=== PATIENT | female | born 1950 | race Asian ===

== ENCOUNTER 2018-12-17 23:01 | Inpatient (IN) | payer OTHER ==
[2018-12-17] MEDS ORDERED: oxyCODONE HCL 5 MG TABLET PO ONE (23:42)
[2018-12-17] MEDS ORDERED: oxyCODONE HCL 5 MG TABLET ONE (23:42)
--- NOTE | 2018-12-17 23:57 | PDOC ---
Documentation entered by Jorje Quinones SCRIBE, acting as scribe for Yen Hernandez DO. Yen Hernandez DO: This documentation has been prepared by the Joni phillips Daniel, SCRIBE, under my direction and personally reviewed by me in its entirety. I confirm that the documentation accurately reflects all work, treatment, procedures, and medical decision making performed by me. Attending Attestation - Resident Resident Name: [email or web address] - ED Attending Attestation I have performed the following: I have examined & evaluated the patient, The case was reviewed & discussed with the resident, I agree w/resident's findings & plan, Exceptions are as noted - HPI HPI: 12/17/18 23:47 The patient is a 68 year old female with a past medical history of herniated disk and hepatic hemangioma here today for evaluation of right sided hip and back pain. The patient reports that she was standing on a pair of chairs when she hit her back on a shelf stepping down and fell landing on her back. She denies any head strike or loss of consciousness. She states that she wasnt able to stand due to the pain in her right hip and right lower back. She also notes some tingling in her legs after the fall. Patient denies headache, lightheadedness. Denies fever, chills. Allergies: NKA - Physicial Exam PE: 12/17/18 23:47 Constitutional: Awake, alert, oriented. No acute distress. Head: Normocephalic. Atraumatic Eyes: PERRL. EOMI. Conjunctivae are not pale. ENT: Mucous membranes are moist and intact. Posterior pharynx without exudates or erythema. Uvula midline. Neck: Supple. Full ROM. No lymphadenopathy. Cardiovascular: Regular rate. Regular rhythm. S1, S2 regular. Distal pulses are 2+ and symmetric. Pulmonary/Chest: No evidence of respiratory distress. Clear to auscultation bilaterally No wheezing, rales or rhonchi. Abdominal: Soft and non-distended. There is no tenderness. No rebound, guarding or rigidity. No organomegaly. No palpable masses. Good bowel sounds. Back: +right buttock, paraspinal L spine, and SI joint tenderness. No midline tenderness. No CVA tenderness. Musculoskeletal: No edema. No cyanosis. No clubbing. Full range of motion in all extremities. Nocalf tenderness. Radial/pedal pulses are intact and 2+ bilaterally Skin: Skin is warm and dry. No petechiae. No purpura. Neurological: Alert and oriented to person, place, and time. Cranial nerves II -XII are grossly intact. Normal speech. Strength is grossly symmetric. No sensory deficits. No signs of cauda equina. No parasthesia to the genital region. Psychiatric: Good eye contact. Normal interaction, affect and behavior. - Medical Decision Making 12/17/18 23:54 I, Dr. Yen Hernandez, DO, attest that this document has been prepared under my direction and personally reviewed by me in its entirety. I further attest, that it accurately reflects all work, treatment, procedures and medical decision -making performed by me. a/p: 68yo female with hx of chronic back pain with a mechanical fall off 2 chairs hitting her back against the counter and landed on her back -pt unable to walk after the event -pt with acute back pain and R hip pain -pt with limited ROM of RLE secondary to fall -pt without signs/symptoms of caude equina -muscle strength 5/5 LE and sensation intact -no saddle paresthesias -no head injury or loc -will send labs, xrays, pain control -ua -oxycodone ordered for pain 12/18/18 00:59 labs reviewed 12/18/18 01:00 no blood in the urine 12/18/18 01:36 no acute fx seen on xray 12/18/18 02:10 pt unable to ambulate will order ct imaging of lumbar spine and pelvis 12/18/18 02:19 if no fx and unable to ambulate will need pt eval in am and poss placment, pain control Heart Score/ECG Review - ECG Intrepretation Comment:: 12/17/18 23:57 sinus at 76, nl axis, nl interval, no acute st/t wave findings
--- NOTE | 2018-12-18 00:01 | PDOC ---
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 Battery [employer] Cell ID: [id number] This is a 68 year old female with PMH significant for depression. She presented to the ER with complaints of severe lower back/hip pain that began a few hours after she suffered from a fall. She was in her kitchen, standing on a chair to reach an item on a shelf. She fell down and landed on the right side of her hip. She did not hit her head, and did not suffer from LOC. She was unable to get up, and called her friend for help, who arrived in 5 minutes. She then called an ambulance. She denies fever, visual changes, SOB, chest pain,nausea, or vomiting. Past History - Past Medical History Allergies/Adverse Reactions: Allergies Allergy/AdvReac Type Severity Reaction Status Date / Time No Known Allergies Allergy Verified 12/17/18 23:36 Home Medications: Ambulatory Orders NK [No Known Home Medication] 12/17/18 COPD: No Other medical history: Disk in back - Immunization History Immunization Up to Date: Yes - Psycho Social/Smoking Cessation Hx Smoking History: Never smoked Have you smoked in the past 12 months: No Information on smoking cessation initiated: No Hx Alcohol Use: No Drug/Substance Use Hx: No Review of Systems - Review of Systems Constitutional: No: Symptoms Reported, See HPI, Chills, Diaphoresis, Fever, Loss of Appetite, Malaise, Night Sweats, Weakness, Weight Stable, Unintentional Wgt. Loss, Unexplained wgt Loss, Other HEENTM: No: Symptoms Reported, See HPI, Eye Pain, Blurred Vision, Tearing, Recent change in vision, Double Vision, Cataracts, Ear Pain, Ocular Prothesis, Ear Discharge, Nose Pain, Nose Congestion, Tinnitus, Nose Bleeding, Hearing Loss , Throat Pain, Throat Swelling, Mouth Pain, Dental Problems, Difficulty Swallowing, Mouth Swelling, Other Cardiac (ROS): No: Symptoms Reported, See HPI, Chest Pain, Edema, Irregular Heart Rate, Lightheadedness, Palpitations, Syncope, Chest Tightness, Other ABD/GI: No: Symptoms Reported, See HPI, Abdominal Distended, Abd. Pain w/ defecation, Blood Streaked Bowels, Constipated, Diarrhea, Difficulty Swallowing , Nausea, Poor Appetite, Poor Fluid Intake, Rectal Bleeding, Vomiting, Indigestion, Abdominal cramping, Tarry Stools, Other Neurological: No: Symptoms reported, See HPI, Headache, Numbness, Paresthesia, Pre-Existing Deficit, Seizure, Tingling, Tremors, Weakness, Unsteady Gait, Ataxia, Dizziness, Other Psychiatric: No: Anxiety, Depression, Frequent Crying, Stressors, Sleep Pattern Change, Emotional Problems, Mood Swings, Change in Appetite, Other *Physical Exam - Vital Signs Last Vital Signs Temp Pulse Resp BP Pulse Ox 98.3 F 71 21 H 184/92 H 100 12/17/18 23:01 12/17/18 23:01 12/17/18 23:01 12/17/18 23:01 12/17/18 23:01 - Physical Exam Comments: 12/18/18 00:04 TRAVEL AGENT: Limited ROM of RLE, muscle strength 5/5 LE, sensations intact General Appearance: Yes: Appropriately Dressed, Apparent Distress HEENT: positive: TMs Normal, Pharynx Normal Neck: positive: Trachea midline Respiratory/Chest: positive: Lungs Clear, Normal Breath Sounds Cardiovascular: positive: Regular Rhythm, Regular Rate Gastrointestinal/Abdominal: positive: Normal Bowel Sounds, Soft Heart Score/ECG Review - Age Age: >/= 65 - ECG Intrepretation Rhythm: Regular Rhythm ED Treatment Course - LABORATORY CBC & Chemistry Diagram: 12/17/18 23:50 12/17/18 23:50 - Medications Given in the ED: ED Medications Discontinued Medications Generic Name Dose Route Start Last Admin Trade Name Rip PRN Reason Stop Dose Admin Oxycodone HCl 5 mg 12/17/18 23:42 12/17/18 23:45 Roxicodone - PO 12/17/18 23:43 5 mg ONCE ONE Administration Medical Decision Making - Medical Decision Making 12/18/18 00:06 - CBC/CMP - Xrays hip, lumbar spine - UA - Oxycodone 5mg 12/18/18 01:03 - Imaging reviewed, no abnormalities - CT Pelvis, Lumbar spine ordered 12/18/18 03:43 - CT Lumbar spine shows fracture of L1 and L2 transverse process - Reassessed for pain and neuro deficits, complains of continued pain but no numbness/tingling - Morphine 2mg ordered - Will consult Ortho 12/18/18 05:04 - Signed out to admitting team Discharge - Discharge Information Problems reviewed: Yes Clinical Impression/Diagnosis: Lumbar vertebral fracture Condition: Guarded - Admission Yes - Follow up/Referral - Patient Discharge Instructions - Post Discharge Activity
[2018-12-18 00:30] LABS: BASO % 0.4 % (0-2.0); EOS % 0.4 % (0-4.5); HEMATOCRIT 38.9 % (32.4-45.2); LYMPH % 11.7 % (8-40); MCH 29.4 pg (25.7-33.7); MCHC 33.4 g/dl (32.0-36.0); MEAN CELL VOLUME 88.1 fl (80-96); MEAN PLT VOLUME 8.8 fl (7.5-11.1); MONO % 4.8 % (3.8-10.2); NEUT % 82.7 % (42.8-82.8); PLATELET COUNT 240 K/MM3 (134-434); RBC 4.42 M/mm3 (3.60-5.2); RDW 13.1 % (11.6-15.6); WHITE BLOOD COUNT 10.3 K/mm3 (4.0-10.0)
[2018-12-18 00:43] LABS: INR 0.92 (0.83-1.09); PROTHROMBIN TIME (PATIENT) 10.9 SEC (9.7-13.0)
[2018-12-18 00:55] LABS: EPI CELLS 1.4 /HPF (0-5/HPF); HYALINE CASTS 0 /lpf (0-8); PH,URINE >= 9.0 (5.0-8.0); URINE APPEARANCE CLEAR; URINE BACTERIA 18.6 /hpf (NEGATIVE); URINE BILIRUBIN NEGATIVE (NEGATIVE); URINE COLOR YELLOW; URINE GLUCOSE (UA) NEGATIVE (NEGATIVE); URINE KETONE NEGATIVE (NEGATIVE); URINE LEUK ESTERASE 1+ (NEGATIVE); URINE NITRITE NEGATIVE (NEGATIVE); URINE PROTEIN NEGATIVE (NEGATIVE); URINE RBC 1 /hpf (0-4); URINE UROBILINOGEN 0.2 mg/dL (0.2-1.0); URINE WBC 3 /hpf (0-5)
[2018-12-18 00:57] LABS: BILIRUBIN,TOTAL 0.5 mg/dL (0.2-1); BLOOD UREA NITROGEN 15.7 mg/dL (7-18); CALCIUM 9.2 mg/dL (8.5-10.1); CREATININE 0.8 mg/dL (0.55-1.3); POTASSIUM 3.7 mmol/L (3.5-5.1); TOT PROT 7.4 g/dl (6.4-8.2)
[2018-12-18] MEDS ORDERED: morphine CARPU-JECT 4 MG/1 ML DISP.SYRIN IVPUSH ONE (03:42)
[2018-12-18] MEDS ORDERED: MORPHINE SULFATE 2 MG/ML VIAL ONE (03:45)
[2018-12-18] MEDS ORDERED: ACETAMINOPHEN 1000 MG/100 ML VIAL (NON FORMULARY) IVPB PRN (05:25)
[2018-12-18] MEDS: SODIUM CHLORIDE 1,000 ML IV SCH ×2 (05:30→09:27)
--- NOTE | 2018-12-18 05:35 | PN ---
Teaching Attending Note Name of Resident: Luis Duarte ATTENDING PHYSICIAN STATEMENT I saw and evaluated the patient. I reviewed the resident's note and discussed the case with the resident. I agree with the resident's findings and plan as documented. SUBJECTIVE: 68 year old [place] woman s/p fall last night off 2 chairs, landed on back, imaging of lumbar spine showed that she sustained fractures to transverse processes of L1-L2. There was no LOC. Denied any loss of sensation. OBJECTIVE: Last Vital Signs Temp Pulse Resp BP Pulse Ox 98.3 F 83 16 145/68 95 12/18/18 06:37 12/18/18 06:37 12/18/18 06:37 12/18/18 06:37 12/18/18 06:37 gen -appears uncomfortable heent -atraumatic, no tenderness, perrla neck supple, no posterior cervical tenderness ext -no shoulder or hip tenderness, no loss of sensation to lower extremities, motor exam limited to pain Abnormal Lab Results 12/17/18 12/17/18 12/17/18 23:50 23:50 23:50 WBC 10.3 H Absolute Neuts (auto) 8.5 H PTT (Actin FS) 23.5 L Anion Gap 7 L Random Glucose 126 H Calcium Urine pH Ur Specific [place] Ur Leukocyte Esterase 12/18/18 12/18/18 00:32 05:40 WBC Absolute Neuts (auto) PTT (Actin FS) Anion Gap 7 L Random Glucose 124 H Calcium 8.4 L Urine pH >= 9.0 H Ur Specific [place] 1.007 L Ur Leukocyte Esterase 1+ H imaging reviewed ASSESSMENT AND PLAN: Right L1-L2 transverse process fracture. No neuro deficits appreciated. Leukocytosis reactive secondary to trauma. -med/surg -npo -pt, ptt, t/s -ortho consult -pain control -bed rest -dvt ppx
[2018-12-18 05:46] LABS: HEMATOCRIT 37.4 % (32.4-45.2); HEMOGLOBIN 12.8 GM/dL (10.7-15.3); MCHC 34.3 g/dl (32.0-36.0); MEAN CELL VOLUME 87.5 fl (80-96); MEAN PLT VOLUME 8.2 fl (7.5-11.1); PLATELET COUNT 229 K/MM3 (134-434); RBC 4.28 M/mm3 (3.60-5.2); RDW 12.9 % (11.6-15.6); WHITE BLOOD COUNT 7.6 K/mm3 (4.0-10.0)
[2018-12-18 05:59] LABS: PROTHROMBIN TIME (PATIENT) 11.8 SEC (9.7-13.0)
[2018-12-18 06:02] LABS: ACTIVATED PTT 35.2 SECONDS (25.2-36.5)
[2018-12-18 06:11] LABS: ALBUMIN 3.6 g/dl (3.4-5.0); BILIRUBIN,TOTAL 0.5 mg/dL (0.2-1); BLOOD UREA NITROGEN 12.4 mg/dL (7-18); CALCIUM 8.4 mg/dL (8.5-10.1); CREATININE 0.7 mg/dL (0.55-1.3); POTASSIUM 3.9 mmol/L (3.5-5.1); TOT PROT 6.7 g/dl (6.4-8.2)
--- NOTE | 2018-12-18 06:38 | CONSULT ---
Consultation: REQUESTING PROVIDER: CONSULT REQUEST: We have been asked to medically evaluate this patient for ( specify). HISTORY OF PRESENT ILLNESS: REVIEW OF SYSTEMS: CONSTITUTIONAL: Absent: fever, chills, diaphoresis, generalized weakness, malaise, loss of appetite, weight change HEENT: Absent: rhinorrhea, nasal congestion, throat pain, throat swelling, difficulty swallowing, mouth swelling, ear pain, eye pain, visual changes CARDIOVASCULAR: Absent: chest pain, syncope, palpitations, irregular heart rate, lightheadedness , peripheral edema RESPIRATORY: Absent: cough, shortness of breath, dyspnea with exertion, orthopnea, wheezing, stridor, hemoptysis GASTROINTESTINAL: Absent: abdominal pain, abdominal distension, nausea, vomiting, diarrhea, constipation, melena, hematochezia GENITOURINARY: Absent: dysuria, frequency, urgency, hesitancy, hematuria, flank pain, genital pain MUSCULOSKELETAL: Absent: myalgia, arthralgia, joint swelling, back pain, neck pain SKIN: Absent: rash, itching, pallor HEMATOLOGIC/IMMUNOLOGIC: Absent: easy bleeding, easy bruising, lymphadenopathy, frequent infections ENDOCRINE: Absent: unexplained weight gain, unexplained weight loss, heat intolerance, cold intolerance NEUROLOGIC: Absent: headache, focal weakness or paresthesias, dizziness, unsteady gait, seizure, mental status changes, bladder or bowel incontinence PSYCHIATRIC: Absent: anxiety, depression, suicidal or homicidal ideation, hallucinations. PHYSICAL EXAMINATION Vital Signs - 24 hr 12/17/18 12/18/18 12/18/18 23:01 01:35 04:49 Temperature 98.3 F Pulse Rate 71 Pulse Rate [ 75 Apical] Respiratory 21 H 19 Rate Blood Pressure 184/92 H Blood Pressure 154/94 [Right Arm] O2 Sat by Pulse 100 100 99 Oximetry (%) 12/18/18 05:58 Temperature 98.5 F Pulse Rate Pulse Rate [ 78 Apical] Respiratory 18 Rate Blood Pressure Blood Pressure 148/82 [Right Arm] O2 Sat by Pulse 96 Oximetry (%) GENERAL: Awake, alert, and fully oriented, in no acute distress. HEAD: Normal with no signs of trauma. EYES: Pupils equal, round and reactive to light, extraocular movements intact, sclera anicteric, conjunctiva clear. No lid lag. EARS, NOSE, THROAT: Ears normal, nares patent, oropharynx clear without exudates. Moist mucous membranes. NECK: Normal range of motion, supple without lymphadenopathy, JVD, or masses. LUNGS: Breath sounds equal, clear to auscultation bilaterally. No wheezes, and no crackles. No accessory muscle use. HEART: Regular rate and rhythm, normal S1 and S2 without murmur, rub or gallop. ABDOMEN: Soft, nontender, not distended, normoactive bowel sounds, no guarding, no rebound, no masses. No hepatomegaly or splenomegaly. MUSCULOSKELETAL: Normal range of motion at all joints. No bony deformities or tenderness. No CVA tenderness. UPPER EXTREMITIES: 2+ pulses, warm, well-perfused. No cyanosis. No clubbing. Cap refill <2 seconds. No peripheral edema. LOWER EXTREMITIES: 2+ pulses, warm, well-perfused. No calf tenderness. No peripheral edema. NEUROLOGICAL: Cranial nerves II-XII intact. Normal speech. Normal gait. PSYCHIATRIC: Cooperative. Good eye contact. Appropriate mood and affect. SKIN: Warm, dry, normal turgor, no rashes or lesions noted. Laboratory Results - last 24 hr 12/17/18 12/17/18 12/17/18 23:50 23:50 23:50 WBC 10.3 H RBC 4.42 Hgb 13.0 Hct 38.9 MCV 88.1 MCH 29.4 MCHC 33.4 RDW 13.1 Plt Count 240 MPV 8.8 Absolute Neuts (auto) 8.5 H Neutrophils % 82.7 Lymphocytes % 11.7 Monocytes % 4.8 Eosinophils % 0.4 Basophils % 0.4 Nucleated RBC % 0 PT with INR INR PTT (Actin FS) 23.5 L Sodium 141 Potassium 3.7 Chloride 106 Carbon Dioxide 28 Anion Gap 7 L BUN 15.7 Creatinine 0.8 Est GFR (CKD-EPI)AfAm 87.80 Est GFR (CKD-EPI)NonAf 75.75 Random Glucose 126 H Calcium 9.2 Magnesium 2.0 Total Bilirubin 0.5 AST 21 ALT 30 Alkaline Phosphatase 78 Total Protein 7.4 Albumin 4.0 Urine Color Urine Appearance Urine pH Ur Specific [place] Urine Protein Urine Glucose (UA) Urine Ketones Urine Blood Urine Nitrite Urine Bilirubin Urine Urobilinogen Ur Leukocyte Esterase Urine WBC (Auto) Urine RBC (Auto) Urine Casts (Auto) U Epithel Cells (Auto) Urine Bacteria (Auto) Blood Type Antibody Screen 12/17/18 12/17/18 12/17/18 23:50 23:50 23:50 WBC RBC Hgb Hct MCV MCH MCHC RDW Plt Count MPV Absolute Neuts (auto) Neutrophils % Lymphocytes % Monocytes % Eosinophils % Basophils % Nucleated RBC % PT with INR 10.90 INR 0.92 PTT (Actin FS) Sodium Potassium Chloride Carbon Dioxide Anion Gap BUN Creatinine Est GFR (CKD-EPI)AfAm Est GFR (CKD-EPI)NonAf Random Glucose Calcium Magnesium Cancelled Total Bilirubin AST ALT Alkaline Phosphatase Total Protein Albumin Urine Color Urine Appearance Urine pH Ur Specific [place] Urine Protein Urine Glucose (UA) Urine Ketones Urine Blood Urine Nitrite Urine Bilirubin Urine Urobilinogen Ur Leukocyte Esterase Urine WBC (Auto) Urine RBC (Auto) Urine Casts (Auto) U Epithel Cells (Auto) Urine Bacteria (Auto) Blood Type A POSITIVE Antibody Screen Negative 12/18/18 12/18/18 12/18/18 00:32 05:40 05:40 WBC 7.6 RBC 4.28 Hgb 12.8 Hct 37.4 MCV 87.5 MCH 30.0 MCHC 34.3 RDW 12.9 Plt Count 229 MPV 8.2 Absolute Neuts (auto) Neutrophils % Lymphocytes % Monocytes % Eosinophils % Basophils % Nucleated RBC % PT with INR 11.80 INR 1.00 PTT (Actin FS) 35.2 Sodium Potassium Chloride Carbon Dioxide Anion Gap BUN Creatinine Est GFR (CKD-EPI)AfAm Est GFR (CKD-EPI)NonAf Random Glucose Calcium Magnesium Total Bilirubin AST ALT Alkaline Phosphatase Total Protein Albumin Urine Color Yellow Urine Appearance Clear Urine pH >= 9.0 H Ur Specific [place] 1.007 L Urine Protein Negative Urine Glucose (UA) Negative Urine Ketones Negative Urine Blood Negative Urine Nitrite Negative Urine Bilirubin Negative Urine Urobilinogen 0.2 Ur Leukocyte Esterase 1+ H Urine WBC (Auto) 3 Urine RBC (Auto) 1 Urine Casts (Auto) 0 U Epithel Cells (Auto) 1.4 Urine Bacteria (Auto) 18.6 Blood Type Antibody Screen 12/18/18 05:40 WBC RBC Hgb Hct MCV MCH MCHC RDW Plt Count MPV Absolute Neuts (auto) Neutrophils % Lymphocytes % Monocytes % Eosinophils % Basophils % Nucleated RBC % PT with INR INR PTT (Actin FS) Sodium 140 Potassium 3.9 Chloride 107 Carbon Dioxide 26 Anion Gap 7 L BUN 12.4 Creatinine 0.7 Est GFR (CKD-EPI)AfAm 103.18 Est GFR (CKD-EPI)NonAf 89.03 Random Glucose 124 H Calcium 8.4 L Magnesium Total Bilirubin 0.5 AST 19 ALT 26 Alkaline Phosphatase 72 Total Protein 6.7 Albumin 3.6 Urine Color Urine Appearance Urine pH Ur Specific [place] Urine Protein Urine Glucose (UA) Urine Ketones Urine Blood Urine Nitrite Urine Bilirubin Urine Urobilinogen Ur Leukocyte Esterase Urine WBC (Auto) Urine RBC (Auto) Urine Casts (Auto) U Epithel Cells (Auto) Urine Bacteria (Auto) Blood Type Antibody Screen Active Medications Generic Name Dose Route Start Last Admin Trade Name Freq PRN Reason Stop Dose Admin Acetaminophen 1,000 mg 12/18/18 05:25 12/18/18 05:30 Ofirmev Injection - IVPB 1,000 mg Q6H PRN Administration PAIN LEVEL 1-5 Sodium Chloride 1,000 mls @ 75 mls/hr 12/18/18 05:30 12/18/18 05:30 Normal Saline - IV 75 mls/hr ASDIR SAMI Administration ASSESSMENT/PLAN: Dispo: We will continue to follow the patient. Thank you for this consultative opportunity. Visit type - Emergency Visit Emergency Visit: Yes ED Registration Date: 12/18/18 Care time: The patient presented to the Emergency Department on the above date and was hospitalized for further evaluation of their emergent condition. - New Patient This patient is new to me today: Yes Date on this admission: 12/18/18 - Critical Care Critical Care patient: No ATTENDING PHYSICIAN STATEMENT I saw and evaluated the patient. I reviewed the resident's note and discussed the case with the resident. I agree with the resident's findings and plan as documented. SUBJECTIVE: OBJECTIVE: ASSESSMENT AND PLAN:
[2018-12-18] MEDS ORDERED: MORPHINE SULFATE 2 MG/ML VIAL IVPUSH PRN (06:47)
--- NOTE | 2018-12-18 06:47 | HP ---
CHIEF COMPLAINT: PCP: none HISTORY OF PRESENT ILLNESS: 68 y/o tamazight speaking female here for right sided lower back pain after fall that occurred last night. Patient states she was cleaning her shelves standing on a chair when she slipped and fell down. As she was falling she hit her back on a nearby table and then hit the floor. She fell on her back and did not hit her head. She denies LOC. She was not able to get up and crawled to a nearby phone which she used to call a friend who came to help her and called EMS. She is not able to quantify her pain but states it is very severe. Patient states she has not been able to walk since she fell down. She denies any dizziness, SOB , chest pain, incontinence, loss of sensation, or other symptoms. Patient lives at home by herself, has a son and daughter who are busy with their business so they are unable to check up on her often. ER course was notable for: (1) CT lumbar spine showing fracture of the right transverse process of L1 and L2 (2) unable to ambulate after pain medication Recent Travel: none PAST MEDICAL HISTORY: questionable medical history: herniated disc, hepatic hemangioma, depression PAST SURGICAL HISTORY: cervical surgery? Social History: Smoking: denies Alcohol: denies Drugs: denies Allergies No Known Allergies Allergy (Verified 12/17/18 23:36) HOME MEDICATIONS: Home Medications Medication Instructions Recorded NK [No Known Home Medication] 12/17/18 REVIEW OF SYSTEMS Constitutional: weakness, severe pain. denies loss of appetite, fever HEENT: denies sore throat, vision changes, congestion Cardio: denies chest pain, lightheadedness, palpitations Resp: denies SOB, wheezing GI: denies abd pain, N/V/D, constipation MSK: lower back pain, denies joint pain, neck pain SKIN: no ecchymosis or lacerations Neuro: denies incontinence, loss of consciousness, numbness, tingling, headache Psych: denies anxiety PHYSICAL EXAMINATION Vital Signs - 24 hr 12/17/18 12/18/18 12/18/18 23:01 01:35 04:49 Temperature 98.3 F Pulse Rate 71 Pulse Rate [ 75 Apical] Respiratory 21 H 19 Rate Blood Pressure 184/92 H Blood Pressure 154/94 [Right Arm] O2 Sat by Pulse 100 100 99 Oximetry (%) 12/18/18 12/18/18 05:58 06:37 Temperature 98.5 F 98.3 F Pulse Rate Pulse Rate [ 78 83 Apical] Respiratory 18 16 Rate Blood Pressure Blood Pressure 148/82 145/68 [Right Arm] O2 Sat by Pulse 96 95 Oximetry (%) GENERAL: severe distress secondary to pain. Awake, alert, and fully oriented HEAD: NC/AT EYES: PERRL, EOMI EARS, NOSE, THROAT: Ears normal, nares patent. Moist mucous membranes. NECK: supple. normal ROM, no cervical spine tenderness to palpation. LUNGS: Breath sounds equal, clear to auscultation bilaterally. No wheezes, and no crackles. No accessory muscle use. HEART: Regular rate and rhythm, normal S1 and S2 without murmur, rub or gallop. ABDOMEN: Soft, nontender, not distended, normoactive bowel sounds MUSCULOSKELETAL: tenderness to palpation over right lumbar region. No step offs palpated on cervical/thoracic/lumbar spine. no bony tenderness to palpation over right hip. unable to assess ROM of hip or back secondary to pain. UPPER EXTREMITIES: 2+ pulses, warm, well-perfused. No cyanosis. No clubbing. No peripheral edema. LOWER EXTREMITIES: 2+ pulses, warm, well-perfused. No calf tenderness. No peripheral edema. NEUROLOGICAL: Grossly normal sensation. normal babinski sign. 5/5 strength upper and lower extremity. CN 2-12 normal. PSYCHIATRIC: Cooperative. Good eye contact. Appropriate mood and affect. SKIN: no ecchymosis noted. Warm, dry, normal turgor, no rashes or lesions noted , normal capillary refill. Laboratory Results - last 24 hr 12/17/18 12/17/18 12/17/18 23:50 23:50 23:50 WBC 10.3 H RBC 4.42 Hgb 13.0 Hct 38.9 MCV 88.1 MCH 29.4 MCHC 33.4 RDW 13.1 Plt Count 240 MPV 8.8 Absolute Neuts (auto) 8.5 H Neutrophils % 82.7 Lymphocytes % 11.7 Monocytes % 4.8 Eosinophils % 0.4 Basophils % 0.4 Nucleated RBC % 0 PT with INR INR PTT (Actin FS) 23.5 L Sodium 141 Potassium 3.7 Chloride 106 Carbon Dioxide 28 Anion Gap 7 L BUN 15.7 Creatinine 0.8 Est GFR (CKD-EPI)AfAm 87.80 Est GFR (CKD-EPI)NonAf 75.75 Random Glucose 126 H Calcium 9.2 Magnesium 2.0 Total Bilirubin 0.5 AST 21 ALT 30 Alkaline Phosphatase 78 Total Protein 7.4 Albumin 4.0 Urine Color Urine Appearance Urine pH Ur Specific [place] Urine Protein Urine Glucose (UA) Urine Ketones Urine Blood Urine Nitrite Urine Bilirubin Urine Urobilinogen Ur Leukocyte Esterase Urine WBC (Auto) Urine RBC (Auto) Urine Casts (Auto) U Epithel Cells (Auto) Urine Bacteria (Auto) Blood Type Antibody Screen 12/17/18 12/17/18 12/17/18 23:50 23:50 23:50 WBC RBC Hgb Hct MCV MCH MCHC RDW Plt Count MPV Absolute Neuts (auto) Neutrophils % Lymphocytes % Monocytes % Eosinophils % Basophils % Nucleated RBC % PT with INR 10.90 INR 0.92 PTT (Actin FS) Sodium Potassium Chloride Carbon Dioxide Anion Gap BUN Creatinine Est GFR (CKD-EPI)AfAm Est GFR (CKD-EPI)NonAf Random Glucose Calcium Magnesium Cancelled Total Bilirubin AST ALT Alkaline Phosphatase Total Protein Albumin Urine Color Urine Appearance Urine pH Ur Specific [place] Urine Protein Urine Glucose (UA) Urine Ketones Urine Blood Urine Nitrite Urine Bilirubin Urine Urobilinogen Ur Leukocyte Esterase Urine WBC (Auto) Urine RBC (Auto) Urine Casts (Auto) U Epithel Cells (Auto) Urine Bacteria (Auto) Blood Type A POSITIVE Antibody Screen Negative 12/18/18 12/18/18 12/18/18 00:32 05:40 05:40 WBC 7.6 RBC 4.28 Hgb 12.8 Hct 37.4 MCV 87.5 MCH 30.0 MCHC 34.3 RDW 12.9 Plt Count 229 MPV 8.2 Absolute Neuts (auto) Neutrophils % Lymphocytes % Monocytes % Eosinophils % Basophils % Nucleated RBC % PT with INR 11.80 INR 1.00 PTT (Actin FS) 35.2 Sodium Potassium Chloride Carbon Dioxide Anion Gap BUN Creatinine Est GFR (CKD-EPI)AfAm Est GFR (CKD-EPI)NonAf Random Glucose Calcium Magnesium Total Bilirubin AST ALT Alkaline Phosphatase Total Protein Albumin Urine Color Yellow Urine Appearance Clear Urine pH >= 9.0 H Ur Specific [place] 1.007 L Urine Protein Negative Urine Glucose (UA) Negative Urine Ketones Negative Urine Blood Negative Urine Nitrite Negative Urine Bilirubin Negative Urine Urobilinogen 0.2 Ur Leukocyte Esterase 1+ H Urine WBC (Auto) 3 Urine RBC (Auto) 1 Urine Casts (Auto) 0 U Epithel Cells (Auto) 1.4 Urine Bacteria (Auto) 18.6 Blood Type Antibody Screen 12/18/18 05:40 WBC RBC Hgb Hct MCV MCH MCHC RDW Plt Count MPV Absolute Neuts (auto) Neutrophils % Lymphocytes % Monocytes % Eosinophils % Basophils % Nucleated RBC % PT with INR INR PTT (Actin FS) Sodium 140 Potassium 3.9 Chloride 107 Carbon Dioxide 26 Anion Gap 7 L BUN 12.4 Creatinine 0.7 Est GFR (CKD-EPI)AfAm 103.18 Est GFR (CKD-EPI)NonAf 89.03 Random Glucose 124 H Calcium 8.4 L Magnesium Total Bilirubin 0.5 AST 19 ALT 26 Alkaline Phosphatase 72 Total Protein 6.7 Albumin 3.6 Urine Color Urine Appearance Urine pH Ur Specific [place] Urine Protein Urine Glucose (UA) Urine Ketones Urine Blood Urine Nitrite Urine Bilirubin Urine Urobilinogen Ur Leukocyte Esterase Urine WBC (Auto) Urine RBC (Auto) Urine Casts (Auto) U Epithel Cells (Auto) Urine Bacteria (Auto) Blood Type Antibody Screen ASSESSMENT/PLAN: 68 y/o tamazight speaking female here for right sided lower back pain after fall that occurred last night. 1)Right lower back pain - CT shows right L1, L2 transverse process fracture -Ortho consulted, Dr. Mata -Pre-op labs ordered in case surgical intervention is required -Ofirmev and Morphine for pain control 2)HTN - questionable PMHx. HTN may be secondary to pain -monitor 3)Prophylaxis -SCDs -Holding anticoags in case orthopedics recommend surgical intervention 4)FEN -NS @ 75mls/hr 5)Disposition -admitted to med/surg Visit type - Emergency Visit Emergency Visit: Yes ED Registration Date: 12/18/18 Care time: The patient presented to the Emergency Department on the above date and was hospitalized for further evaluation of their emergent condition. - New Patient This patient is new to me today: Yes Date on this admission: 12/18/18 - Critical Care Critical Care patient: No ATTENDING PHYSICIAN STATEMENT I saw and evaluated the patient. I reviewed the resident's note and discussed the case with the resident. I agree with the resident's findings and plan as documented. SUBJECTIVE: OBJECTIVE: ASSESSMENT AND PLAN:
[2018-12-18] MEDS: DULoxetine HCL 30 MG CAPSULE.DR PO SCH ×2 (09:29→15:16)
[2018-12-18] MEDS ORDERED: oxyCODONE HCL 5 MG TABLET PO PRN (09:41)
--- NOTE | 2018-12-18 12:08 | PN ---
Teaching Attending Note Name of Resident: Acosta Fitch ATTENDING PHYSICIAN STATEMENT I saw and evaluated the patient. I reviewed the resident's note and discussed the case with the resident. I agree with the resident's findings and plan as documented. SUBJECTIVE: c.o.d. clerk phone [phone] used No fever or chills. No BARROW, no weakness. has lower back pain in R side. no incontinence to urine tr stool. NO urinary retention . reports epigastric pain intermittently for past few months. no radiation , no relation to exertion . not clear if food affects it. Very poor historian . No cp or epigastric pain now. No SOB. OBJECTIVE: NAD . looks in pain with any minimal movement MMM, no facial droop. CV: RRR, nO MRG Lungs: clear anteriorly , was not able to turn. Abd: soft, NT, ND , NL BS NEuro of LE: Strength 5/5 in hip flexion, knee extension, and ankle dorsiflexion and plantar flexion b/l. limited knee flexion due to pain. Nl sensation to light touch on both sides. Knee jerk and ankle jerk 2+ b/l ASSESSMENT AND PLAN: 68 y/o lady with h/o depression who came in with back pain after a mechanical fall. She was found to have Right L1, L2 transverse process Fx 1- Right L1, L2 transverse process Fx: no neuro deficits but lots of pain. - cont morphine and add oxycodone - add standing Tylenol - order TLSO brace - ortho consult pending - PT eval - Dc IVF 2- Depression: cont Cymbalta DVT PX
--- NOTE | 2018-12-18 12:13 | EKG ---
Test Reason : Blood Pressure : / mmHG Vent. Rate : 076 BPM Atrial Rate : 076 BPM P-R Int : 192 ms QRS Dur : 068 ms QT Int : 416 ms P-R-T Axes : 036 008 047 degrees QTc Int : 468 ms NORMAL SINUS RHYTHM POSSIBLE INFERIOR INFARCT , AGE UNDETERMINED ABNORMAL ECG NO PREVIOUS ECGS AVAILABLE Confirmed by PATRICIO LOMAX MD ([id number]) on 12/18/2018 12:13:11 PM Referred By: Confirmed By:PATRICIO LOMAX MD
[2018-12-18] MEDS: ACETAMINOPHEN 325 MG TABLET (FP) PO SCH ×2 (13:15→18:15)
[2018-12-18] MEDS: oxyCODONE HCL 5 MG TABLET PO PRN ×2 (13:17→21:29)
[2018-12-18] MEDS: HEPARIN NA (PORCINE) 5,000 UNITS/ML 1ML VIAL SQ SCH ×2 (13:18→21:29)
--- NOTE | 2018-12-18 14:29 | PN ---
Physical Exam: SUBJECTIVE: Patient seen and examined. Pt. states that she has lower right back pain that is worsened with movement. Pt. describes the pain as a throbbing. Pt. denies any numbness and tingling in her extremities or groin. Pt. denies any urinary or bowel habit changes. OBJECTIVE: Vital Signs Period Temp Pulse Resp BP Sys/Ram Pulse Ox Last 24 Hr 98.3 F-98.9 F 65-83 16-21 145-184/68-94 95-100 GENERAL: The patient is awake, alert, and fully oriented, in no acute distress. HEAD: Normal with no signs of trauma. EYES: Sclera anicteric, conjunctiva clear. ENT: Ears normal, nares patent, oropharynx clear without exudates, moist mucous membranes. LUNGS: Breath sounds equal, clear to auscultation bilaterally, no wheezes, no crackles, no accessory muscle use. HEART: Regular rate and rhythm, S1, S2 without murmur ABDOMEN: Soft, nontender, nondistended, normoactive bowel sounds, no guarding, no rebound EXTREMITIES: 2+ dorsal pedal pulses, warm, well-perfused, no edema. Straight- leg test negative, Pt. ROM limited by pain, no point tenderness along lumbar spine, Pt. endorses exquisite tenderness along right posterior hip and lumbar back without increase warmth or swelling. NEUROLOGICAL: Cranial nerves II through XII grossly intact. Normal speech, gait not observed. PSYCH: Normal mood, normal affect. SKIN: Warm, dry, normal turgor Laboratory Results - last 24 hr 12/17/18 12/17/18 12/17/18 23:50 23:50 23:50 WBC 10.3 H RBC 4.42 Hgb 13.0 Hct 38.9 MCV 88.1 MCH 29.4 MCHC 33.4 RDW 13.1 Plt Count 240 MPV 8.8 Absolute Neuts (auto) 8.5 H Neutrophils % 82.7 Lymphocytes % 11.7 Monocytes % 4.8 Eosinophils % 0.4 Basophils % 0.4 Nucleated RBC % 0 PT with INR INR PTT (Actin FS) 23.5 L Sodium 141 Potassium 3.7 Chloride 106 Carbon Dioxide 28 Anion Gap 7 L BUN 15.7 Creatinine 0.8 Est GFR (CKD-EPI)AfAm 87.80 Est GFR (CKD-EPI)NonAf 75.75 Random Glucose 126 H Calcium 9.2 Magnesium 2.0 Total Bilirubin 0.5 AST 21 ALT 30 Alkaline Phosphatase 78 Total Protein 7.4 Albumin 4.0 Urine Color Urine Appearance Urine pH Ur Specific [place] Urine Protein Urine Glucose (UA) Urine Ketones Urine Blood Urine Nitrite Urine Bilirubin Urine Urobilinogen Ur Leukocyte Esterase Urine WBC (Auto) Urine RBC (Auto) Urine Casts (Auto) U Epithel Cells (Auto) Urine Bacteria (Auto) Blood Type Antibody Screen 12/17/18 12/17/18 12/17/18 23:50 23:50 23:50 WBC RBC Hgb Hct MCV MCH MCHC RDW Plt Count MPV Absolute Neuts (auto) Neutrophils % Lymphocytes % Monocytes % Eosinophils % Basophils % Nucleated RBC % PT with INR 10.90 INR 0.92 PTT (Actin FS) Sodium Potassium Chloride Carbon Dioxide Anion Gap BUN Creatinine Est GFR (CKD-EPI)AfAm Est GFR (CKD-EPI)NonAf Random Glucose Calcium Magnesium Cancelled Total Bilirubin AST ALT Alkaline Phosphatase Total Protein Albumin Urine Color Urine Appearance Urine pH Ur Specific [place] Urine Protein Urine Glucose (UA) Urine Ketones Urine Blood Urine Nitrite Urine Bilirubin Urine Urobilinogen Ur Leukocyte Esterase Urine WBC (Auto) Urine RBC (Auto) Urine Casts (Auto) U Epithel Cells (Auto) Urine Bacteria (Auto) Blood Type A POSITIVE Antibody Screen Negative 12/18/18 12/18/18 12/18/18 00:32 05:40 05:40 WBC 7.6 RBC 4.28 Hgb 12.8 Hct 37.4 MCV 87.5 MCH 30.0 MCHC 34.3 RDW 12.9 Plt Count 229 MPV 8.2 Absolute Neuts (auto) Neutrophils % Lymphocytes % Monocytes % Eosinophils % Basophils % Nucleated RBC % PT with INR 11.80 INR 1.00 PTT (Actin FS) 35.2 Sodium Potassium Chloride Carbon Dioxide Anion Gap BUN Creatinine Est GFR (CKD-EPI)AfAm Est GFR (CKD-EPI)NonAf Random Glucose Calcium Magnesium Total Bilirubin AST ALT Alkaline Phosphatase Total Protein Albumin Urine Color Yellow Urine Appearance Clear Urine pH >= 9.0 H Ur Specific [place] 1.007 L Urine Protein Negative Urine Glucose (UA) Negative Urine Ketones Negative Urine Blood Negative Urine Nitrite Negative Urine Bilirubin Negative Urine Urobilinogen 0.2 Ur Leukocyte Esterase 1+ H Urine WBC (Auto) 3 Urine RBC (Auto) 1 Urine Casts (Auto) 0 U Epithel Cells (Auto) 1.4 Urine Bacteria (Auto) 18.6 Blood Type Antibody Screen 12/18/18 12/18/18 05:40 09:40 WBC RBC Hgb Hct MCV MCH MCHC RDW Plt Count MPV Absolute Neuts (auto) Neutrophils % Lymphocytes % Monocytes % Eosinophils % Basophils % Nucleated RBC % PT with INR INR PTT (Actin FS) Sodium 140 Potassium 3.9 Chloride 107 Carbon Dioxide 26 Anion Gap 7 L BUN 12.4 Creatinine 0.7 Est GFR (CKD-EPI)AfAm 103.18 Est GFR (CKD-EPI)NonAf 89.03 Random Glucose 124 H Calcium 8.4 L Magnesium Total Bilirubin 0.5 AST 19 ALT 26 Alkaline Phosphatase 72 Total Protein 6.7 Albumin 3.6 Urine Color Urine Appearance Urine pH Ur Specific [place] Urine Protein Urine Glucose (UA) Urine Ketones Urine Blood Urine Nitrite Urine Bilirubin Urine Urobilinogen Ur Leukocyte Esterase Urine WBC (Auto) Urine RBC (Auto) Urine Casts (Auto) U Epithel Cells (Auto) Urine Bacteria (Auto) Blood Type A POSITIVE Antibody Screen Active Medications Current Medications Acetaminophen (Tylenol -) 650 mg PO Q6H [facility] Last Admin: 12/18/18 13:15 Dose: 650 mg Duloxetine HCl (Cymbalta -) 30 mg PO DAILY [facility] Heparin Sodium (Porcine) (Heparin -) 5,000 unit SQ TID [facility] Last Admin: 12/18/18 13:18 Dose: 5,000 unit Morphine Sulfate (Morphine Sulfate) 1 mg IVPUSH Q4H PRN PRN Reason: PAIN LEVEL 4 - 6 Last Admin: 12/18/18 09:27 Dose: 1 mg Oxycodone HCl (Roxicodone -) 5 mg PO Q4H PRN PRN Reason: PAIN LEVEL 4 - 6 Oxycodone HCl (Roxicodone -) 10 mg PO Q4H PRN PRN Reason: PAIN LEVEL 7 - 10 Last Admin: 12/18/18 13:17 Dose: 10 mg ASSESSMENT/PLAN: Pt. is a 68 y.o. Luxem[place]ish-speaking F presenting for right sided lower back pain after mechanical fall. #Right lower back pain 2/[address] shows right L1, L2 transverse process fracture and chronic degenerative changes and associated disc bulges with spinal canal stenosis Xrays Negative Pelvic CT Negative c/w Physical Therapy- will likely need outpatient rehab. f/u Ortho consult (Dr. Maat) Given TLSO Brace c/w Tylenol and Oxycodone for pain control #Depression c/w Duloxetine 30mg #HTN possibly 2/2 pain, continue to monitor -monitor #DVT Ppx. -SCDs -Hep SQ #FEN -NS @ 75mls/hr Visit type - Emergency Visit Emergency Visit: Yes ED Registration Date: 12/18/18 Care time: The patient presented to the Emergency Department on the above date and was hospitalized for further evaluation of their emergent condition. - New Patient This patient is new to me today: No - Critical Care Critical Care patient: No - Discharge Referral Referred to [facility] Med [facility] No ATTENDING PHYSICIAN STATEMENT I saw and evaluated the patient. I reviewed the resident's note and discussed the case with the resident. I agree with the resident's findings and plan as documented. SUBJECTIVE: OBJECTIVE: ASSESSMENT AND PLAN:
--- NOTE | 2018-12-18 19:41 | CONS ---
DATE OF CONSULTATION: 12/18/2018 CHIEF COMPLAINT: Lower back pain. HISTORY OF PRESENT ILLNESS: This is a 68-year-old female who was brought into the ER by EMS after she fell off a chair while cleaning some shelves. She fell directly onto the back. She notes pain in the lower back. She notes a little bit of tingling in both feet, but no other areas of numbness. She has no saddle anesthesia. She has no incontinence or other change in bowel habits at this time. Patient does note a history of herniated disk about 25 years ago. PAST MEDICAL HISTORY: Significant for hepatic hemangioma, depression. PAST SURGICAL HISTORY: Noncontributory. SOCIAL HISTORY: Denies alcohol, tobacco, or drugs. ALLERGIES: Denies. MEDICATIONS: Denies. REVIEW OF SYMPTOMS: Negative for any fever, chills, nausea, vomiting, or night sweats. PHYSICAL EXAMINATION: General: This is an elderly female in no acute distress. She is seen lying in hospital bed. Back: Examination demonstrates tenderness in the lumbar paraspinal regions on both sides. She has no pain with log roll of either hip. Distally, sensation is intact to light touch. DP pulses 2+. EHL, FHL, TA, G, S 5/5. CT and x-ray images are reviewed. There are minimally displaced fractures of the lumbar first and second transverse processes on the right. She does have diffuse degenerative change as well. ASSESSMENT: Transverse process fractures. PLAN: I discussed today's findings with the patient. We utilized the [employer] phone for the entirety of her history and patient encounter. The patient has minimally displaced transverse process fractures. These should heal well with conservative care. At this point, she can resume a regular diet. She may weight bear as tolerated. I recommend starting physical therapy to mobilize her. These typically take several months to heal. For pain relief, she can use a combination between Tylenol, anti-inflammatories, and narcotics as needed. She may require the use of a walker for mobilization. We will plan to have followup x-ray in about 2 weeks. CARLIE MONTANA M.D. MANDA/[id number]
[2018-12-18] MEDS: CALCIUM 500MG/VIT-D 200 UNITS COMBO TABLET (FP) PO SCH (23:00)
[2018-12-19] MEDS: ACETAMINOPHEN 325 MG TABLET (FP) PO SCH ×4 (01:10→18:52)
[2018-12-19] MEDS: HEPARIN NA (PORCINE) 5,000 UNITS/ML 1ML VIAL SQ SCH ×3 (05:29→21:11)
[2018-12-19] MEDS: oxyCODONE HCL 5 MG TABLET PO PRN (05:33)
--- NOTE | 2018-12-19 09:05 | PN ---
Physical Exam: SUBJECTIVE: Patient seen and examined at bedside. Significant pain reported in the lower back, improved from yesterday. Has not yet walked by herself or with physical therapy. Reports that she has not yet urinated. Denies numbness/tingling/ weakness. No chest pain/SOB OBJECTIVE: Vital Signs Period Temp Pulse Resp BP Sys/Ram Pulse Ox Last 24 Hr 97.7 F-98.9 F 58-79 18-20 130-162/61-93 92-95 GENERAL: A&Ox3, mild distress during movement EYES: PERRLA, EOMI ENT: Moist mucus membranes LUNGS: CTA, no wheezes HEART: RRR, no murmurs ABDOMEN: Soft, nontender, BS present, bladder palpated and appears to be distended MUSCULOSKELETAL: No CVA Tenderness EXTREMITIES: 2+ pulses, no edema. NEUROLOGICAL: No motor or sensory deficits. Normal rectal tone. Laboratory Results - last 24 hr 12/18/18 09:40 Blood Type A POSITIVE Active Medications Generic Name Dose Route Start Last Admin Trade Name Freq PRN Reason Stop Dose Admin Acetaminophen 650 mg 12/18/18 13:00 12/19/18 07:11 Tylenol - PO 650 mg Q6H [facility]I Administration Calcium Carbonate/Cholecalciferol 1 tab 12/18/18 22:00 12/18/18 23:00 Os-Guillermo 500+D - PO 1 tab BID SAMI Administration Celecoxib 200 mg 12/19/18 10:00 Celebrex - PO DAILY [facility]I Duloxetine HCl 30 mg 12/18/18 10:00 12/18/18 15:16 Cymbalta - PO 30 mg DAILY [facility] Administration Heparin Sodium (Porcine) 5,000 unit 12/18/18 14:00 12/19/18 05:29 Heparin - SQ 5,000 unit TID [facility]I Administration Morphine Sulfate 1 mg 12/18/18 06:47 12/18/18 09:27 Morphine Sulfate IVPUSH 1 mg Q4H PRN Administration PAIN LEVEL 4 - 6 Oxycodone HCl 5 mg 12/18/18 09:41 Roxicodone - PO Q4H PRN PAIN LEVEL 4 - 6 Oxycodone HCl 10 mg 12/18/18 09:41 12/19/18 05:33 Roxicodone - PO 10 mg Q4H PRN Administration PAIN LEVEL 7 - 10 ASSESSMENT/PLAN: 68 year old female with a hx of depression admitted s/p fall and found to have R sided L1/2 transverse process fractures #L1/L2 Transverse Process Fractures: pain appears to be improving with pain medication. Patient has not yet been ambulatory and has not yet urinated -per ortho, conservative management and can dose with tylenol/NSAID/narcotics as necessary to control pain, no weight bearing restrictions -will need to walk with physical therapy as patient has not yet been able to ambulate; she cannot sit up at the side of the bed without significant pain -continue oxycodone 10mg Q4 PRN; last dose this morning 5:33am, may be able to DC morphine as last dose was yesterday morning -will need f/u Xray in 2 weeks -disposition will depend on ability to ambulate with physical therapy -continue Ca/Vitamin D -restart diet as there is no surgical intervention -workup for urinary retention as below #Urinary retention: post-void residual 400cc, concern for spinal process -bladder scan showed 400cc residual -thompson inserted -MRI thoracic/lumbar spine without contrast ordered #Depression: chronic -continue cymbalta #FEN -no standing fluids -replete lytes as necessary -regular diet restarted #Prophylaxis -heparin 5000 TID #Disposition: -med/surg, dispo will depend on ability to walk with PT and results of MRI, anticipate 1-2 days until DC Visit type - Emergency Visit Emergency Visit: No - New Patient This patient is new to me today: Yes Date on this admission: 12/19/18 - Critical Care Critical Care patient: No ATTENDING PHYSICIAN STATEMENT I saw and evaluated the patient. I reviewed the resident's note and discussed the case with the resident. I agree with the resident's findings and plan as documented. SUBJECTIVE: OBJECTIVE: ASSESSMENT AND PLAN:
[2018-12-19] MEDS: DULoxetine HCL 30 MG CAPSULE.DR PO SCH (09:21)
[2018-12-19] MEDS: CALCIUM 500MG/VIT-D 200 UNITS COMBO TABLET (FP) PO SCH ×2 (09:22→21:11)
[2018-12-19] MEDS: CELECOXIB 200 MG CAPSULE PO SCH (09:22)
--- NOTE | 2018-12-19 09:52 | PN ---
Teaching Attending Note Name of Resident: George Madrid ATTENDING PHYSICIAN STATEMENT I saw and evaluated the patient. I reviewed the resident's note and discussed the case with the resident. I agree with the resident's findings and plan as documented. 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 No N/V, no weakness in legs or feet, but has cramps in feet ( old before the fall). back pain is localized in backa nd does not radiate to LE . no SOB or CP . complains of no urinary incontinence but has difficulty with voiding OBJECTIVE: NAD . MMM, CV: RRR, no MRG Lungs: CTAB Abd: soft, NT, ND , NL BS . bladder is palpated and percussed just below the umbilicus NEuro of LE: Strength 5/5 in hip flexion, knee extension, and ankle dorsiflexion and plantar flexion b/l. 5/5 in knee flexion and extension b/l Nl sensation to light touch on both sides. Knee jerk jerk 2+ b/l , ankle jerk 1 + b/l rectal tone present ASSESSMENT AND PLAN: 68 y/o lady with h/o depression who came in with back pain after a mechanical fall. She was found to have Right L1, L2 transverse process Fx 1- Right L1, L2 transverse process Fx: - Dc morphine, cont oxy , and tylenol. - cont celebrex - TLSO brace ordered - ortho f/u as out pt . repeat xray in 2 weeks - PT eval - will check post void bladder scan 2- Depression: cont Cymbalta DVT PX
--- NOTE | 2018-12-19 12:18 | PN ---
Progress Note (short form) - Note Progress Note: Exam carried out w cyracom phone Pt notes increased pain after she tried to sit up in bed Notes a little tingling in her hands and feet No carolyn numbness No saddle anesthesia PE afvss lying in bed in apparent discomfort tender about lumbar region no pain with hip log roll ehl fhl ta g s 5/5 sensation intact to light touch 2+ dp pulses A/p: transverse process fractures while pt is in significant pain and has some urinary retention, she does not have sensory loss or motor loss in the lower extremities or saddle anesthesia making this less likely to be cauda equina anticipate significant stenosis on MRI based on her CT findings will add muscle relaxer to help her comfort can use brace as tolerated
[2018-12-19] MEDS ORDERED: CYCLOBENZAPRINE HCL 10 MG TABLET (FP) PO ONE (12:20)
[2018-12-20] MEDS: ACETAMINOPHEN 325 MG TABLET (FP) PO SCH ×4 (02:07→18:32)
[2018-12-20] MEDS: HEPARIN NA (PORCINE) 5,000 UNITS/ML 1ML VIAL SQ SCH (06:41)
[2018-12-20] MEDS: CELECOXIB 200 MG CAPSULE PO SCH (09:27)
[2018-12-20] MEDS: DULoxetine HCL 30 MG CAPSULE.DR PO SCH (09:27)
[2018-12-20] MEDS: CALCIUM 500MG/VIT-D 200 UNITS COMBO TABLET (FP) PO SCH ×2 (09:27→21:49)
[2018-12-20] MEDS: CYCLOBENZAPRINE HCL 10 MG TABLET (FP) PO PRN ×2 (09:33→21:49)
--- NOTE | 2018-12-20 11:33 | PN ---
Progress Note (short form) - Note Progress Note: MRI images reviewed. TP fractures appear old. Large disc herniation present. Neurosurgical consult is now in progress, will determine if surgery is necessary.
--- NOTE | 2018-12-20 11:34 | PN ---
Progress Note (short form) - Note Progress Note: Subjective: no fever or chills. No BARROW. has tingling in b/l LE. no weakness. no numbness. cont to have back pain, but better than yesterday Objective: Vital Signs: Last Vital Signs Temp Pulse Resp BP Pulse Ox 97.8 F 70 20 131/82 95 12/20/18 09:21 12/20/18 09:21 12/20/18 09:21 12/20/18 09:21 12/19/18 21:00 Physical Exam: NAD. MMM CV: RRR, no MRG. Lungs: CTAB Abd: soft, NT, ND, NL BS Neuro of LE: Strength 5/5 in hip flexion, knee extension and flexion, and ankle dorsiflexion and plantar flexion b/l. Nl sensation to light touch on both sides. Knee jerk 1+ b/l ASSESSMENT AND PLAN: 68 y/o lady with h/o depression who came in with back pain after a mechanical fall. She was found to have Right L1, L2 transverse process Fx 1- Possible Cuda equina syndrome. - MRI reviewed. large L4-5 disk herniation with compression of the sac. - will start Decadron - Spoke to Dr. Russell, who will review the images and let me know about the plan - cont thompson. - bed rest for now - dc SQ heparin 2- Back pain. - cont morphine, oxy, and tylenol. 2- Depression: cont Cymbalta. DVT PX: hold DVT px for any surgical intervention. Visit type - Emergency Visit Emergency Visit: Yes ED Registration Date: 12/18/18 Care time: The patient presented to the Emergency Department on the above date and was hospitalized for further evaluation of their emergent condition. - New Patient This patient is new to me today: No - Critical Care Critical Care patient: No
[2018-12-20] MEDS ORDERED: DEXAMETHASONE SOD PHOSPHATE 4 MG/1 ML VIAL ONE (11:40)
[2018-12-20] MEDS: oxyCODONE HCL 5 MG TABLET PO PRN ×2 (14:00→21:50)
[2018-12-20] MEDS: DEXAMETHASONE SOD PHOSPHATE 4 MG/1 ML VIAL IVPUSH SCH ×2 (14:02→21:51)
--- NOTE | 2018-12-20 20:30 | CONSULT ---
Consult - text type - Consultation Consultation Note: NEUROSURGERY CONSULTATION Lia Mai is a 68 year old Italian female who has a 25 year history of back pain from "discs" for which she has undergone various treatments. She was in her relative state of good health when she fell from a chair she was standing on while cleaning her house. She did not strike her head and denies losing consciousness. She had immediate increase in her back pain and was unable to arise and ambulate. She crawled to a phone and called a friend to assist her. The patient was brought to the [facility] ER by EMS. The patient describes her pain as severe and when examined, was found to have normal strength, sensation and rectal tone. The patient has not been able to get up or ambulate due to pain. She was found to have 400cc of urine in her bladder on ultrasound and due to potential Urinary retention, MRI Lumbar was ordered. This reveals L1 and L2 transverse process fractures as well a moderate L34 HNP and a large L45 HNP which effaces the lateral recess, however, does not fill the spinal canal. Thoracic MRI was also obtained and was generally unremarkable, however, on the registered radiologic technologist image, there is spondylosis at C56 and C67. Information for this note is from the chart and discussion with patient using the [employer] service. Patient concurs with the information regarding her long history of back pain and recent injury with exacerbation. She has not had any bowel or bladder incontinence and now has a [place] catheter in place. The patient has no numbness in her sacral dermatomes and normal motor and sensory function in her lower extremities. She does complain of paresthesias in her Right arm and leg which is new since her fall. Since the Lumbar discs are large, yet not compellingly clear sources of potential urinary retention and the patient has Right arm and leg symptoms with suggestion of Cervical spondylosis on Thoracic registered radiologic technologist image, I feel that STAT Cervical MRI would be appropriate. If no clear pathology explaining her symptoms is identified, will consider intervention for the Lumbar discs after discussion with patient and family in morning. - GI/DVT prophylaxis - Preop evauation - Cervical MRI without contrast (ordered) - NPO p MN for potential intervention in AM
[2018-12-21] MEDS: ACETAMINOPHEN 325 MG TABLET (FP) PO SCH ×4 (00:47→18:56)
[2018-12-21] MEDS: DEXAMETHASONE SOD PHOSPHATE 4 MG/1 ML VIAL IVPUSH SCH ×4 (02:02→21:53)
[2018-12-21] MEDS: oxyCODONE HCL 5 MG TABLET PO PRN ×2 (05:22→11:10)
[2018-12-21] MEDS: CYCLOBENZAPRINE HCL 10 MG TABLET (FP) PO PRN ×2 (05:22→14:37)
[2018-12-21] MEDS: DULoxetine HCL 30 MG CAPSULE.DR PO SCH (09:18)
[2018-12-21] MEDS: CALCIUM 500MG/VIT-D 200 UNITS COMBO TABLET (FP) PO SCH ×2 (09:18→21:53)
[2018-12-21] MEDS: SODIUM CHLORIDE 1,000 ML IV SCH (11:01)
[2018-12-21] MEDS: LIDOCAINE 5% TOPICAL PATCH TP SCH (11:08)
--- NOTE | 2018-12-21 12:52 | PN ---
Teaching Attending Note Name of Resident: Kanika Crespo ATTENDING PHYSICIAN STATEMENT I saw and evaluated the patient. I reviewed the resident's note and discussed the case with the resident. I agree with the resident's findings and plan as documented. SUBJECTIVE: No fever or chills. has lumbar pain. no radiation to LE . She has tingling in R upper extremity since yesterday. no tingling in LE. No fecal incontinence. OBJECTIVE: NAD. very dry MM CV: RRR, no MRG. Lungs: CTAB Abd: soft, NT, ND, NL BS. bladder is not palpated or percussed . thompson in with dark yellow urine Neuro o Strength 5/5 in hip flexion, knee extension and flexion, and ankle dorsiflexion and plantar flexion b/l. strength 5/5 in shoulder shrug, biceps, triceps, and hand senior operations analyst. Nl sensation to light touch on both sides. Knee jerk 2+ , biceps 2+ , ankle jerk 1+ , BR 1+ b/l ASSESSMENT AND PLAN: 68 y/o lady with h/o depression who came in with back pain after a mechanical fall. She was found to have Right L1, L2 transverse process Fx 1- Acute cervical disk herniation with cord compression: MRI of cervical spine images were reviewed with Dr. Russell. - Plan for discectomy tomorrow am - Cont steroids - Order a hard cervical collar 2- L4-5 Lumbar disc herniation: likley acute o n chronic , with compression on the sac. - cont pain meds - steroids - discectomy of L4-5 is to happen later after cervical discectomy 3- Urianry retention : Likely due to cord compression, could be due to narcotics and immobilization - cont thompson for now 4- Depression: cont Cymbalta. DVT PX: hold chemical DVT px for surgical intervention in am Scds
--- NOTE | 2018-12-21 13:05 | SPA.PREOP ---
- PRE-OP NOTE Dx: cervical spondylosis Planned Procedure: C6 anterior corpectomy and fusion Surgeon: Misael Patrick MD Last Vital Signs Temp Pulse Resp BP Pulse Ox 97.7 F 74 18 129/76 95 12/21/18 10:00 12/21/18 10:00 12/21/18 10:00 12/21/18 10:00 12/20/18 21:00 Lab Results WBC 7.6 K/mm3 (4.0-10.0) 12/18/18 05:40 RBC 4.28 M/mm3 (3.60-5.2) 12/18/18 05:40 Hgb 12.8 GM/dL (10.7-15.3) 12/18/18 05:40 Hct 37.4 % (32.4-45.2) 12/18/18 05:40 MCV 87.5 fl (80-96) 12/18/18 05:40 MCHC 34.3 g/dl (32.0-36.0) 12/18/18 05:40 RDW 12.9 % (11.6-15.6) 12/18/18 05:40 Plt Count 229 K/MM3 (134-434) 12/18/18 05:40 Sodium 140 mmol/L (136-145) 12/18/18 05:40 Potassium 3.9 mmol/L (3.5-5.1) 12/18/18 05:40 Chloride 107 mmol/L (98-107) 12/18/18 05:40 Carbon Dioxide 26 mmol/L (21-32) 12/18/18 05:40 Anion Gap 7 MMOL/L (8-16) L 12/18/18 05:40 BUN 12.4 mg/dL (7-18) 12/18/18 05:40 Creatinine 0.7 mg/dL (0.55-1.3) 12/18/18 05:40 Random Glucose 124 mg/dL (74-106) H 12/18/18 05:40 Calcium 8.4 mg/dL (8.5-10.1) L 12/18/18 05:40 Blood Type A POSITIVE 12/18/18 09:40 Antibody Screen Negative 12/17/18 23:50 INR 1.00 (0.83-1.09) 12/18/18 05:40 - ASSESSMENT/PLAN 1. Make NPO after midnight except po meds 2. GI/DVT PPX 3. Medical optimization / clearance 4. Consent to be obtained by surgeon after risks, benefits and alternatives discussed with patient and or Health Care Proxy.
--- NOTE | 2018-12-21 13:37 | PN ---
Physical Exam: SUBJECTIVE: Patient seen and examined. mod pain in her R lower back. OBJECTIVE: Vital Signs Period Temp Pulse Resp BP Sys/Ram Pulse Ox Last 24 Hr 97.7 F-98.4 F 66-74 18-18 117-129/69-77 95-95 GENERAL: The patient is awake, alert, and fully oriented, in mod distress. HEAD: Normal with no signs of trauma. EYES: PERRL, extraocular movements intact, sclera anicteric, conjunctiva clear. No ptosis. ENT: oropharynx clear without exudates, dry mucous membranes. LUNGS: Breath sounds equal, clear to auscultation bilaterally, no wheezes, no crackles, no accessory muscle use. HEART: Regular rate and rhythm, S1, S2 without murmur, rub or gallop. ABDOMEN: Soft, nontender, nondistended, normoactive bowel sounds, no guarding, no rebound, no hepatosplenomegaly, no masses. EXTREMITIES: 2+ pulses, warm, well-perfused, no edema. NEUROLOGICAL: Cranial nerves II through XII grossly intact. Normal speech, gait not observed. strength 5/5 in all extremities. Sensation intact Active Medications Generic Name Dose Route Start Last Admin Trade Name Freq PRN Reason Stop Dose Admin Acetaminophen 650 mg 12/18/18 13:00 12/21/18 06:02 Tylenol - PO 650 mg Q6H SAMI Administration Calcium Carbonate/Cholecalciferol 1 tab 12/18/18 22:00 12/21/18 09:18 Os-Guillermo 500+D - PO Not Given BID SAMI Cyclobenzaprine HCl 10 mg 12/19/18 12:21 12/21/18 05:22 Flexeril - PO 10 mg Q8H PRN Administration MUSCLE SPASMS Dexamethasone Sodium Phosphate 4 mg 12/20/18 15:00 12/21/18 11:08 Decadron Injection - IVPUSH 4 mg Q6H-IV SAMI Administration Duloxetine HCl 30 mg 12/18/18 10:00 12/21/18 09:18 Cymbalta - PO Not Given DAILY SAMI Sodium Chloride 1,000 mls @ 75 mls/hr 12/21/18 09:45 12/21/18 11:01 Normal Saline - IV 75 mls/hr ASDIR SAMI Administration Lidocaine 1 patch 12/21/18 10:00 12/21/18 11:08 Lidoderm Patch - TP 1 patch DAILY SAMI Administration Miscellaneous 1 each 12/21/18 22:00 Lidoderm Patch Removal MC DAILY@2200 SAMI Oxycodone HCl 5 mg 12/18/18 09:41 12/20/18 06:42 Roxicodone - PO 5 mg Q4H PRN Administration PAIN LEVEL 4 - 6 Oxycodone HCl 10 mg 12/18/18 09:41 12/21/18 11:10 Roxicodone - PO 10 mg Q4H PRN Administration PAIN LEVEL 7 - 10 ASSESSMENT/PLAN: 68 y/o lady with h/o depression who came in with back pain after a mechanical fall. She was found to have Right L1, L2 transverse process Fx Acute cervical disk herniation with cord compression MRI of cervical spine done Per Dr Patrick Plan for C6 anterior corpectomy and fusion tomorrow AM Cont decadron hard cervical collar preop lab GI/DVT PPX L4-5 Lumbar disc herniation MRI large disc herniation with compression on the sac. acute on chronic cont pain meds steroids discectomy of L4-5 is to happen later after cervical discectomy Urinary retention Likely due to cord compression? narcotics and immobilization ? cont thompson for now bladder scan revealed FEN NS @75 Depression cont Cymbalta. DVT PPX hold chemical DVT px for surgical intervention in am Scds Visit type - Emergency Visit Emergency Visit: Yes ED Registration Date: 12/18/18 Care time: The patient presented to the Emergency Department on the above date and was hospitalized for further evaluation of their emergent condition. - New Patient This patient is new to me today: Yes Date on this admission: 12/21/18 - Critical Care Critical Care patient: No - Discharge Referral Referred to [facility] Med P.C.: No ATTENDING PHYSICIAN STATEMENT I saw and evaluated the patient. I reviewed the resident's note and discussed the case with the resident. I agree with the resident's findings and plan as documented. SUBJECTIVE: OBJECTIVE: ASSESSMENT AND PLAN:
--- NOTE | 2018-12-21 14:17 | PN ---
Progress Note (short form) - Note Progress Note: Cervical MRI reveals spondylosis at C56 and C67 with acute disc protrusions in addition to hypertrophic posterior longitudinal ligaments and ligamentum flavum which, when combined with the congenitally narrow spinal canal, results in dorsal and ventral impingement of the CSF spaces and deformation of the Cervical spinal cord. The signal change within the cord suggests bruising which is consistent with the described trauma. Although her Lumbar spine pathology may certainly be painful and would likely benefit from treatment, her Cervical condition appears more concerning. I plan to offer the patient Cervical 6 corpectomy with reconstruction using a PEEK cage and anterior plating on Friday. I plan to discuss this in great detail with the patient and family with an diesel power mechanic.
[2018-12-21] MEDS ORDERED: LIDOCAINE PATCH REMOVAL MC SCH (22:00)
[2018-12-22] MEDS: ACETAMINOPHEN 325 MG TABLET (FP) PO SCH ×3 (01:50→14:14)
[2018-12-22] MEDS: DEXAMETHASONE SOD PHOSPHATE 4 MG/1 ML VIAL IVPUSH SCH ×4 (03:51→21:36)
[2018-12-22] MEDS: SODIUM CHLORIDE 1,000 ML IV SCH ×2 (03:55→10:52)
[2018-12-22 07:46] LABS: INR 0.91 (0.83-1.09); PROTHROMBIN TIME (PATIENT) 10.7 SEC (9.7-13.0)
[2018-12-22 07:49] LABS: ACTIVATED PTT 34.5 SECONDS (25.2-36.5)
[2018-12-22 08:01] LABS: BLOOD UREA NITROGEN 19.9 mg/dL (7-18); CREATININE 0.7 mg/dL (0.55-1.3); HEMATOCRIT 38.8 % (32.4-45.2); HEMOGLOBIN 13.2 GM/dL (10.7-15.3); LYMPH % 9.8 % (8-40); MAGNESIUM 2.3 mg/dL (1.8-2.4); MEAN CELL VOLUME 88.4 fl (80-96); MEAN PLT VOLUME 9.6 fl (7.5-11.1); MONO % 1.9 % (3.8-10.2); NEUT % 88.3 % (42.8-82.8); PHOSPHOROUS 3.4 mg/dL (2.5-4.9); PLATELET COUNT 240 K/MM3 (134-434); POTASSIUM 4.2 mmol/L (3.5-5.1); RBC 4.39 M/mm3 (3.60-5.2); RDW 13.2 % (11.6-15.6); WHITE BLOOD COUNT 6.4 K/mm3 (4.0-10.0)
[2018-12-22] MEDS: CALCIUM 500MG/VIT-D 200 UNITS COMBO TABLET (FP) PO SCH ×2 (09:58→21:30)
[2018-12-22] MEDS: DULoxetine HCL 30 MG CAPSULE.DR PO SCH (09:58)
[2018-12-22] MEDS ORDERED: PANTOPRAZOLE SODIUM 40 MG VIAL IVPUSH SCH (10:00)
[2018-12-22] MEDS: LIDOCAINE 5% TOPICAL PATCH TP SCH (10:58)
[2018-12-22] MEDS ORDERED: GENTAMICIN SO4 80 MG/2 ML VIAL ONE (13:18)
[2018-12-22] MEDS ORDERED: LIDOCAINE 1%-EPI 1:100,000 30 ML MDV IJ ONE (13:18)
[2018-12-22] MEDS ORDERED: THROMBIN (BOVINE) 5,000 UNIT VIAL TP ONE ×2 (13:19→15:02)
[2018-12-22] MEDS ORDERED: MIDAZOLAM HCL 2 MG/2 ML SINGLE DOSE VIAL ONE (14:24)
[2018-12-22] MEDS ORDERED: PROPOFOL 20 ML ONE (14:24)
[2018-12-22] MEDS ORDERED: VANCOMYCIN 1,000 MG VIAL (RESTRICTED TO ID ONLY) IVPB ONE ×2 (14:35→15:02)
[2018-12-22] MEDS ORDERED: ceFAZolin SODIUM 1 GM VIAL IVPB ONE ×2 (14:40→15:02)
[2018-12-22] MEDS ORDERED: GELATIN, ABSORBABLE 100 EACH SPONGE TP ONE ×2 (15:03→15:09)
[2018-12-22] MEDS ORDERED: GENTAMICIN SO4 80 MG/2 ML VIAL IVPB ONE (15:10)
[2018-12-22] MEDS ORDERED: BACITRACIN 50,000 UNITS VIAL TP ONE (15:10)
[2018-12-22] MEDS ORDERED: NEOSTIGMINE METHYLSULFATE 0.5 MG/1 ML - 10 ML MDV ONE (16:00)
[2018-12-22] MEDS ORDERED: ONDANSETRON 4 MG/2 ML VIAL ONE (16:01)
[2018-12-22] MEDS ORDERED: GLYCOPYRROLATE 0.2 MG/1 ML VIAL ONE (16:01)
[2018-12-22] MEDS ORDERED: DEXAMETHASONE SOD PHOSPHATE 4 MG/1 ML VIAL ONE (16:01)
--- NOTE | 2018-12-22 16:25 | PN ---
Physical Exam: SUBJECTIVE: Patient seen and examined. preop for today. continue to endorse pain in back and some numbness in upper R extremity OBJECTIVE: Vital Signs Period Temp Pulse Resp BP Sys/Ram Pulse Ox Last 24 Hr 98.2 F-99 F 59-72 18-18 110-138/63-81 97 GENERAL: The patient is awake, alert, and fully oriented, in mod distress. HEAD: Normal with no signs of trauma. EYES: PERRL, extraocular movements intact, sclera anicteric, conjunctiva clear. No ptosis. ENT: oropharynx clear without exudates, dry mucous membranes. LUNGS: Breath sounds equal, clear to auscultation bilaterally, no wheezes, no crackles, no accessory muscle use. HEART: Regular rate and rhythm, S1, S2 without murmur, rub or gallop. ABDOMEN: Soft, nontender, nondistended, normoactive bowel sounds, no guarding, no rebound, no hepatosplenomegaly, no masses. EXTREMITIES: 2+ pulses, warm, well-perfused, no edema. NEUROLOGICAL: Cranial nerves II through XII grossly intact. Normal speech, gait not observed. strength 5/5 in all extremities. Sensation intact except for upper extremity R numbness Laboratory Results - last 24 hr 12/22/18 12/22/18 12/22/18 06:50 06:50 06:50 WBC 6.4 RBC 4.39 Hgb 13.2 Hct 38.8 MCV 88.4 MCH 30.0 MCHC 34.0 RDW 13.2 Plt Count 240 MPV 9.6 D Absolute Neuts (auto) 5.6 Neutrophils % 88.3 H Lymphocytes % 9.8 Monocytes % 1.9 L Eosinophils % 0.0 D Basophils % 0.0 Nucleated RBC % 0 PT with INR 10.70 INR 0.91 PTT (Actin FS) 34.5 Sodium 141 Potassium 4.2 Chloride 108 H Carbon Dioxide 27 Anion Gap 6 L BUN 19.9 H Creatinine 0.7 Est GFR (CKD-EPI)AfAm 103.18 Est GFR (CKD-EPI)NonAf 89.03 Random Glucose 139 H Calcium 9.0 Phosphorus 3.4 Magnesium 2.3 Blood Type Antibody Screen 12/22/18 06:50 WBC RBC Hgb Hct MCV MCH MCHC RDW Plt Count MPV Absolute Neuts (auto) Neutrophils % Lymphocytes % Monocytes % Eosinophils % Basophils % Nucleated RBC % PT with INR INR PTT (Actin FS) Sodium Potassium Chloride Carbon Dioxide Anion Gap BUN Creatinine Est GFR (CKD-EPI)AfAm Est GFR (CKD-EPI)NonAf Random Glucose Calcium Phosphorus Magnesium Blood Type A POSITIVE Antibody Screen Negative Active Medications Generic Name Dose Route Start Last Admin Trade Name Freq PRN Reason Stop Dose Admin Acetaminophen 650 mg 12/18/18 13:00 12/22/18 14:14 Tylenol - PO Not Given Q6H SAMI Calcium Carbonate/Cholecalciferol 1 tab 12/18/18 22:00 12/22/18 09:58 Os-Guillermo 500+D - PO Not Given BID SAMI Cyclobenzaprine HCl 10 mg 12/19/18 12:21 12/21/18 14:37 Flexeril - PO 10 mg Q8H PRN Administration MUSCLE SPASMS Dexamethasone Sodium Phosphate 4 mg 12/20/18 15:00 12/22/18 09:41 Decadron Injection - IVPUSH 4 mg Q6H-IV SAMI Administration Duloxetine HCl 30 mg 12/18/18 10:00 12/22/18 09:58 Cymbalta - PO Not Given DAILY SAMI Sodium Chloride 1,000 mls @ 75 mls/hr 12/21/18 09:45 12/22/18 10:52 Normal Saline - IV Not Given ASDIR SAMI Lidocaine 1 patch 12/21/18 10:00 12/22/18 10:58 Lidoderm Patch - TP 1 patch DAILY SAMI Administration Miscellaneous 1 each 12/21/18 22:00 12/21/18 21:53 Lidoderm Patch Removal MC 1 each DAILY@2200 SAMI Administration Oxycodone HCl 5 mg 12/18/18 09:41 12/20/18 06:42 Roxicodone - PO 5 mg Q4H PRN Administration PAIN LEVEL 4 - 6 Oxycodone HCl 10 mg 12/18/18 09:41 12/21/18 11:10 Roxicodone - PO 10 mg Q4H PRN Administration PAIN LEVEL 7 - 10 Pantoprazole Sodium 40 mg 12/22/18 10:00 12/22/18 10:52 Protonix Iv IVPUSH 40 mg DAILY SMAI Administration ASSESSMENT/PLAN: 68 y/o lady with h/o depression who came in with back pain after a mechanical fall. She was found to have Right L1, L2 transverse process Fx Acute cervical disk herniation with cord compression MRI of cervical spine done Pt went for C6 anterior corpectomy and fusion today Cont decadron hard cervical collar preop lab done on GI/DVT PPX L4-5 Lumbar disc herniation MRI large disc herniation with compression on the sac. acute on chronic cont pain meds steroids discectomy of L4-5 is to happen later after cervical discectomy Urinary retention Likely due to cord compression? narcotics and immobilization ? cont thompson for now output monitor will follow after cervical decompression Depression cont Cymbalta. DVT PPX hold chemical DVT px for surgical intervention in am Scds Visit type - Emergency Visit Emergency Visit: Yes ED Registration Date: 12/18/18 Care time: The patient presented to the Emergency Department on the above date and was hospitalized for further evaluation of their emergent condition. - New Patient This patient is new to me today: No - Critical Care Critical Care patient: No - Discharge Referral Referred to [facility] Med P.C.: No ATTENDING PHYSICIAN STATEMENT I saw and evaluated the patient. I reviewed the resident's note and discussed the case with the resident. I agree with the resident's findings and plan as documented. SUBJECTIVE: OBJECTIVE: ASSESSMENT AND PLAN:
--- NOTE | 2018-12-22 16:31 | OP ---
Operative Note - Note: Operative Date: 12/22/18 Pre-Operative Diagnosis: Spondylosis at C56 and C67 with acute disc protrusions Operation: C6 corpectomy, PEEK cage and anterior plating Post-Operative Diagnosis: Same as Pre-op Surgeon: Misael Patrick Information Technology Account Manager: Josh Gregg Anesthesiologist/SOCIAL ORGANIZATION PROFESSOR: Yahaira Barakat Anesthesia: General Estimated Blood Loss (mls): 50 Drains & Tubes with Location: NAVYA Drains, Volume Out (mls): 100 (Cloudy w/ sediment) Fluid Volume Replaced (mls): 1,300
[2018-12-22] MEDS ORDERED: ACETAMINOPHEN INJECTION 100 ML IVPB ONE (16:39)
[2018-12-22] MEDS ORDERED: CYCLOBENZAPRINE HCL 10 MG TABLET (FP) PO PRN (16:56)
[2018-12-22] MEDS: ACETAMINOPHEN 1000 MG/100 ML VIAL (NON FORMULARY) IVPB SCH ×2 (17:00→23:29)
[2018-12-22] MEDS ORDERED: HYDROmorphone HCl 2 MG/ML VIAL ONE (17:07)
[2018-12-22] MEDS ORDERED: PROMETHAZINE HCL 25 MG/1 ML VIAL IVPUSH PRN (17:08)
[2018-12-22] MEDS ORDERED: ONDANSETRON 4 MG/2 ML VIAL IVPUSH PRN (17:08)
[2018-12-22] MEDS ORDERED: HYDROmorphone HCL CARPU-JECT 2 MG/1 ML DISP.SYRIN IVPUSH PRN (17:13)
[2018-12-22] MEDS ORDERED: CEFAZOLIN 1 GM in DEXTROSE 5%-WATER - 50 ML IVPB SCH (18:00)
[2018-12-22] MEDS ORDERED: ACETAMINOPHEN 325 MG TABLET (FP) PO SCH (19:00)
[2018-12-22] MEDS ORDERED: HYDROmorphone HCl 2 MG/ML VIAL IVPUSH PRN (19:28)
[2018-12-22] MEDS: LACTATED RINGERS SOLUTION 1,000 ML/1,000 ML INFUS.BAG IV SCH (19:38)
--- NOTE | 2018-12-22 20:50 | PN ---
Teaching Attending Note Name of Resident: Kanika Crespo ATTENDING PHYSICIAN STATEMENT I saw and evaluated the patient. I reviewed the resident's note and discussed the case with the resident. I agree with the resident's findings and plan as documented. SUBJECTIVE: Patient is comfortable with NAD. Patient is feeling better. OBJECTIVE: Vital Signs Temperature 98 F 12/22/18 19:00 Pulse Rate 76 12/22/18 19:00 Respiratory Rate 18 12/22/18 19:00 Blood Pressure 135/78 12/22/18 19:00 O2 Sat by Pulse Oximetry (%) 98 12/22/18 19:00 GENERAL: The patient is awake, alert, and fully oriented, in no acute distress. HEAD: Normal with no signs of trauma. EYES: PERRL, extraocular movements intact, sclera anicteric, conjunctiva clear. ENT: Ears normal, oropharynx clear without exudates, moist mucous membranes. NECK: Trachea midline, full range of motion, supple. LUNGS: Breath sounds equal, clear to auscultation bilaterally, no wheezes, no crackles, no accessory muscle use. HEART: Regular rate and rhythm, S1, S2 without murmur, rub or gallop. ABDOMEN: Soft, nontender, nondistended, normoactive bowel sounds, no guarding, no rebound, no hepatosplenomegaly, no masses. EXTREMITIES: 2+ pulses, warm, well-perfused, no edema. NEUROLOGICAL: Cranial nerves II through XII grossly intact. Normal speech, gait not observed. PSYCH: Normal mood, normal affect. SKIN: Warm, dry, normal turgor, no rashes or lesions noted CBCD WBC 6.4 K/mm3 (4.0-10.0) 12/22/18 06:50 RBC 4.39 M/mm3 (3.60-5.2) 12/22/18 06:50 Hgb 13.2 GM/dL (10.7-15.3) 12/22/18 06:50 Hct 38.8 % (32.4-45.2) 12/22/18 06:50 MCV 88.4 fl (80-96) 12/22/18 06:50 MCHC 34.0 g/dl (32.0-36.0) 12/22/18 06:50 RDW 13.2 % (11.6-15.6) 12/22/18 06:50 Plt Count 240 K/MM3 (134-434) 12/22/18 06:50 MPV 9.6 fl (7.5-11.1) D 12/22/18 06:50 CMP Sodium 141 mmol/L (136-145) 12/22/18 06:50 Potassium 4.2 mmol/L (3.5-5.1) 12/22/18 06:50 Chloride 108 mmol/L (98-107) H 12/22/18 06:50 Carbon Dioxide 27 mmol/L (21-32) 12/22/18 06:50 Anion Gap 6 MMOL/L (8-16) L 12/22/18 06:50 BUN 19.9 mg/dL (7-18) H 12/22/18 06:50 Creatinine 0.7 mg/dL (0.55-1.3) 12/22/18 06:50 Random Glucose 139 mg/dL (74-106) H 12/22/18 06:50 Calcium 9.0 mg/dL (8.5-10.1) 12/22/18 06:50 Total Bilirubin 0.5 mg/dL (0.2-1) 12/18/18 05:40 AST 19 U/L (15-37) 12/18/18 05:40 ALT 26 U/L (13-61) 12/18/18 05:40 Alkaline Phosphatase 72 U/L (45-117) 12/18/18 05:40 Total Protein 6.7 g/dl (6.4-8.2) 12/18/18 05:40 Albumin 3.6 g/dl (3.4-5.0) 12/18/18 05:40 Current Medications Generic Name Dose Route Start Last Admin Trade Name Freq PRN Reason Stop Dose Admin Acetaminophen 1,000 mg 12/22/18 23:00 Ofirmev Injection - IVPB 12/23/18 17:01 Q6H SAMI Calcium Carbonate/Cholecalciferol 1 tab 12/22/18 22:00 Os-Guillermo 500+D - PO BID SAMI Cyclobenzaprine HCl 10 mg 12/22/18 16:56 Flexeril - PO Q8H PRN MUSCLE SPASMS Dexamethasone Sodium Phosphate 4 mg 12/22/18 21:00 Decadron Injection - IVPUSH Q6H-IV SAMI Docusate Sodium 100 mg 12/22/18 22:00 Colace - PO TID [facility] Duloxetine HCl 30 mg 12/23/18 10:00 Cymbalta - PO DAILY [facility] Folic Acid 1 mg 12/23/18 10:00 Folic Acid - PO DAILY [facility] Hydromorphone HCl 0.5 mg 12/22/18 19:28 Dilaudid Vial - IVPUSH Q4H PRN PAIN LEVEL 6-10 Lactated Ringer's 1,000 ml in 1,000 mls @ 125 mls/hr 12/22/18 16:45 12/22/18 19:38 Lactated Ringers Solution IV Not Given ASDIR [facility] Cefazolin Sodium 1 gm/ 50 mls @ 100 mls/hr 12/22/18 23:00 Dextrose IVPB Q8H [facility] Lidocaine 1 patch 12/23/18 10:00 Lidoderm Patch - TP DAILY [facility] Miscellaneous 1 each 12/22/18 22:00 Lidoderm Patch Removal MC DAILY@2200 [facility] Ondansetron HCl 4 mg 12/22/18 17:08 Zofran Injection IVPUSH Q6H PRN NAUSEA AND/OR VOMITING Oxycodone HCl 5 mg 12/22/18 16:56 Roxicodone - PO Q4H PRN PAIN LEVEL 4 - 6 Oxycodone HCl 10 mg 12/22/18 16:56 Roxicodone - PO Q4H PRN PAIN LEVEL 7 - 10 Pantoprazole Sodium 40 mg 12/23/18 10:00 Protonix Iv IVPUSH DAILY [facility] Promethazine HCl 12.5 mg 12/22/18 17:08 Phenergan Injection - IVPUSH Q6H PRN NAUSEA-FOR RESCUE AFTER 15 MIN Home Medications Medication Instructions Recorded Ascorbate Calcium [Vitamin C] 500 mg PO DAILY 12/18/18 Duloxetine HCl [Cymbalta -] 30 mg PO DAILY 12/18/18 Ergocalciferol (Vitamin D2) 50,000 unit PO WEEKLY 12/18/18 [Vitamin D2] Vitamin B Complex [B Complex] 1 tablet PO DAILY 12/18/18 ASSESSMENT AND PLAN: 68 y/o lady with h/o depression who came in with back pain after a mechanical fall. She was found to have Right L1, L2 transverse process Fx # POD 0 s/p C6 corpectomy due to Spondylosis at C56 and C67 with acute disc protrusions # L4-5 Lumbar disc herniation: likely acute on chronic , with compression on the sac, on decadron continue # Urinary retention : could be due to narcotics and immobilization # Depression: cont Cymbalta. DVT PX: Scds ; hold chemical DVT px until ok with Neurosx
[2018-12-22] MEDS: DOCUSATE SODIUM 100 MG CAPSULE (FP) PO SCH (21:29)
[2018-12-22] MEDS: LIDOCAINE PATCH REMOVAL MC SCH (21:40)
[2018-12-22] MEDS ORDERED: ceFAZolin SODIUM 1 GM VIAL ONE (21:58)
[2018-12-22] MEDS ORDERED: DEXTROSE 5%-WATER - 50 ML IVPB ONE (21:58)
[2018-12-22] MEDS ORDERED: LIDOCAINE PATCH REMOVAL MC SCH (22:00)
[2018-12-22] MEDS: CEFAZOLIN 1 GM in DEXTROSE 5%-WATER - 50 ML IVPB SCH (22:26)
[2018-12-23] MEDS: LACTATED RINGERS SOLUTION 1,000 ML/1,000 ML INFUS.BAG IV SCH ×4 (00:26→18:24)
[2018-12-23] MEDS: DEXAMETHASONE SOD PHOSPHATE 4 MG/1 ML VIAL IVPUSH SCH ×4 (03:08→22:17)
[2018-12-23] MEDS: ACETAMINOPHEN 1000 MG/100 ML VIAL (NON FORMULARY) IVPB SCH ×3 (04:43→17:21)
[2018-12-23] MEDS: DOCUSATE SODIUM 100 MG CAPSULE (FP) PO SCH ×4 (06:37→22:16)
[2018-12-23] MEDS ORDERED: ceFAZolin SODIUM 1 GM VIAL ONE ×3 (07:33→22:20)
[2018-12-23] MEDS ORDERED: DEXTROSE 5%-WATER - 50 ML IVPB ONE ×3 (07:33→22:21)
[2018-12-23] MEDS: CEFAZOLIN 1 GM in DEXTROSE 5%-WATER - 50 ML IVPB SCH ×3 (07:35→22:22)
[2018-12-23 08:15] LABS: BASO % 0.2 % (0-2.0); HEMOGLOBIN 11.8 GM/dL (10.7-15.3); MCH 29.9 pg (25.7-33.7); MCHC 33.6 g/dl (32.0-36.0); MEAN CELL VOLUME 88.9 fl (80-96); MEAN PLT VOLUME 9.7 fl (7.5-11.1); MONO % 2.6 % (3.8-10.2); NEUT % 92.2 % (42.8-82.8); PLATELET COUNT 197 K/MM3 (134-434); RBC 3.94 M/mm3 (3.60-5.2); RDW 13.5 % (11.6-15.6); WHITE BLOOD COUNT 9.2 K/mm3 (4.0-10.0)
--- NOTE | 2018-12-23 08:26 | PN ---
Progress Note (short form) - Note Progress Note: POD #1 ACDF patient seen and examined at bedside c/o Left index and long finger pain. The patient states she did not have this pain prior to the surgery. The pain is non-radicular and focal over the left index and long fingers, sharp in nature and worse with any pressure or touching of the fingers. She is moving her fingers okay.She denies any CP, SOB, N/V/ fever or chills. Vital Signs Temp 98 F 12/23/18 06:00 Pulse 59 L 12/23/18 06:00 Resp 20 12/23/18 06:00 BP 121/72 12/23/18 06:00 Pulse Ox 98 12/22/18 21:00 Intake & Output 12/22/18 12/22/18 12/23/18 11:59 23:59 11:59 Intake Total 600 1800 1350 Output Total 350 580 580 Balance 250 1220 770 Weight 136 lb 12.8 oz Intake: IV 600 1800 1100 LACTATED RINGERS SOLUTION 1100 1,000 ml In 1,000 ml @ 125 mls/hr IV ASDIR SAMI Rx#:[id number] saline lock 600 IVPB 250 Output: Drainage 30 30 Neck 30 30 Urine 350 500 550 [place] 350 150 550 Estimated Blood Loss 50 Other: Voiding Method Indwelling Catheter Indwelling Catheter Bowel Movement No Weight Measurement Method Standing Scale CBC, BMP 12/23/18 06:50 12/23/18 06:50 PE: A&Ox3, NAD Unlabored resp on RA anterior neck, incision c/d/i with drain in good position and draining SS fluid. drain removed with tip fully intact. Surrounding tissue is intact with no tracking erythema or edema, trachea midline. 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 Hand and fingers well perfused. Pain with light touch to all surfaces of left index and long fingers. Full ROM of left index and long fingers although some limited flexion 2/2 pain blocking. No pain with movement of left arm at shoulder, elbow or wrist. B/L LE compartments soft, supple and non-tender with +2DP pulses. Problem List - Problems (1) S/P cervical spinal fusion Assessment/Plan: Patient POD #1 ACDF with likely nerve apraxia at left index and long fingers. I explained to the patient that this was likely from nerve irritation and should improve over time. -Lyrica added for neuropathic pain -Continue DVT prophylaxis with sq heparin, teds and scds -OOB as tolerated and up to chair for meals -PT/OT -C-collar 23 hrs/day -d/c planning Evaluation and plan discussed with Dr Patrick Code(s): Z98.1 - ARTHRODESIS STATUS
[2018-12-23 08:29] LABS: BLOOD UREA NITROGEN 16.6 mg/dL (7-18); CALCIUM 8.4 mg/dL (8.5-10.1); CREATININE 0.6 mg/dL (0.55-1.3); POTASSIUM 4.1 mmol/L (3.5-5.1)
[2018-12-23] MEDS ORDERED: PT OWN MED DRAWER 7, Y5N ONE (09:24)
[2018-12-23] MEDS: DULoxetine HCL 30 MG CAPSULE.DR PO SCH (09:27)
[2018-12-23] MEDS: FOLIC ACID 1 MG TABLET (FP) PO SCH (09:28)
[2018-12-23] MEDS: CALCIUM 500MG/VIT-D 200 UNITS COMBO TABLET (FP) PO SCH ×2 (09:28→22:14)
[2018-12-23] MEDS: PANTOPRAZOLE SODIUM 40 MG VIAL IVPUSH SCH (09:29)
[2018-12-23] MEDS: LIDOCAINE 5% TOPICAL PATCH TP SCH (09:31)
[2018-12-23] MEDS ORDERED: HYDROmorphone HCl 2 MG/ML VIAL IVPB ONE (09:54)
--- NOTE | 2018-12-23 09:54 | PN ---
Progress Note, Physician Chief Complaint: s/p cervical corpectomy post op day one History of Present Illness: under general anesthesia - Current Medication List Current Medications: Active Medications Acetaminophen (Ofirmev Injection -) 1,000 mg IVPB Q6H [facility] Stop: 12/23/18 17:01 Last Admin: 12/23/18 04:43 Dose: 1,000 mg Calcium Carbonate/Cholecalciferol (Os-Guillermo 500+D -) 1 tab PO BID [facility] Last Admin: 12/23/18 09:28 Dose: 1 tab Cyclobenzaprine HCl (Flexeril -) 10 mg PO Q8H PRN PRN Reason: MUSCLE SPASMS Dexamethasone Sodium Phosphate (Decadron Injection -) 4 mg IVPUSH Q6H-IV [facility] Last Admin: 12/23/18 09:29 Dose: 4 mg Docusate Sodium (Colace -) 100 mg PO TID [facility] Last Admin: 12/23/18 06:37 Dose: Not Given Duloxetine HCl (Cymbalta -) 30 mg PO DAILY [facility] Last Admin: 12/23/18 09:27 Dose: 30 mg Folic Acid (Folic Acid -) 1 mg PO DAILY [facility] Last Admin: 12/23/18 09:28 Dose: 1 mg Hydromorphone HCl (Dilaudid Vial -) 0.5 mg IVPUSH Q4H PRN PRN Reason: PAIN LEVEL 6-10 Last Admin: 12/23/18 09:08 Dose: 0.5 mg Lactated Ringer's (Lactated Ringers Solution) 1,000 ml in 1,000 mls @ 125 mls/ hr IV ASDIR [facility] Last Admin: 12/23/18 09:32 Dose: 125 mls/hr Cefazolin Sodium 1 gm/ (Dextrose) 50 mls @ 100 mls/hr IVPB Q8H [facility] Last Admin: 12/23/18 07:35 Dose: 100 mls/hr Lidocaine (Lidoderm Patch -) 1 patch TP DAILY [facility] Last Admin: 12/23/18 09:31 Dose: 1 patch Miscellaneous (Lidoderm Patch Removal) 1 each MC DAILY@2200 [facility] Last Admin: 12/22/18 21:40 Dose: 1 each Ondansetron HCl (Zofran Injection) 4 mg IVPUSH Q6H PRN PRN Reason: NAUSEA AND/OR VOMITING Oxycodone HCl (Roxicodone -) 5 mg PO Q4H PRN PRN Reason: PAIN LEVEL 4 - 6 Oxycodone HCl (Roxicodone -) 10 mg PO Q4H PRN PRN Reason: PAIN LEVEL 7 - 10 Pantoprazole Sodium (Protonix Iv) 40 mg IVPUSH DAILY SAMI Last Admin: 12/23/18 09:29 Dose: 40 mg Promethazine HCl (Phenergan Injection -) 12.5 mg IVPUSH Q6H PRN PRN Reason: NAUSEA-FOR RESCUE AFTER 15 MIN - Objective Vital Signs: Vital Signs Temperature 98 F 12/23/18 06:00 Pulse Rate 59 L 12/23/18 06:00 Respiratory Rate 20 12/23/18 06:00 Blood Pressure 121/72 12/23/18 06:00 O2 Sat by Pulse Oximetry (%) 98 12/22/18 21:00 Constitutional: Yes: Well Nourished, Mild Distress Cardiovascular: Yes: WNL Respiratory: Yes: WNL Gastrointestinal: Yes: WNL Labs: CBC, BMP 12/23/18 06:50 12/23/18 06:50 INR, PTT INR 0.91 (0.83-1.09) 12/22/18 06:50 Assessment/Plan Complaining of pain in neck, back and left hand. Not able to swallow pills, will order IV dilaudid x one dose. No other complications of anesthetic. dept of anesthesia will signoff care at this time
[2018-12-23 12:34] LABS: ANISOCYTOSIS 0; MACROCYTOSIS 0; PLATELET ESTIMATE NORMAL
[2018-12-23] MEDS ORDERED: BENZOCAINE/MENTH/CETYLPYRD CL 1 EACH LOZENGE MM PRN (13:42)
--- NOTE | 2018-12-23 15:45 | PN ---
Physical Exam: SUBJECTIVE: Patient seen and examined. Pt complains of tingling of R arm, heighten pain sensation in 2&3rd fingers b/l 12/24 OBJECTIVE: Vital Signs Period Temp Pulse Resp BP Sys/Ram Pulse Ox Last 24 Hr 98 F-99.3 F 59-80 14-20 121-161/72-89 94-100 GENERAL: The patient is awake, alert, and fully oriented, in mod distress. HEAD: Normal with no signs of trauma. EYES: PERRL, extraocular movements intact, sclera anicteric, conjunctiva clear. No ptosis. ENT: oropharynx clear without exudates, dry mucous membranes. LUNGS: Breath sounds equal, clear to auscultation bilaterally, no wheezes, no crackles, no accessory muscle use. HEART: Regular rate and rhythm, S1, S2 without murmur, rub or gallop. ABDOMEN: Soft, nontender, nondistended, normoactive bowel sounds, no guarding, no rebound, no hepatosplenomegaly, no masses. EXTREMITIES: 2+ pulses, warm, well-perfused, no edema. NEUROLOGICAL: Cranial nerves II through XII grossly intact. Normal speech, gait not observed. strength 5/5 in all extremities. Sensation intact except for upper extremities R numbness and heighten pain sensation in 2&3rd fingers b/l 12/24 Laboratory Results - last 24 hr 12/23/18 12/23/18 06:50 06:50 WBC 9.2 RBC 3.94 Hgb 11.8 Hct 35.0 MCV 88.9 MCH 29.9 MCHC 33.6 RDW 13.5 Plt Count 197 MPV 9.7 Absolute Neuts (auto) 8.5 H Neutrophils % 92.2 H Neutrophils % (Manual) 93.1 H Band Neutrophils % 1.0 Lymphocytes % 5.0 L D Lymphocytes % (Manual) 3.9 L Monocytes % 2.6 L Monocytes % (Manual) 2 L Eosinophils % 0.0 Eosinophils % (Manual) 0.0 Basophils % 0.2 D Basophils % (Manual) 0.0 Myelocytes % (Man) 0 Promyelocytes % (Man) 0 Blast Cells % (Manual) 0 Nucleated RBC % 0 Metamyelocytes 0 Hypochromia 0 Platelet Estimate Normal Polychromasia 0 Poikilocytosis 0 Anisocytosis 0 Microcytosis 0 Macrocytosis 0 Sodium 143 Potassium 4.1 Chloride 109 H Carbon Dioxide 29 Anion Gap 6 L BUN 16.6 Creatinine 0.6 Est GFR (CKD-EPI)AfAm 108.55 Est GFR (CKD-EPI)NonAf 93.66 Random Glucose 131 H Calcium 8.4 L Active Medications Generic Name Dose Route Start Last Admin Trade Name Freq PRN Reason Stop Dose Admin Acetaminophen 1,000 mg 12/22/18 23:00 12/23/18 11:28 Ofirmev Injection - IVPB 12/23/18 17:01 1,000 mg Q6H SAMI Administration Benzocaine/Menthol 1 each 12/23/18 13:42 Cepacol Lozenge - MM PRN PRN SORE THROAT Calcium Carbonate/Cholecalciferol 1 tab 12/22/18 22:00 12/23/18 09:28 Os-Guillermo 500+D - PO 1 tab BID SAMI Administration Cyclobenzaprine HCl 10 mg 12/22/18 16:56 Flexeril - PO Q8H PRN MUSCLE SPASMS Dexamethasone Sodium Phosphate 4 mg 12/22/18 21:00 12/23/18 14:34 Decadron Injection - IVPUSH 4 mg Q6H-IV SAMI Administration Docusate Sodium 100 mg 12/22/18 22:00 12/23/18 14:32 Colace - PO 100 mg TID SAMI Administration Docusate Sodium 300 mg 12/23/18 22:00 Colace - PO HS SAMI Duloxetine HCl 30 mg 12/23/18 10:00 12/23/18 09:27 Cymbalta - PO 30 mg DAILY SAMI Administration Folic Acid 1 mg 12/23/18 10:00 12/23/18 09:28 Folic Acid - PO 1 mg DAILY SAMI Administration Lactated Ringer's 1,000 ml in 1,000 mls @ 125 mls/hr 12/22/18 16:45 12/23/18 09:32 Lactated Ringers Solution IV 125 mls/hr ASDIR SAMI Administration Cefazolin Sodium 1 gm/ 50 mls @ 100 mls/hr 12/22/18 23:00 12/23/18 14:33 Dextrose IVPB 100 mls/hr Q8H SAMI Administration Lidocaine 1 patch 12/23/18 10:00 12/23/18 09:31 Lidoderm Patch - TP 1 patch DAILY SAMI Administration Miscellaneous 1 each 12/22/18 22:00 12/22/18 21:40 Lidoderm Patch Removal MC 1 each DAILY@2200 SAMI Administration Ondansetron HCl 4 mg 12/22/18 17:08 Zofran Injection IVPUSH Q6H PRN NAUSEA AND/OR VOMITING Oxycodone HCl 5 mg 12/22/18 16:56 Roxicodone - PO Q4H PRN PAIN LEVEL 4 - 6 Oxycodone HCl 10 mg 12/22/18 16:56 Roxicodone - PO Q4H PRN PAIN LEVEL 7 - 10 Pantoprazole Sodium 40 mg 12/23/18 10:00 12/23/18 09:29 Protonix Iv IVPUSH 40 mg DAILY SAMI Administration Pregabalin 100 mg 12/23/18 22:00 Lyrica - PO BID SAMI Promethazine HCl 12.5 mg 12/22/18 17:08 Phenergan Injection - IVPUSH Q6H PRN NAUSEA-FOR RESCUE AFTER 15 MIN ASSESSMENT/PLAN: 68 y/o lady with h/o depression who came in with back pain after a mechanical fall. She was found to have Right L1, L2 transverse process Fx Acute cervical disk herniation with cord compression POD #1 per Neurosurg,heighten pain sensation in 2&3rd fingers b/l likely from nerve irritation and should improve over time. Continue DVT prophylaxis currently on SCD OOB as tolerated and up to chair for meals PT/OT C-collar 23 hrs/day Cont decadron pain regimen on lido patch, oxy, one dose of IV dilaudid by anesthesia, benzocaine for sore throat post op L4-5 Lumbar disc herniation MRI large disc herniation with compression on the sac. acute on chronic cont pain meds steroids discectomy of L4-5 is to happen later after cervical discectomy Urinary retention resolved since surgery Likely due to cord compression cont thompson for now output monitor Depression cont Cymbalta. DVT PPX Scds Visit type - Emergency Visit Emergency Visit: Yes ED Registration Date: 12/18/18 Care time: The patient presented to the Emergency Department on the above date and was hospitalized for further evaluation of their emergent condition. - New Patient This patient is new to me today: No - Critical Care Critical Care patient: No - Discharge Referral Referred to [facility] Med P.C.: No ATTENDING PHYSICIAN STATEMENT I saw and evaluated the patient. I reviewed the resident's note and discussed the case with the resident. I agree with the resident's findings and plan as documented. SUBJECTIVE: OBJECTIVE: ASSESSMENT AND PLAN:
--- NOTE | 2018-12-23 18:39 | PN ---
Teaching Attending Note Name of Resident: Kanika Crespo ATTENDING PHYSICIAN STATEMENT I saw and evaluated the patient. I reviewed the resident's note and discussed the case with the resident. I agree with the resident's findings and plan as documented. SUBJECTIVE: Patient is comfortable with no acute distress. feeling better . OBJECTIVE: Vital Signs Temperature 97.5 F L 12/23/18 16:30 Pulse Rate 61 12/23/18 16:30 Respiratory Rate 20 12/23/18 16:30 Blood Pressure 131/95 12/23/18 16:30 O2 Sat by Pulse Oximetry (%) 98 12/22/18 21:00 GENERAL: The patient is awake, alert, and fully oriented, in no acute distress. HEAD: Normal with no signs of trauma. EYES: PERRL, extraocular movements intact, sclera anicteric, conjunctiva clear. ENT: Ears normal, oropharynx clear without exudates, moist mucous membranes. NECK: Trachea midline, full range of motion, supple. LUNGS: Breath sounds equal, clear to auscultation bilaterally, no wheezes, no crackles, no accessory muscle use. HEART: Regular rate and rhythm, S1, S2 without murmur, rub or gallop. ABDOMEN: Soft, nontender, nondistended, normoactive bowel sounds, no guarding, no rebound, no hepatosplenomegaly, no masses. EXTREMITIES: 2+ pulses, warm, well-perfused, Pt speaking in full sentences. L 4/5 wardrobe coordinator strength, 5/5 wardrobe coordinator on right. Hand and fingers well perfused. L index finger edematous . ROM intact in L index finger, limited flexion and pain. NEUROLOGICAL: Cranial nerves II through XII grossly intact. Normal speech, gait not observed.Anterior neck dressing PSYCH: Normal mood, normal affect. SKIN: Warm, dry, normal turgor, no rashes or lesions noted CBCD WBC 9.2 K/mm3 (4.0-10.0) 12/23/18 06:50 RBC 3.94 M/mm3 (3.60-5.2) 12/23/18 06:50 Hgb 11.8 GM/dL (10.7-15.3) 12/23/18 06:50 Hct 35.0 % (32.4-45.2) 12/23/18 06:50 MCV 88.9 fl (80-96) 12/23/18 06:50 MCHC 33.6 g/dl (32.0-36.0) 12/23/18 06:50 RDW 13.5 % (11.6-15.6) 12/23/18 06:50 Plt Count 197 K/MM3 (134-434) 12/23/18 06:50 MPV 9.7 fl (7.5-11.1) 12/23/18 06:50 CMP Sodium 143 mmol/L (136-145) 12/23/18 06:50 Potassium 4.1 mmol/L (3.5-5.1) 12/23/18 06:50 Chloride 109 mmol/L (98-107) H 12/23/18 06:50 Carbon Dioxide 29 mmol/L (21-32) 12/23/18 06:50 Anion Gap 6 MMOL/L (8-16) L 12/23/18 06:50 BUN 16.6 mg/dL (7-18) 12/23/18 06:50 Creatinine 0.6 mg/dL (0.55-1.3) 12/23/18 06:50 Random Glucose 131 mg/dL (74-106) H 12/23/18 06:50 Calcium 8.4 mg/dL (8.5-10.1) L 12/23/18 06:50 Total Bilirubin 0.5 mg/dL (0.2-1) 12/18/18 05:40 AST 19 U/L (15-37) 12/18/18 05:40 ALT 26 U/L (13-61) 12/18/18 05:40 Alkaline Phosphatase 72 U/L (45-117) 12/18/18 05:40 Total Protein 6.7 g/dl (6.4-8.2) 12/18/18 05:40 Albumin 3.6 g/dl (3.4-5.0) 12/18/18 05:40 Current Medications Generic Name Dose Route Start Last Admin Trade Name Freq PRN Reason Stop Dose Admin Benzocaine/Menthol 1 each 12/23/18 13:42 Cepacol Lozenge - MM PRN PRN SORE THROAT Calcium Carbonate/Cholecalciferol 1 tab 12/22/18 22:00 12/23/18 09:28 Os-Guillermo 500+D - PO 1 tab BID SAMI Administration Cyclobenzaprine HCl 10 mg 12/22/18 16:56 Flexeril - PO Q8H PRN MUSCLE SPASMS Dexamethasone Sodium Phosphate 4 mg 12/22/18 21:00 12/23/18 14:34 Decadron Injection - IVPUSH 4 mg Q6H-IV SAMI Administration Docusate Sodium 100 mg 12/22/18 22:00 12/23/18 14:32 Colace - PO 100 mg TID SAMI Administration Docusate Sodium 300 mg 12/23/18 22:00 Colace - PO HS SAMI Duloxetine HCl 30 mg 12/23/18 10:00 12/23/18 09:27 Cymbalta - PO 30 mg DAILY SAMI Administration Folic Acid 1 mg 12/23/18 10:00 12/23/18 09:28 Folic Acid - PO 1 mg DAILY SAMI Administration Lactated Ringer's 1,000 ml in 1,000 mls @ 125 mls/hr 12/22/18 16:45 12/23/18 18:24 Lactated Ringers Solution IV Not Given ASDIR SAMI Cefazolin Sodium 1 gm/ 50 mls @ 100 mls/hr 12/22/18 23:00 12/23/18 14:33 Dextrose IVPB 100 mls/hr Q8H SAMI Administration Lidocaine 1 patch 12/23/18 10:00 12/23/18 09:31 Lidoderm Patch - TP 1 patch DAILY SAMI Administration Miscellaneous 1 each 12/22/18 22:00 12/22/18 21:40 Lidoderm Patch Removal MC 1 each DAILY@2200 SAMI Administration Ondansetron HCl 4 mg 12/22/18 17:08 Zofran Injection IVPUSH Q6H PRN NAUSEA AND/OR VOMITING Oxycodone HCl 5 mg 12/22/18 16:56 Roxicodone - PO Q4H PRN PAIN LEVEL 4 - 6 Oxycodone HCl 10 mg 12/22/18 16:56 Roxicodone - PO Q4H PRN PAIN LEVEL 7 - 10 Pantoprazole Sodium 40 mg 12/23/18 10:00 12/23/18 09:29 Protonix Iv IVPUSH 40 mg DAILY SAMI Administration Pregabalin 100 mg 12/23/18 22:00 Lyrica - PO BID SAMI Promethazine HCl 12.5 mg 12/22/18 17:08 Phenergan Injection - IVPUSH Q6H PRN NAUSEA-FOR RESCUE AFTER 15 MIN Home Medications Medication Instructions Recorded Ascorbate Calcium [Vitamin C] 500 mg PO DAILY 12/18/18 Duloxetine HCl [Cymbalta -] 30 mg PO DAILY 12/18/18 Ergocalciferol (Vitamin D2) 50,000 unit PO WEEKLY 12/18/18 [Vitamin D2] Vitamin B Complex [B Complex] 1 tablet PO DAILY 12/18/18 Urine Test Results Urine Color Yellow 12/18/18 00:32 Urine Appearance Clear 12/18/18 00:32 Urine pH >= 9.0 (5.0-8.0) H 12/18/18 00:32 Ur Specific [place] 1.007 (1.010-1.035) L 12/18/18 00:32 Urine Protein Negative (NEGATIVE) 12/18/18 00:32 Urine Glucose (UA) Negative (NEGATIVE) 12/18/18 00:32 Urine Ketones Negative (NEGATIVE) 12/18/18 00:32 Urine Blood Negative (NEGATIVE) 12/18/18 00:32 Urine Nitrite Negative (NEGATIVE) 12/18/18 00:32 Urine Bilirubin Negative (NEGATIVE) 12/18/18 00:32 Ur Leukocyte Esterase 1+ (NEGATIVE) H 12/18/18 00:32 ASSESSMENT AND PLAN: 68 y/o lady with h/o depression who came in with back pain after a mechanical fall. 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 # L4-5 Lumbar disc herniation: likely acute on chronic ,with compression on the sac, on decadron, flexeril, oxycodone, lyrica continue # Urinary retention : could be due to narcotics and immobilization # Depression: cont Cymbalta. DVT PX: Scds; lovenox if ok with the neurosurgery.
[2018-12-23] MEDS: PREGABALIN 100 MG CAPSULE PO SCH (22:14)
[2018-12-23] MEDS: LIDOCAINE PATCH REMOVAL MC SCH (22:15)
[2018-12-23] MEDS: oxyCODONE HCL 5 MG TABLET PO PRN (22:17)
[2018-12-24] MEDS: DEXAMETHASONE SOD PHOSPHATE 4 MG/1 ML VIAL IVPUSH SCH ×4 (02:35→22:19)
[2018-12-24] MEDS ORDERED: ceFAZolin SODIUM 1 GM VIAL ONE ×3 (05:45→21:59)
[2018-12-24] MEDS: DOCUSATE SODIUM 100 MG CAPSULE (FP) PO SCH ×4 (06:10→22:20)
[2018-12-24] MEDS: CEFAZOLIN 1 GM in DEXTROSE 5%-WATER - 50 ML IVPB SCH ×3 (06:11→22:20)
[2018-12-24 08:03] LABS: BASO % 0.1 % (0-2.0); HEMATOCRIT 34.6 % (32.4-45.2); HEMOGLOBIN 11.7 GM/dL (10.7-15.3); LYMPH % 6.5 % (8-40); MCH 30.2 pg (25.7-33.7); MCHC 33.8 g/dl (32.0-36.0); MEAN CELL VOLUME 89.3 fl (80-96); MEAN PLT VOLUME 9.5 fl (7.5-11.1); MONO % 3.8 % (3.8-10.2); NEUT % 89.6 % (42.8-82.8); PLATELET COUNT 182 K/MM3 (134-434); RBC 3.87 M/mm3 (3.60-5.2); RDW 13.4 % (11.6-15.6); WHITE BLOOD COUNT 7.7 K/mm3 (4.0-10.0)
[2018-12-24 08:07] LABS: BLOOD UREA NITROGEN 12.3 mg/dL (7-18); CALCIUM 8.3 mg/dL (8.5-10.1); CREATININE 0.6 mg/dL (0.55-1.3); POTASSIUM 3.8 mmol/L (3.5-5.1)
[2018-12-24] MEDS: PANTOPRAZOLE SODIUM 40 MG VIAL IVPUSH SCH (11:01)
[2018-12-24] MEDS: LIDOCAINE 5% TOPICAL PATCH TP SCH (11:01)
[2018-12-24] MEDS: PREGABALIN 100 MG CAPSULE PO SCH ×2 (11:02→22:19)
[2018-12-24] MEDS: CALCIUM 500MG/VIT-D 200 UNITS COMBO TABLET (FP) PO SCH ×2 (11:02→22:19)
[2018-12-24] MEDS: FOLIC ACID 1 MG TABLET (FP) PO SCH (11:02)
[2018-12-24] MEDS: DULoxetine HCL 30 MG CAPSULE.DR PO SCH (11:02)
--- NOTE | 2018-12-24 11:14 | PN ---
Progress Note (short form) - Note Progress Note: POD #1, s/p C6 corpectomy, PEEK cage and anterior plating Patient seen and examined. Endorses neck pain somewhat relieved with pain regimen. Has been oob to the restroom, voiding without issue. Continues to have left index finger pain/swelling. Reports motor/sensation are intact. Having some difficulty swallowing, reports slight improvement. Denies any CP, SOB, N/V / fever or chills. Vital Signs Temp 98.2 F 12/24/18 10:00 Pulse 69 12/24/18 10:00 Resp 18 12/24/18 10:00 BP 132/76 12/24/18 10:00 Pulse Ox 98 12/23/18 20:45 Intake & Output 12/23/18 12/23/18 12/24/18 11:59 23:59 11:59 Intake Total 1350 1664 Output Total 580 930 Balance 770 734 Intake: IV 1100 1264 LACTATED RINGERS SOLUTION 1100 1264 1,000 ml In 1,000 ml @ 125 mls/hr IV ASDIR SAMI Rx#:[id number] IVPB 250 400 Oral 0 Output: Drainage 30 30 Neck 30 30 Urine 550 900 Thompson 550 900 Other: Voiding Method Indwelling Catheter Indwelling Catheter # Unmeasured Voids Void 2 Bowel Movement No Weight Measurement Method Standing Scale CBC, BMP 12/24/18 06:35 12/24/18 06:35 PE: A&Ox3, NAD Unlabored resp on RA Anterior neck dressing c/d/i. No erythema/ecchymosis or edema noted. Pt speaking in full sentences. L 4/5 attending physician strength, 5/5 attending physician on right. Hand and fingers well perfused. L index finger edematous and ttp. ROM intact in L index finger, limited flexion 2/2 pain. A/P: 68 y/o maltese speaking F admitted on 12/17 after presenting s/p fall at home , pt found to have spondylosis at C56 and C67 with acute disc protrusions, now POD #1, s/p C6 corpectomy, PEEK cage and anterior plating. afebrile, vss L index finger nerve apraxia vs delayed response from initial fall? -Pain regimen as ordered -Cold packs to left hand/finger -Continue DVT prophylaxis with sq heparin, teds and scds -OOB as tolerated and up to chair for meals -PT/OT -C-collar 23 hrs/day -Send urine culture (thompson with cloudy ouput in OR, endorses pain/dysuria with urination -Dispo planning d/w attending Dr Diamond
[2018-12-24] MEDS: oxyCODONE HCL 5 MG TABLET PO PRN ×2 (11:15→22:18)
[2018-12-24] MEDS ORDERED: ACETAMINOPHEN 325 MG TABLET (FP) PO PRN (11:36)
[2018-12-24] MEDS ORDERED: DEXTROSE 5%-WATER - 50 ML IVPB ONE ×2 (14:03→22:00)
[2018-12-24] MEDS ORDERED: BISACODYL 10 MG SUPP.RECT PR PRN (14:04)
[2018-12-24] MEDS: ACETAMINOPHEN 1000 MG/100 ML VIAL (NON FORMULARY) IVPB SCH (17:10)
--- NOTE | 2018-12-24 17:43 | PN ---
Physical Exam: SUBJECTIVE: Patient seen and examined. pt was tearful and anxious because she wanted more solid food and due to neck pain. explained to patient that she jus had surgery and will have discomfort for a while until PT/OP regularly OBJECTIVE: Vital Signs Period Temp Pulse Resp BP Sys/Ram Pulse Ox Last 24 Hr 97.6 F-98.5 F 55-92 18-20 124-135/71-76 98 GENERAL: The patient is awake, alert, and fully oriented, in mod distress. HEAD: Normal with no signs of trauma. EYES: PERRL, extraocular movements intact, sclera anicteric, conjunctiva clear. No ptosis. ENT: oropharynx clear without exudates, slightly dry mucous membranes. NECK: Trachea midline, with surgical dressing and hard collar LUNGS: Breath sounds equal, clear to auscultation bilaterally, no wheezes, no crackles, no accessory muscle use. HEART: Regular rate and rhythm, S1, S2 without murmur, rub or gallop. ABDOMEN: Soft, nontender, nondistended, normoactive bowel sounds, no guarding, no rebound, no hepatosplenomegaly, no masses. EXTREMITIES: 2+ pulses, warm, well-perfused, no edema. NEUROLOGICAL: Cranial nerves II through XII grossly intact. Normal speech, gait not observed. L 4/5 furnace repair mechanic strength, 5/5 furnace repair mechanic on right. Hand and fingers well perfused. L index finger edematous and ttp. ROM intact in L index finger, limited flexion 2/2 pain. Laboratory Results - last 24 hr 12/24/18 12/24/18 06:35 06:35 WBC 7.7 RBC 3.87 Hgb 11.7 Hct 34.6 MCV 89.3 MCH 30.2 MCHC 33.8 RDW 13.4 Plt Count 182 MPV 9.5 Absolute Neuts (auto) 6.9 Neutrophils % 89.6 H Lymphocytes % 6.5 L D Monocytes % 3.8 Eosinophils % 0.0 Basophils % 0.1 Nucleated RBC % 0 Sodium 142 Potassium 3.8 Chloride 105 Carbon Dioxide 30 Anion Gap 6 L BUN 12.3 Creatinine 0.6 Est GFR (CKD-EPI)AfAm 108.55 Est GFR (CKD-EPI)NonAf 93.66 Random Glucose 151 H Calcium 8.3 L Active Medications Generic Name Dose Route Start Last Admin Trade Name Freq PRN Reason Stop Dose Admin Acetaminophen 650 mg 12/24/18 11:36 Tylenol - PO Q4H PRN PAIN OR FEVER Benzocaine/Menthol 1 each 12/23/18 13:42 Cepacol Lozenge - MM PRN PRN SORE THROAT Bisacodyl 10 mg 12/24/18 14:04 12/24/18 14:20 Dulcolax Suppository - [place] 10 mg DAILY PRN Administration CONSTIPATION Calcium Carbonate/Cholecalciferol 1 tab 12/22/18 22:00 12/24/18 11:02 Os-Guillermo 500+D - PO 1 tab BID SAMI Administration Cyclobenzaprine HCl 10 mg 12/22/18 16:56 Flexeril - PO Q8H PRN MUSCLE SPASMS Dexamethasone Sodium Phosphate 4 mg 12/22/18 21:00 12/24/18 14:20 Decadron Injection - IVPUSH 4 mg Q6H-IV SAMI Administration Docusate Sodium 100 mg 12/22/18 22:00 12/24/18 13:57 Colace - PO 100 mg TID SAMI Administration Docusate Sodium 300 mg 12/23/18 22:00 12/23/18 22:16 Colace - PO Not Given HS SAMI Duloxetine HCl 30 mg 12/23/18 10:00 12/24/18 11:02 Cymbalta - PO 30 mg DAILY SAMI Administration Folic Acid 1 mg 12/23/18 10:00 12/24/18 11:02 Folic Acid - PO 1 mg DAILY SAMI Administration Lactated Ringer's 1,000 ml in 1,000 mls @ 125 mls/hr 12/22/18 16:45 12/23/18 18:24 Lactated Ringers Solution IV Not Given ASDIR SAMI Cefazolin Sodium 1 gm/ 50 mls @ 100 mls/hr 12/22/18 23:00 12/24/18 14:20 Dextrose IVPB 100 mls/hr Q8H SAMI Administration Lidocaine 1 patch 12/23/18 10:00 12/24/18 11:01 Lidoderm Patch - TP 1 patch DAILY SAMI Administration Miscellaneous 1 each 12/22/18 22:00 12/23/18 22:15 Lidoderm Patch Removal MC 1 each DAILY@2200 SAMI Administration Ondansetron HCl 4 mg 12/22/18 17:08 Zofran Injection IVPUSH Q6H PRN NAUSEA AND/OR VOMITING Oxycodone HCl 5 mg 12/22/18 16:56 12/24/18 11:15 Roxicodone - PO 5 mg Q4H PRN Administration PAIN LEVEL 4 - 6 Oxycodone HCl 10 mg 12/22/18 16:56 12/23/18 22:17 Roxicodone - PO 10 mg Q4H PRN Administration PAIN LEVEL 7 - 10 Pantoprazole Sodium 40 mg 12/23/18 10:00 12/24/18 11:01 Protonix Iv IVPUSH 40 mg DAILY SAMI Administration Pregabalin 100 mg 12/23/18 22:00 12/24/18 11:02 Lyrica - PO 100 mg BID SAMI Administration Promethazine HCl 12.5 mg 12/22/18 17:08 Phenergan Injection - IVPUSH Q6H PRN NAUSEA-FOR RESCUE AFTER 15 MIN ASSESSMENT/PLAN: 68 y/o lady with h/o depression who came in with back pain after a mechanical fall. She was found to have Right L1, L2 transverse process Fx Acute cervical disk herniation with cord compression POD #2 per Neurosurg,heighten pain sensation in 2&3rd fingers b/l likely from nerve irritation and should improve over time.Cold packs to left hand/finger Continue DVT prophylaxis currently on SCD OOB as tolerated and up to chair for meals PT/OT C-collar 23 hrs/day Cont decadron pain regimen on lido patch, oxy, and tylenol L4-5 Lumbar disc herniation MRI large disc herniation with compression on the sac. acute on chronic cont pain meds steroids discectomy of L4-5 is to happen later after cervical discectomy Constipation still no BM colace 100 TID colace 300 HS Urinary retention resolved since surgery Likely due to cord compression pt using bathroom with faiza urine culture (thompson with cloudy ouput in OR, endorses pain/dysuria with urination) Depression cont Cymbalta. DVT PPX Scds Visit type - Emergency Visit Emergency Visit: Yes ED Registration Date: 12/18/18 Care time: The patient presented to the Emergency Department on the above date and was hospitalized for further evaluation of their emergent condition. - New Patient This patient is new to me today: No - Critical Care Critical Care patient: No - Discharge Referral Referred to [facility] No ATTENDING PHYSICIAN STATEMENT I saw and evaluated the patient. I reviewed the resident's note and discussed the case with the resident. I agree with the resident's findings and plan as documented. SUBJECTIVE: OBJECTIVE: ASSESSMENT AND PLAN:
--- NOTE | 2018-12-24 18:06 | PN ---
Teaching Attending Note Name of Resident: Kanika Crespo ATTENDING PHYSICIAN STATEMENT I saw and evaluated the patient. I reviewed the resident's note and discussed the case with the resident. I agree with the resident's findings and plan as documented. SUBJECTIVE: Patient feels better with no acute distress. OBJECTIVE: Vital Signs Temperature 98.2 F 12/24/18 16:25 Pulse Rate 69 12/24/18 16:25 Respiratory Rate 20 12/24/18 16:25 Blood Pressure 127/72 12/24/18 16:25 O2 Sat by Pulse Oximetry (%) 98 12/23/18 20:45 GENERAL: The patient is awake, alert, and fully oriented, in no acute distress. HEAD: Normal with no signs of trauma. EYES: PERRL, extraocular movements intact, sclera anicteric, conjunctiva clear. ENT: Ears normal, oropharynx clear without exudates, moist mucous membranes. NECK: Trachea midline, full range of motion, supple. LUNGS: Breath sounds equal, clear to auscultation bilaterally, no wheezes, no crackles, no accessory muscle use. HEART: Regular rate and rhythm, S1, S2 without murmur, rub or gallop. ABDOMEN: Soft, nontender, nondistended, normoactive bowel sounds, no guarding, no rebound, no hepatosplenomegaly, no masses. EXTREMITIES: 2+ pulses, warm, well-perfused, Pt speaking in full sentences. L 4/5 subsurface augmentee elint operator strength, 5/5 subsurface augmentee elint operator on right. Hand and fingers well perfused. L index finger edematous . ROM intact in L index finger, limited flexion and pain. NEUROLOGICAL: Cranial nerves II through XII grossly intact. Normal speech, gait not observed.Anterior neck dressing PSYCH: Normal mood, normal affect. SKIN: Warm, dry, normal turgor, no rashes or lesions noted CBCD WBC 7.7 K/mm3 (4.0-10.0) 12/24/18 06:35 RBC 3.87 M/mm3 (3.60-5.2) 12/24/18 06:35 Hgb 11.7 GM/dL (10.7-15.3) 12/24/18 06:35 Hct 34.6 % (32.4-45.2) 12/24/18 06:35 MCV 89.3 fl (80-96) 12/24/18 06:35 MCHC 33.8 g/dl (32.0-36.0) 12/24/18 06:35 RDW 13.4 % (11.6-15.6) 12/24/18 06:35 Plt Count 182 K/MM3 (134-434) 12/24/18 06:35 MPV 9.5 fl (7.5-11.1) 12/24/18 06:35 CMP Sodium 142 mmol/L (136-145) 12/24/18 06:35 Potassium 3.8 mmol/L (3.5-5.1) 12/24/18 06:35 Chloride 105 mmol/L (98-107) 12/24/18 06:35 Carbon Dioxide 30 mmol/L (21-32) 12/24/18 06:35 Anion Gap 6 MMOL/L (8-16) L 12/24/18 06:35 BUN 12.3 mg/dL (7-18) 12/24/18 06:35 Creatinine 0.6 mg/dL (0.55-1.3) 12/24/18 06:35 Random Glucose 151 mg/dL (74-106) H 12/24/18 06:35 Calcium 8.3 mg/dL (8.5-10.1) L 12/24/18 06:35 Total Bilirubin 0.5 mg/dL (0.2-1) 12/18/18 05:40 AST 19 U/L (15-37) 12/18/18 05:40 ALT 26 U/L (13-61) 12/18/18 05:40 Alkaline Phosphatase 72 U/L (45-117) 12/18/18 05:40 Total Protein 6.7 g/dl (6.4-8.2) 12/18/18 05:40 Albumin 3.6 g/dl (3.4-5.0) 12/18/18 05:40 Current Medications Generic Name Dose Route Start Last Admin Trade Name Freq PRN Reason Stop Dose Admin Acetaminophen 650 mg 12/24/18 11:36 Tylenol - PO Q4H PRN PAIN OR FEVER Benzocaine/Menthol 1 each 12/23/18 13:42 Cepacol Lozenge - MM PRN PRN SORE THROAT Bisacodyl 10 mg 12/24/18 14:04 12/24/18 14:20 Dulcolax Suppository - [place] 10 mg DAILY PRN Administration CONSTIPATION Calcium Carbonate/Cholecalciferol 1 tab 12/22/18 22:00 12/24/18 11:02 Os-Guillermo 500+D - PO 1 tab BID SAMI Administration Cyclobenzaprine HCl 10 mg 12/22/18 16:56 Flexeril - PO Q8H PRN MUSCLE SPASMS Dexamethasone Sodium Phosphate 4 mg 12/22/18 21:00 12/24/18 14:20 Decadron Injection - IVPUSH 4 mg Q6H-IV SAMI Administration Docusate Sodium 100 mg 12/22/18 22:00 12/24/18 13:57 Colace - PO 100 mg TID SAMI Administration Docusate Sodium 300 mg 12/23/18 22:00 12/23/18 22:16 Colace - PO Not Given HS SAMI Duloxetine HCl 30 mg 12/23/18 10:00 12/24/18 11:02 Cymbalta - PO 30 mg DAILY SAMI Administration Folic Acid 1 mg 12/23/18 10:00 12/24/18 11:02 Folic Acid - PO 1 mg DAILY SAMI Administration Lactated Ringer's 1,000 ml in 1,000 mls @ 125 mls/hr 12/22/18 16:45 12/23/18 18:24 Lactated Ringers Solution IV Not Given ASDIR SAMI Cefazolin Sodium 1 gm/ 50 mls @ 100 mls/hr 12/22/18 23:00 12/24/18 14:20 Dextrose IVPB 100 mls/hr Q8H SAMI Administration Lidocaine 1 patch 12/23/18 10:00 12/24/18 11:01 Lidoderm Patch - TP 1 patch DAILY SAMI Administration Miscellaneous 1 each 12/22/18 22:00 12/23/18 22:15 Lidoderm Patch Removal MC 1 each DAILY@2200 SAMI Administration Ondansetron HCl 4 mg 12/22/18 17:08 Zofran Injection IVPUSH Q6H PRN NAUSEA AND/OR VOMITING Oxycodone HCl 5 mg 12/22/18 16:56 12/24/18 11:15 Roxicodone - PO 5 mg Q4H PRN Administration PAIN LEVEL 4 - 6 Oxycodone HCl 10 mg 12/22/18 16:56 12/23/18 22:17 Roxicodone - PO 10 mg Q4H PRN Administration PAIN LEVEL 7 - 10 Pantoprazole Sodium 40 mg 12/23/18 10:00 12/24/18 11:01 Protonix Iv IVPUSH 40 mg DAILY SAMI Administration Pregabalin 100 mg 12/23/18 22:00 12/24/18 11:02 Lyrica - PO 100 mg BID SAMI Administration Promethazine HCl 12.5 mg 12/22/18 17:08 Phenergan Injection - IVPUSH Q6H PRN NAUSEA-FOR RESCUE AFTER 15 MIN Home Medications Medication Instructions Recorded Ascorbate Calcium [Vitamin C] 500 mg PO DAILY 12/18/18 Duloxetine HCl [Cymbalta -] 30 mg PO DAILY 12/18/18 Ergocalciferol (Vitamin D2) 50,000 unit PO WEEKLY 12/18/18 [Vitamin D2] Vitamin B Complex [B Complex] 1 tablet PO DAILY 12/18/18 ASSESSMENT AND PLAN: 68 y/o lady with h/o depression who came in with back pain after a mechanical fall. 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 # L4-5 Lumbar disc herniation: likely acute on chronic ,with compression on the sac, on decadron, flexeril, oxycodone, lyrica continue # Urinary retention : could be due to narcotics and immobilization # Depression: cont Cymbalta. DVT PX: Scds; lovenox if ok with the neurosurgery. waiting for rehab
[2018-12-24] MEDS: LIDOCAINE PATCH REMOVAL MC SCH (22:20)
[2018-12-24] MEDS: LACTATED RINGERS SOLUTION 1,000 ML/1,000 ML INFUS.BAG IV SCH (22:22)
[2018-12-25] MEDS: DEXAMETHASONE SOD PHOSPHATE 4 MG/1 ML VIAL IVPUSH SCH ×2 (03:05→08:57)
[2018-12-25] MEDS: DOCUSATE SODIUM 100 MG CAPSULE (FP) PO SCH ×4 (06:09→23:36)
[2018-12-25] MEDS: CEFAZOLIN 1 GM in DEXTROSE 5%-WATER - 50 ML IVPB SCH ×3 (06:09→23:35)
[2018-12-25 08:14] LABS: BASO % 0.1 % (0-2.0); HEMATOCRIT 35.3 % (32.4-45.2); HEMOGLOBIN 11.9 GM/dL (10.7-15.3); LYMPH % 7.4 % (8-40); MCH 29.8 pg (25.7-33.7); MCHC 33.6 g/dl (32.0-36.0); MEAN CELL VOLUME 88.7 fl (80-96); MEAN PLT VOLUME 9.7 fl (7.5-11.1); MONO % 5.5 % (3.8-10.2); PLATELET COUNT 177 K/MM3 (134-434); RBC 3.98 M/mm3 (3.60-5.2); RDW 13.5 % (11.6-15.6); WHITE BLOOD COUNT 7.6 K/mm3 (4.0-10.0)
[2018-12-25 08:39] LABS: BLOOD UREA NITROGEN 13.5 mg/dL (7-18); CREATININE 0.6 mg/dL (0.55-1.3); POTASSIUM 3.7 mmol/L (3.5-5.1)
--- NOTE | 2018-12-25 08:46 | PN ---
Teaching Attending Note Name of Resident: Kanika Crespo ATTENDING PHYSICIAN STATEMENT I saw and evaluated the patient. I reviewed the resident's note and discussed the case with the resident. I agree with the resident's findings and plan as documented. SUBJECTIVE: Patient is feeling better . fingers are better except mild swelling of left trigger finger, improving OBJECTIVE: Vital Signs Temperature 98 F 12/25/18 04:00 Pulse Rate 61 12/25/18 04:00 Respiratory Rate 20 12/25/18 04:00 Blood Pressure 149/88 12/25/18 04:00 O2 Sat by Pulse Oximetry (%) 95 12/24/18 21:00 GENERAL: The patient is awake, alert, and fully oriented, in no acute distress. HEAD: Normal with no signs of trauma. EYES: PERRL, extraocular movements intact, sclera anicteric, conjunctiva clear. ENT: Ears normal, oropharynx clear without exudates, moist mucous membranes. NECK: Trachea midline, full range of motion, supple. LUNGS: Breath sounds equal, clear to auscultation bilaterally, no wheezes, no crackles, no accessory muscle use. HEART: Regular rate and rhythm, S1, S2 without murmur, rub or gallop. ABDOMEN: Soft, nontender, nondistended, normoactive bowel sounds, no guarding, no rebound, no hepatosplenomegaly, no masses. EXTREMITIES: 2+ pulses, warm, well-perfused, Pt speaking in full sentences. L 4/5 clinical engineering director strength, 5/5 clinical engineering director on right. Hand and fingers well perfused. L index finger edematous . ROM intact in L index finger, limited flexion and pain. NEUROLOGICAL: Cranial nerves II through XII grossly intact. Normal speech, gait not observed, Anterior neck dressing PSYCH: Normal mood, normal affect. SKIN: Warm, dry, normal turgor, no rashes or lesions noted CBCD WBC 7.6 K/mm3 (4.0-10.0) 12/25/18 06:55 RBC 3.98 M/mm3 (3.60-5.2) 12/25/18 06:55 Hgb 11.9 GM/dL (10.7-15.3) 12/25/18 06:55 Hct 35.3 % (32.4-45.2) 12/25/18 06:55 MCV 88.7 fl (80-96) 12/25/18 06:55 MCHC 33.6 g/dl (32.0-36.0) 12/25/18 06:55 RDW 13.5 % (11.6-15.6) 12/25/18 06:55 Plt Count 177 K/MM3 (134-434) 12/25/18 06:55 MPV 9.7 fl (7.5-11.1) 12/25/18 06:55 CMP Sodium 138 mmol/L (136-145) 12/25/18 06:55 Potassium 3.7 mmol/L (3.5-5.1) 12/25/18 06:55 Chloride 102 mmol/L (98-107) 12/25/18 06:55 Carbon Dioxide 30 mmol/L (21-32) 12/25/18 06:55 Anion Gap 6 MMOL/L (8-16) L 12/25/18 06:55 BUN 13.5 mg/dL (7-18) 12/25/18 06:55 Creatinine 0.6 mg/dL (0.55-1.3) 12/25/18 06:55 Random Glucose 149 mg/dL (74-106) H 12/25/18 06:55 Calcium 8.0 mg/dL (8.5-10.1) L 12/25/18 06:55 Total Bilirubin 0.5 mg/dL (0.2-1) 12/18/18 05:40 AST 19 U/L (15-37) 12/18/18 05:40 ALT 26 U/L (13-61) 12/18/18 05:40 Alkaline Phosphatase 72 U/L (45-117) 12/18/18 05:40 Total Protein 6.7 g/dl (6.4-8.2) 12/18/18 05:40 Albumin 3.6 g/dl (3.4-5.0) 12/18/18 05:40 Current Medications Generic Name Dose Route Start Last Admin Trade Name Freq PRN Reason Stop Dose Admin Acetaminophen 650 mg 12/24/18 11:36 Tylenol - PO Q4H PRN PAIN OR FEVER Benzocaine/Menthol 1 each 12/23/18 13:42 Cepacol Lozenge - MM PRN PRN SORE THROAT Bisacodyl 10 mg 12/24/18 14:04 12/24/18 14:20 Dulcolax Suppository - [place] 10 mg DAILY PRN Administration CONSTIPATION Calcium Carbonate/Cholecalciferol 1 tab 12/22/18 22:00 12/24/18 22:19 Os-Guillemro 500+D - PO 1 tab BID SAMI Administration Cyclobenzaprine HCl 10 mg 12/22/18 16:56 Flexeril - PO Q8H PRN MUSCLE SPASMS Dexamethasone Sodium Phosphate 4 mg 12/22/18 21:00 12/25/18 03:05 Decadron Injection - IVPUSH 4 mg Q6H-IV SAMI Administration Docusate Sodium 100 mg 12/22/18 22:00 12/25/18 06:09 Colace - PO 100 mg TID SAMI Administration Docusate Sodium 300 mg 12/23/18 22:00 12/24/18 22:20 Colace - PO 300 mg HS SAMI Administration Duloxetine HCl 30 mg 12/23/18 10:00 12/24/18 11:02 Cymbalta - PO 30 mg DAILY SAMI Administration Folic Acid 1 mg 12/23/18 10:00 12/24/18 11:02 Folic Acid - PO 1 mg DAILY SAMI Administration Lactated Ringer's 1,000 ml in 1,000 mls @ 125 mls/hr 12/22/18 16:45 12/24/18 22:22 Lactated Ringers Solution IV Not Given ASDIR SAMI Cefazolin Sodium 1 gm/ 50 mls @ 100 mls/hr 12/22/18 23:00 12/25/18 06:09 Dextrose IVPB 100 mls/hr Q8H SAMI Administration Lidocaine 1 patch 12/23/18 10:00 12/24/18 11:01 Lidoderm Patch - TP 1 patch DAILY SAMI Administration Miscellaneous 1 each 12/22/18 22:00 12/24/18 22:20 Lidoderm Patch Removal MC Not Given DAILY@2200 SAMI Ondansetron HCl 4 mg 12/22/18 17:08 Zofran Injection IVPUSH Q6H PRN NAUSEA AND/OR VOMITING Oxycodone HCl 5 mg 12/22/18 16:56 12/24/18 11:15 Roxicodone - PO 5 mg Q4H PRN Administration PAIN LEVEL 4 - 6 Oxycodone HCl 10 mg 12/22/18 16:56 12/24/18 22:18 Roxicodone - PO 10 mg Q4H PRN Administration PAIN LEVEL 7 - 10 Pantoprazole Sodium 40 mg 12/23/18 10:00 12/24/18 11:01 Protonix Iv IVPUSH 40 mg DAILY SAMI Administration Pregabalin 100 mg 12/23/18 22:00 12/24/18 22:19 Lyrica - PO 100 mg BID SAMI Administration Promethazine HCl 12.5 mg 12/22/18 17:08 Phenergan Injection - IVPUSH Q6H PRN NAUSEA-FOR RESCUE AFTER 15 MIN Home Medications Medication Instructions Recorded Ascorbate Calcium [Vitamin C] 500 mg PO DAILY 12/18/18 Duloxetine HCl [Cymbalta -] 30 mg PO DAILY 12/18/18 Ergocalciferol (Vitamin D2) 50,000 unit PO WEEKLY 12/18/18 [Vitamin D2] Vitamin B Complex [B Complex] 1 tablet PO DAILY 12/18/18 ASSESSMENT AND PLAN: 68 y/o lady with h/o depression who came in with back pain after a mechanical fall. She was found to have Right L1, L2 transverse process Fx # POD 4 s/p C6 corpectomy due to Spondylosis at C56 and C67 with acute disc protrusions , continue wearing neck collar. # L4-5 Lumbar disc herniation: likely acute on chronic ,with compression on the sac, will start tapering the decadron 3x per day then 2x per day then one time per day , oxycodone, lyrica continue , surgery by on Friday. # Urinary retention : could be due to narcotics and immobilization # Depression: cont Cymbalta. DVT PX: Scds; heparin sq, will hold the sq heparin before surgery on Friday. rehab once stable
[2018-12-25] MEDS: LIDOCAINE 5% TOPICAL PATCH TP SCH (09:53)
[2018-12-25] MEDS: PANTOPRAZOLE SODIUM 40 MG VIAL IVPUSH SCH (09:53)
[2018-12-25] MEDS: CALCIUM 500MG/VIT-D 200 UNITS COMBO TABLET (FP) PO SCH ×2 (09:54→23:36)
[2018-12-25] MEDS: PREGABALIN 100 MG CAPSULE PO SCH ×2 (09:54→23:36)
[2018-12-25] MEDS: DULoxetine HCL 30 MG CAPSULE.DR PO SCH (09:54)
[2018-12-25] MEDS: FOLIC ACID 1 MG TABLET (FP) PO SCH (09:54)
--- NOTE | 2018-12-25 11:46 | SPA.PREOP ---
- PRE-OP NOTE Dx: Lumbar stenosis/ multiple disc herniations Planned Procedure: L3-5 Laminectomies/fusion Surgeon: Dr Misael Chopra Last Vital Signs Temp Pulse Resp BP Pulse Ox 98.2 F 85 18 146/79 95 12/25/18 09:40 12/25/18 09:40 12/25/18 09:40 12/25/18 09:40 12/24/18 21:00 Lab Results WBC 7.6 K/mm3 (4.0-10.0) 12/25/18 06:55 RBC 3.98 M/mm3 (3.60-5.2) 12/25/18 06:55 Hgb 11.9 GM/dL (10.7-15.3) 12/25/18 06:55 Hct 35.3 % (32.4-45.2) 12/25/18 06:55 MCV 88.7 fl (80-96) 12/25/18 06:55 MCHC 33.6 g/dl (32.0-36.0) 12/25/18 06:55 RDW 13.5 % (11.6-15.6) 12/25/18 06:55 Plt Count 177 K/MM3 (134-434) 12/25/18 06:55 Sodium 138 mmol/L (136-145) 12/25/18 06:55 Potassium 3.7 mmol/L (3.5-5.1) 12/25/18 06:55 Chloride 102 mmol/L (98-107) 12/25/18 06:55 Carbon Dioxide 30 mmol/L (21-32) 12/25/18 06:55 Anion Gap 6 MMOL/L (8-16) L 12/25/18 06:55 BUN 13.5 mg/dL (7-18) 12/25/18 06:55 Creatinine 0.6 mg/dL (0.55-1.3) 12/25/18 06:55 Random Glucose 149 mg/dL (74-106) H 12/25/18 06:55 Calcium 8.0 mg/dL (8.5-10.1) L 12/25/18 06:55 Blood Type A POSITIVE 12/22/18 06:50 Antibody Screen Negative 12/22/18 06:50 INR 0.91 (0.83-1.09) 12/22/18 06:50 - IMAGING Chest X-ray: Report Reviewed (No active pulmonary disease 12/18/18), Image Reviewed Cat Scan: Report Reviewed (Lumbar and Cervical ct scans from this admission (12/18 and 12/21 respectively)) MRI: Report Reviewed (Lumbar and thoracic mri this admission (12/19)) EKG: Report Reviewed (Nomal sinus rhythm, possible inferior infarct, age indeterminate (12/17/18)) - ASSESSMENT/PLAN A/P: 68 y/o portuguese speaking F w/ pmhx depression, lumbar stenosis/pain admitted 12/17 after fall off chair at home, found to have spondylosis at C56 and C67 with acute disc protrusions, now s/p C6 corpectomy, PEEK cage and anterior plating on 12/22, planned for L3-5 Laminectomies/fusion on 12/[address] Chopra. 1. Make NPO after midnight Friday, 12/27, except po meds 2. GI/DVT PPX 3. Medical optimization / clearance 4. Consent to be obtained by surgeon after risks, benefits and alternatives discussed with patient and or Health Care Proxy. 5. If any anticoagulation is initiated (pt is not aon any chemical DVT prophylaxis currently), please make sure to hold on Friday night (12/27) 6. Urine culture negative (pt had murky urine output upon placement of thompson in OR)
[2018-12-25] MEDS: oxyCODONE HCL 5 MG TABLET PO PRN (12:51)
[2018-12-25] MEDS: HEPARIN NA (PORCINE) 5,000 UNITS/ML 1ML VIAL SQ SCH ×2 (13:50→23:36)
--- NOTE | 2018-12-25 14:43 | PN ---
Progress Note (short form) - Note Progress Note: POD#1 Pt had BM yesterday. Finger less swollen. No complaints. Vital Signs Period Temp Pulse Resp BP Sys/Ram Pulse Ox Last 24 Hr 97.8 F-98.8 F 57-85 18-20 127-151/72-88 95 GEN: A&0x3, NAD NECK: Inc c/d/i with dressing. Payette J collar in place. Hand: purification operator strength equal b/l. Left 2nd finer less swollen LE: b/l no calf tenderess or swlling noted. CBC, BMP // 06:55 10// 06:55 A/P: 68 yo female s/p C6 corpectomy, POD#1 Doing well surgically, plan for laminectomy of L3-5 for Friday Continue diet as tolerated oral pain meds OOB/ambulate stool softners as needed for constipation
[2018-12-25] MEDS ORDERED: DEXAMETHASONE SOD PHOSPHATE 4 MG/1 ML VIAL IVPUSH ONE (15:00)
[2018-12-25] MEDS ORDERED: DEXTROSE 5%-WATER - 50 ML IVPB ONE ×2 (15:33→23:32)
[2018-12-25] MEDS ORDERED: ceFAZolin SODIUM 1 GM VIAL ONE ×2 (15:33→23:31)
--- NOTE | 2018-12-25 15:39 | PN ---
Physical Exam: SUBJECTIVE: Patient seen and examined. pt appeared less anxious. Pt endorsed significant improvement of her pain to 4-6/10. Pt ambulating with brace and assistance. pt had a BM OBJECTIVE: Vital Signs Period Temp Pulse Resp BP Sys/Ram Pulse Ox Last 24 Hr 97.8 F-98.8 F 57-85 18-20 127-151/72-88 95 GENERAL: The patient is awake, alert, and fully oriented, in mild distress. HEAD: Normal with no signs of trauma. EYES: PERRL, extraocular movements intact, sclera anicteric, conjunctiva clear. No ptosis. ENT: oropharynx clear without exudates, moist mucous membranes. NECK: Trachea midline, with surgical dressing and hard collar LUNGS: Breath sounds equal, clear to auscultation bilaterally, no wheezes, no crackles, no accessory muscle use. HEART: Regular rate and rhythm, S1, S2 without murmur, rub or gallop. ABDOMEN: Soft, mild tender, nondistended, normoactive bowel sounds, no guarding , no rebound, no hepatosplenomegaly, no masses. EXTREMITIES: 2+ pulses, warm, well-perfused, no edema. NEUROLOGICAL: Cranial nerves II through XII grossly intact. Normal speech, gait not observed. L 5/5 annual giving manager strength, 5/5 annual giving manager on right. Hand and fingers well perfused. L index finger less edematous. ROM intact in L index finger. Laboratory Results - last 24 hr 12/25/18 12/25/18 06:55 06:55 WBC 7.6 RBC 3.98 Hgb 11.9 Hct 35.3 MCV 88.7 MCH 29.8 MCHC 33.6 RDW 13.5 Plt Count 177 MPV 9.7 Absolute Neuts (auto) 6.6 Neutrophils % 87.0 H Lymphocytes % 7.4 L Monocytes % 5.5 Eosinophils % 0.0 Basophils % 0.1 Nucleated RBC % 0 Sodium 138 Potassium 3.7 Chloride 102 Carbon Dioxide 30 Anion Gap 6 L BUN 13.5 Creatinine 0.6 Est GFR (CKD-EPI)AfAm 108.55 Est GFR (CKD-EPI)NonAf 93.66 Random Glucose 149 H Calcium 8.0 L Active Medications Generic Name Dose Route Start Last Admin Trade Name Freq PRN Reason Stop Dose Admin Acetaminophen 650 mg 12/24/18 11:36 Tylenol - PO Q4H PRN PAIN OR FEVER Benzocaine/Menthol 1 each 12/23/18 13:42 Cepacol Lozenge - MM PRN PRN SORE THROAT Bisacodyl 10 mg 12/24/18 14:04 12/24/18 14:20 Dulcolax Suppository - [place] 10 mg DAILY PRN Administration CONSTIPATION Calcium Carbonate/Cholecalciferol 1 tab 12/22/18 22:00 12/25/18 09:54 Os-Guillermo 500+D - PO 1 tab BID SAMI Administration Chlorhexidine Gluconate 1 applic 12/27/18 22:00 Hibiclens For Decolonization - TP HS SAMI Cyclobenzaprine HCl 10 mg 12/22/18 16:56 Flexeril - PO Q8H PRN MUSCLE SPASMS Dexamethasone Sodium Phosphate 4 mg 12/26/18 02:00 Decadron Injection - IVPUSH 12/27/18 02:00 Q8H-IV SAMI Dexamethasone Sodium Phosphate 4 mg 12/27/18 13:30 Decadron Injection - IVPUSH 12/27/18 22:00 Q12H SAMI Docusate Sodium 100 mg 12/22/18 22:00 12/25/18 13:50 Colace - PO 100 mg TID SAMI Administration Docusate Sodium 300 mg 12/23/18 22:00 12/24/18 22:20 Colace - PO 300 mg HS SAMI Administration Duloxetine HCl 30 mg 12/23/18 10:00 12/25/18 09:54 Cymbalta - PO 30 mg DAILY SAMI Administration Folic Acid 1 mg 12/23/18 10:00 12/25/18 09:54 Folic Acid - PO 1 mg DAILY SAMI Administration Heparin Sodium (Porcine) 5,000 unit 12/25/18 14:00 12/25/18 13:50 Heparin - SQ 12/27/18 22:00 5,000 unit TID SAMI Administration Lactated Ringer's 1,000 ml in 1,000 mls @ 125 mls/hr 12/22/18 16:45 12/24/18 22:22 Lactated Ringers Solution IV Not Given ASDIR SAMI Cefazolin Sodium 1 gm/ 50 mls @ 100 mls/hr 12/22/18 23:00 12/25/18 15:37 Dextrose IVPB 100 mls/hr Q8H SAMI Administration Lidocaine 1 patch 12/23/18 10:00 12/25/18 09:53 Lidoderm Patch - TP 1 patch DAILY SAMI Administration Miscellaneous 1 each 12/22/18 22:00 12/24/18 22:20 Lidoderm Patch Removal MC Not Given DAILY@2200 SAMI Ondansetron HCl 4 mg 12/22/18 17:08 Zofran Injection IVPUSH Q6H PRN NAUSEA AND/OR VOMITING Oxycodone HCl 5 mg 12/22/18 16:56 12/25/18 12:51 Roxicodone - PO 5 mg Q4H PRN Administration PAIN LEVEL 4 - 6 Oxycodone HCl 10 mg 12/22/18 16:56 12/24/18 22:18 Roxicodone - PO 10 mg Q4H PRN Administration PAIN LEVEL 7 - 10 Pantoprazole Sodium 40 mg 12/23/18 10:00 12/25/18 09:53 Protonix Iv IVPUSH 40 mg DAILY SAMI Administration Pregabalin 100 mg 12/23/18 22:00 12/25/18 09:54 Lyrica - PO 100 mg BID SAMI Administration Promethazine HCl 12.5 mg 12/22/18 17:08 Phenergan Injection - IVPUSH Q6H PRN NAUSEA-FOR RESCUE AFTER 15 MIN ASSESSMENT/PLAN: 68 y/o lady with h/o depression who came in with back pain after a mechanical fall. She was found to have Right L1, L2 transverse process Fx Acute cervical disk herniation with cord compression POD #3 heighten pain sensation in 2&3rd b/l fingers improved. only present in left 2nd finger at a 4/10. cont Cold packs to left hand/finger OOB as tolerated and up to chair for meals PT/OT C-collar 23 hrs/day D/C decadron. started on taper til friday pain regimen on lido patch, oxy, and tylenol L4-5 Lumbar disc herniation Per Neurosurg, Pt plan for laminectomy tentatively on friday12/28/18 MRI large disc herniation with compression on the sac. acute on chronic cont pain meds GI PPX Constipation one BM cont bowel regimen colace 100 TID colace 300 HS Urinary retention resolved since surgery pt using bathroom with faiza urine culture (thompson with cloudy ouput in OR, endorses pain/dysuria with urination) Depression cont Cymbalta. DVT PPX Scds and Hep sub Q (scheduled to stop on friday) Visit type - Emergency Visit Emergency Visit: Yes ED Registration Date: 12/18/18 Care time: The patient presented to the Emergency Department on the above date and was hospitalized for further evaluation of their emergent condition. - New Patient This patient is new to me today: No - Critical Care Critical Care patient: No - Discharge Referral Referred to [facility] Med P.C.: No ATTENDING PHYSICIAN STATEMENT I saw and evaluated the patient. I reviewed the resident's note and discussed the case with the resident. I agree with the resident's findings and plan as documented. SUBJECTIVE: OBJECTIVE: ASSESSMENT AND PLAN:
[2018-12-25] MEDS: LACTATED RINGERS SOLUTION 1,000 ML/1,000 ML INFUS.BAG IV SCH (23:37)
[2018-12-25] MEDS: LIDOCAINE PATCH REMOVAL MC SCH (23:37)
[2018-12-26] MEDS: DEXAMETHASONE SOD PHOSPHATE 4 MG/1 ML VIAL IVPUSH SCH ×3 (01:40→17:27)
[2018-12-26] MEDS: DOCUSATE SODIUM 100 MG CAPSULE (FP) PO SCH ×4 (06:42→22:20)
[2018-12-26] MEDS: HEPARIN NA (PORCINE) 5,000 UNITS/ML 1ML VIAL SQ SCH ×3 (06:42→22:20)
[2018-12-26 07:30] VITALS: BMI 24.0
[2018-12-26] MEDS ORDERED: DEXTROSE 5%-WATER - 50 ML IVPB ONE ×3 (07:31→20:58)
[2018-12-26] MEDS ORDERED: ceFAZolin SODIUM 1 GM VIAL ONE ×3 (07:31→20:58)
[2018-12-26] MEDS: CEFAZOLIN 1 GM in DEXTROSE 5%-WATER - 50 ML IVPB SCH ×3 (07:34→22:21)
[2018-12-26] MEDS: DULoxetine HCL 30 MG CAPSULE.DR PO SCH (10:06)
[2018-12-26] MEDS: CALCIUM 500MG/VIT-D 200 UNITS COMBO TABLET (FP) PO SCH ×2 (10:06→22:21)
[2018-12-26] MEDS: FOLIC ACID 1 MG TABLET (FP) PO SCH (10:06)
[2018-12-26] MEDS: LIDOCAINE 5% TOPICAL PATCH TP SCH (10:06)
[2018-12-26] MEDS: PANTOPRAZOLE SODIUM 40 MG VIAL IVPUSH SCH (10:06)
[2018-12-26] MEDS: PREGABALIN 100 MG CAPSULE PO SCH ×2 (10:06→22:21)
--- NOTE | 2018-12-26 11:02 | PN ---
Progress Note (short form) - Note Progress Note: Sitting on the chair with no acute distress. Vital Signs Temperature 97.9 F 12/26/18 10:00 Pulse Rate 69 12/26/18 10:00 Respiratory Rate 18 12/26/18 10:00 Blood Pressure 145/85 12/26/18 10:00 O2 Sat by Pulse Oximetry (%) 93 L 12/25/18 21:00 GENERAL: The patient is awake, alert, and fully oriented, in no acute distress. HEAD: Normal with no signs of trauma. EYES: PERRL, extraocular movements intact, sclera anicteric, conjunctiva clear. ENT: Ears normal, oropharynx clear without exudates, moist mucous membranes. NECK: Trachea midline, full range of motion, supple. LUNGS: Breath sounds equal, clear to auscultation bilaterally, no wheezes, no crackles, no accessory muscle use. HEART: Regular rate and rhythm, S1, S2 without murmur, rub or gallop. ABDOMEN: Soft, nontender, nondistended, normoactive bowel sounds, no guarding, no rebound, no hepatosplenomegaly, no masses. EXTREMITIES: 2+ pulses, warm, well-perfused, Pt speaking in full sentences. L 4/5 african history professor strength, 5/5 african history professor on right. Hand and fingers well perfused. L index finger edematous . ROM intact in L index finger, limited flexion and pain. NEUROLOGICAL: Cranial nerves II through XII grossly intact. Normal speech, gait not observed, Anterior neck dressing PSYCH: Normal mood, normal affect. SKIN: Warm, dry, normal turgor, no rashes or lesions noted WBC 7.6 K/mm3 (4.0-10.0) 12/25/18 06:55 RBC 3.98 M/mm3 (3.60-5.2) 12/25/18 06:55 Hgb 11.9 GM/dL (10.7-15.3) 12/25/18 06:55 Hct 35.3 % (32.4-45.2) 12/25/18 06:55 MCV 88.7 fl (80-96) 12/25/18 06:55 MCHC 33.6 g/dl (32.0-36.0) 12/25/18 06:55 RDW 13.5 % (11.6-15.6) 12/25/18 06:55 Plt Count 177 K/MM3 (134-434) 12/25/18 06:55 MPV 9.7 fl (7.5-11.1) 12/25/18 06:55 CMP Sodium 138 mmol/L (136-145) 12/25/18 06:55 Potassium 3.7 mmol/L (3.5-5.1) 12/25/18 06:55 Chloride 102 mmol/L (98-107) 12/25/18 06:55 Carbon Dioxide 30 mmol/L (21-32) 12/25/18 06:55 Anion Gap 6 MMOL/L (8-16) L 12/25/18 06:55 BUN 13.5 mg/dL (7-18) 12/25/18 06:55 Creatinine 0.6 mg/dL (0.55-1.3) 12/25/18 06:55 Random Glucose 149 mg/dL (74-106) H 12/25/18 06:55 Calcium 8.0 mg/dL (8.5-10.1) L 12/25/18 06:55 Total Bilirubin 0.5 mg/dL (0.2-1) 12/18/18 05:40 AST 19 U/L (15-37) 12/18/18 05:40 ALT 26 U/L (13-61) 12/18/18 05:40 Alkaline Phosphatase 72 U/L (45-117) 12/18/18 05:40 Total Protein 6.7 g/dl (6.4-8.2) 12/18/18 05:40 Albumin 3.6 g/dl (3.4-5.0) 12/18/18 05:40 Current Medications Generic Name Dose Route Start Last Admin Trade Name Freq PRN Reason Stop Dose Admin Acetaminophen 650 mg 12/24/18 11:36 Tylenol - PO Q4H PRN PAIN OR FEVER Benzocaine/Menthol 1 each 12/23/18 13:42 Cepacol Lozenge - MM PRN PRN SORE THROAT Bisacodyl 10 mg 12/24/18 14:04 12/24/18 14:20 Dulcolax Suppository - [place] 10 mg DAILY PRN Administration CONSTIPATION Calcium Carbonate/Cholecalciferol 1 tab 12/22/18 22:00 12/26/18 10:06 Os-Guillermo 500+D - PO 1 tab BID SAMI Administration Chlorhexidine Gluconate 1 applic 12/27/18 22:00 Hibiclens For Decolonization - TP HS SAMI Cyclobenzaprine HCl 10 mg 12/22/18 16:56 Flexeril - PO Q8H PRN MUSCLE SPASMS Dexamethasone Sodium Phosphate 4 mg 12/26/18 02:00 12/26/18 10:06 Decadron Injection - IVPUSH 12/27/18 02:00 4 mg Q8H-IV SAMI Administration Dexamethasone Sodium Phosphate 4 mg 12/27/18 13:30 Decadron Injection - IVPUSH 12/27/18 22:00 Q12H SAMI Docusate Sodium 100 mg 12/22/18 22:00 12/26/18 06:42 Colace - PO 100 mg TID SAMI Administration Docusate Sodium 300 mg 12/23/18 22:00 12/25/18 23:36 Colace - PO 300 mg HS SAMI Administration Duloxetine HCl 30 mg 12/23/18 10:00 12/26/18 10:06 Cymbalta - PO 30 mg DAILY SAMI Administration Folic Acid 1 mg 12/23/18 10:00 12/26/18 10:06 Folic Acid - PO 1 mg DAILY SAMI Administration Heparin Sodium (Porcine) 5,000 unit 12/25/18 14:00 12/26/18 06:42 Heparin - SQ 12/27/18 22:00 5,000 unit TID SAMI Administration Lactated Ringer's 1,000 ml in 1,000 mls @ 125 mls/hr 12/22/18 16:45 12/25/18 23:37 Lactated Ringers Solution IV Not Given ASDIR SAMI Cefazolin Sodium 1 gm/ 50 mls @ 100 mls/hr 12/22/18 23:00 12/26/18 07:34 Dextrose IVPB 100 mls/hr Q8H SAMI Administration Lidocaine 1 patch 12/23/18 10:00 12/26/18 10:06 Lidoderm Patch - TP 1 patch DAILY SAMI Administration Miscellaneous 1 each 12/22/18 22:00 12/25/18 23:37 Lidoderm Patch Removal MC Not Given DAILY@2200 SAMI Ondansetron HCl 4 mg 12/22/18 17:08 Zofran Injection IVPUSH Q6H PRN NAUSEA AND/OR VOMITING Pantoprazole Sodium 40 mg 12/23/18 10:00 12/26/18 10:06 Protonix Iv IVPUSH 40 mg DAILY SAMI Administration Pregabalin 100 mg 12/23/18 22:00 12/26/18 10:06 Lyrica - PO 100 mg BID SAMI Administration Promethazine HCl 12.5 mg 12/22/18 17:08 Phenergan Injection - IVPUSH Q6H PRN NAUSEA-FOR RESCUE AFTER 15 MIN Home Medications Medication Instructions Recorded Ascorbate Calcium [Vitamin C] 500 mg PO DAILY 12/18/18 Duloxetine HCl [Cymbalta -] 30 mg PO DAILY 12/18/18 Ergocalciferol (Vitamin D2) 50,000 unit PO WEEKLY 12/18/18 [Vitamin D2] Vitamin B Complex [B Complex] 1 tablet PO DAILY 12/18/18 ASSESSMENT AND PLAN: 68 y/o lady with h/o depression who came in with back pain after a mechanical fall. 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 # L4-5 Lumbar disc herniation: likely acute on chronic ,with compression on the sac, will start tapering the decadron 3x per day then 2x per day then one time per day , oxycodone, lyrica continue , surgery by on Friday. # Urinary retention : improved # Depression: cont Cymbalta. DVT PX: Scds; heparin sq, will hold the sq heparin before surgery on Friday. rehab once stable Visit type - Emergency Visit Emergency Visit: Yes ED Registration Date: 12/18/18 Care time: The patient presented to the Emergency Department on the above date and was hospitalized for further evaluation of their emergent condition. - New Patient This patient is new to me today: No - Critical Care Critical Care patient: No - Discharge Referral Referred to [facility] Med P.C.: No
[2018-12-26] MEDS: LIDOCAINE PATCH REMOVAL MC SCH (22:21)
[2018-12-27] MEDS: DEXAMETHASONE SOD PHOSPHATE 4 MG/1 ML VIAL IVPUSH SCH (01:57)
[2018-12-27] MEDS ORDERED: DEXTROSE 5%-WATER - 50 ML IVPB ONE ×2 (05:59→14:55)
[2018-12-27] MEDS ORDERED: ceFAZolin SODIUM 1 GM VIAL ONE ×2 (05:59→14:55)
[2018-12-27] MEDS: HEPARIN NA (PORCINE) 5,000 UNITS/ML 1ML VIAL SQ SCH ×3 (06:00→21:21)
[2018-12-27] MEDS: DOCUSATE SODIUM 100 MG CAPSULE (FP) PO SCH ×3 (06:00→21:20)
[2018-12-27] MEDS: CEFAZOLIN 1 GM in DEXTROSE 5%-WATER - 50 ML IVPB SCH ×3 (06:58→23:12)
[2018-12-27 08:07] LABS: BASO % 0.1 % (0-2.0); EOS % 0.1 % (0-4.5); HEMATOCRIT 39.8 % (32.4-45.2); HEMOGLOBIN 13.3 GM/dL (10.7-15.3); LYMPH % 9.1 % (8-40); MCH 29.7 pg (25.7-33.7); MCHC 33.5 g/dl (32.0-36.0); MEAN CELL VOLUME 88.7 fl (80-96); MEAN PLT VOLUME 9.8 fl (7.5-11.1); MONO % 2.7 % (3.8-10.2); PLATELET COUNT 224 K/MM3 (134-434); RBC 4.49 M/mm3 (3.60-5.2); RDW 13.6 % (11.6-15.6); WHITE BLOOD COUNT 7.2 K/mm3 (4.0-10.0)
[2018-12-27 08:22] LABS: INR 0.92 (0.83-1.09); PROTHROMBIN TIME (PATIENT) 10.9 SEC (9.7-13.0)
[2018-12-27 08:42] LABS: BLOOD UREA NITROGEN 12.5 mg/dL (7-18); CALCIUM 8.9 mg/dL (8.5-10.1); CREATININE 0.6 mg/dL (0.55-1.3); MAGNESIUM 2.3 mg/dL (1.8-2.4); PHOSPHOROUS 3.2 mg/dL (2.5-4.9); POTASSIUM 3.8 mmol/L (3.5-5.1)
[2018-12-27] MEDS ORDERED: DEXAMETHASONE SOD PHOSPHATE 4 MG/1 ML VIAL IVPUSH SCH ×2 (10:00→13:30)
--- NOTE | 2018-12-27 10:29 | PN ---
Progress Note (short form) - Note Progress Note: patient is sitting on the chair, comfortable with no acute distress. Vital Signs Temperature 98.2 F 12/26/18 20:00 Pulse Rate 65 12/26/18 20:00 Respiratory Rate 20 12/26/18 20:00 Blood Pressure 142/79 12/26/18 20:00 O2 Sat by Pulse Oximetry (%) 95 12/26/18 09:00 GENERAL: The patient is awake, alert, and fully oriented, in no acute distress. HEAD: Normal with no signs of trauma. EYES: PERRL, extraocular movements intact, sclera anicteric, conjunctiva clear. ENT: Ears normal, oropharynx clear without exudates, moist mucous membranes. NECK: Trachea midline, full range of motion, supple. LUNGS: Breath sounds equal, clear to auscultation bilaterally, no wheezes, no crackles, no accessory muscle use. HEART: Regular rate and rhythm, S1, S2 without murmur, rub or gallop. ABDOMEN: Soft, nontender, nondistended, normoactive bowel sounds, no guarding, no rebound, no hepatosplenomegaly, no masses. EXTREMITIES: 2+ pulses, warm, well-perfused, Pt speaking in full sentences. Left 4/5 bulwark carpenter strength, 5/5 bulwark carpenter on right. Hand and fingers well perfused. ROM intact in L index finger, limited flexion and pain. NEUROLOGICAL: Cranial nerves II through XII grossly intact. Normal speech, gait not observed, Anterior neck dressing PSYCH: Normal mood, normal affect. SKIN: Warm, dry, normal turgor, no rashes or lesions noted WBC 7.2 K/mm3 (4.0-10.0) 12/27/18 07:00 RBC 4.49 M/mm3 (3.60-5.2) 12/27/18 07:00 Hgb 13.3 GM/dL (10.7-15.3) 12/27/18 07:00 Hct 39.8 % (32.4-45.2) 12/27/18 07:00 MCV 88.7 fl (80-96) 12/27/18 07:00 MCHC 33.5 g/dl (32.0-36.0) 12/27/18 07:00 RDW 13.6 % (11.6-15.6) 12/27/18 07:00 Plt Count 224 K/MM3 (134-434) D 12/27/18 07:00 MPV 9.8 fl (7.5-11.1) 12/27/18 07:00 CMP Sodium 141 mmol/L (136-145) 12/27/18 07:00 Potassium 3.8 mmol/L (3.5-5.1) 12/27/18 07:00 Chloride 104 mmol/L (98-107) 12/27/18 07:00 Carbon Dioxide 27 mmol/L (21-32) 12/27/18 07:00 Anion Gap 10 MMOL/L (8-16) 12/27/18 07:00 BUN 12.5 mg/dL (7-18) 12/27/18 07:00 Creatinine 0.6 mg/dL (0.55-1.3) 12/27/18 07:00 Random Glucose 149 mg/dL (74-106) H 12/27/18 07:00 Calcium 8.9 mg/dL (8.5-10.1) 12/27/18 07:00 Total Bilirubin 0.5 mg/dL (0.2-1) 12/18/18 05:40 AST 19 U/L (15-37) 12/18/18 05:40 ALT 26 U/L (13-61) 12/18/18 05:40 Alkaline Phosphatase 72 U/L (45-117) 12/18/18 05:40 Total Protein 6.7 g/dl (6.4-8.2) 12/18/18 05:40 Albumin 3.6 g/dl (3.4-5.0) 12/18/18 05:40 Current Medications Generic Name Dose Route Start Last Admin Trade Name Freq PRN Reason Stop Dose Admin Acetaminophen 650 mg 12/24/18 11:36 Tylenol - PO Q4H PRN PAIN OR FEVER Benzocaine/Menthol 1 each 12/23/18 13:42 Cepacol Lozenge - MM PRN PRN SORE THROAT Bisacodyl 10 mg 12/24/18 14:04 12/24/18 14:20 Dulcolax Suppository - [place] 10 mg DAILY PRN Administration CONSTIPATION Calcium Carbonate/Cholecalciferol 1 tab 12/22/18 22:00 12/26/18 22:21 Os-Guillermo 500+D - PO 1 tab BID SAMI Administration Chlorhexidine Gluconate 1 applic 12/27/18 22:00 Hibiclens For Decolonization - TP HS SAMI Cyclobenzaprine HCl 10 mg 12/22/18 16:56 Flexeril - PO Q8H PRN MUSCLE SPASMS Dexamethasone Sodium Phosphate 4 mg 12/27/18 13:30 Decadron Injection - IVPUSH 12/27/18 22:00 Q12H SAMI Docusate Sodium 100 mg 12/22/18 22:00 12/27/18 06:00 Colace - PO 100 mg TID SAMI Administration Docusate Sodium 300 mg 12/23/18 22:00 12/26/18 22:20 Colace - PO 300 mg HS SAMI Administration Duloxetine HCl 30 mg 12/23/18 10:00 12/26/18 10:06 Cymbalta - PO 30 mg DAILY SAMI Administration Folic Acid 1 mg 12/23/18 10:00 12/26/18 10:06 Folic Acid - PO 1 mg DAILY SAMI Administration Heparin Sodium (Porcine) 5,000 unit 12/25/18 14:00 12/27/18 06:00 Heparin - SQ 12/27/18 22:00 5,000 unit TID SAMI Administration Lactated Ringer's 1,000 ml in 1,000 mls @ 125 mls/hr 12/22/18 16:45 12/25/18 23:37 Lactated Ringers Solution IV Not Given ASDIR SAMI Cefazolin Sodium 1 gm/ 50 mls @ 100 mls/hr 12/22/18 23:00 12/27/18 06:58 Dextrose IVPB 100 mls/hr Q8H SAMI Administration Lidocaine 1 patch 12/23/18 10:00 12/26/18 10:06 Lidoderm Patch - TP 1 patch DAILY SAMI Administration Miscellaneous 1 each 12/22/18 22:00 12/26/18 22:21 Lidoderm Patch Removal MC Not Given DAILY@2200 [facility] Ondansetron HCl 4 mg 12/22/18 17:08 Zofran Injection IVPUSH Q6H PRN NAUSEA AND/OR VOMITING Pantoprazole Sodium 40 mg 12/23/18 10:00 12/26/18 10:06 Protonix Iv IVPUSH 40 mg DAILY SAMI Administration Pregabalin 100 mg 12/23/18 22:00 12/26/18 22:21 Lyrica - PO 100 mg BID SAMI Administration Promethazine HCl 12.5 mg 12/22/18 17:08 Phenergan Injection - IVPUSH Q6H PRN NAUSEA-FOR RESCUE AFTER 15 MIN Home Medications Medication Instructions Recorded Ascorbate Calcium [Vitamin C] 500 mg PO DAILY 12/18/18 Duloxetine HCl [Cymbalta -] 30 mg PO DAILY 12/18/18 Ergocalciferol (Vitamin D2) 50,000 unit PO WEEKLY 12/18/18 [Vitamin D2] Vitamin B Complex [B Complex] 1 tablet PO DAILY 12/18/18 ASSESSMENT AND PLAN: 68 y/o lady with h/o depression who came in with back pain after a mechanical fall. 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 # L4-5 Lumbar disc herniation: likely acute on chronic ,with compression on the sac, will start tapering the decadron 3x per day then 2x per day then one time per day , oxycodone, lyrica continue , surgery by on Friday. going for sx in am . # Urinary retention : could be due to narcotics and immobilization # Depression: cont Cymbalta. DVT PX: Scds; heparin sq, will hold the sq heparin before surgery on Friday. rehab once stable Visit type - Emergency Visit Emergency Visit: Yes ED Registration Date: 12/18/18 Care time: The patient presented to the Emergency Department on the above date and was hospitalized for further evaluation of their emergent condition. - New Patient This patient is new to me today: No - Critical Care Critical Care patient: No - Discharge Referral Referred to [facility] Med P.C.: No
[2018-12-27] MEDS ORDERED: PT OWN MED DRAWER 7, Y5N ONE (11:02)
[2018-12-27] MEDS: LIDOCAINE 5% TOPICAL PATCH TP SCH (11:08)
[2018-12-27] MEDS: CALCIUM 500MG/VIT-D 200 UNITS COMBO TABLET (FP) PO SCH ×2 (11:08→21:21)
[2018-12-27] MEDS: PREGABALIN 100 MG CAPSULE PO SCH ×2 (11:09→21:20)
[2018-12-27] MEDS: DULoxetine HCL 30 MG CAPSULE.DR PO SCH (11:09)
[2018-12-27] MEDS: FOLIC ACID 1 MG TABLET (FP) PO SCH (11:09)
[2018-12-27] MEDS: PANTOPRAZOLE SODIUM 40 MG VIAL IVPUSH SCH (11:09)
[2018-12-27] MEDS: LIDOCAINE PATCH REMOVAL MC SCH (21:21)
[2018-12-27] MEDS ORDERED: CHLORHEXIDINE GLUCONATE 4% CLEANSER FOR DECOLONIZATION TP SCH (22:00)
[2018-12-28] MEDS ORDERED: ceFAZolin SODIUM 1 GM VIAL ONE ×3 (02:00→18:30)
[2018-12-28] MEDS ORDERED: DEXTROSE 5%-WATER - 50 ML IVPB ONE ×2 (02:01→06:03)
[2018-12-28] MEDS: DOCUSATE SODIUM 100 MG CAPSULE (FP) PO SCH ×3 (06:27→21:23)
[2018-12-28] MEDS: CEFAZOLIN 1 GM in DEXTROSE 5%-WATER - 50 ML IVPB SCH ×2 (06:27→19:00)
--- NOTE | 2018-12-28 09:59 | PN ---
Teaching Attending Note Name of Resident: Kanika Crespo ATTENDING PHYSICIAN STATEMENT I saw and evaluated the patient. I reviewed the resident's note and discussed the case with the resident. I agree with the resident's findings and plan as documented. SUBJECTIVE: Patient is comfortable with no acute distress, going to OR for laminectomy today. OBJECTIVE: Vital Signs Temperature 97.6 F 12/28/18 09:14 Pulse Rate 63 12/28/18 09:14 Respiratory Rate 18 12/28/18 09:14 Blood Pressure 148/88 12/28/18 09:14 O2 Sat by Pulse Oximetry (%) 94 L 12/27/18 09:00 GENERAL: The patient is awake, alert, and fully oriented, in no acute distress. HEAD: Normal with no signs of trauma. EYES: PERRL, extraocular movements intact, sclera anicteric, conjunctiva clear. ENT: Ears normal, oropharynx clear without exudates, moist mucous membranes. NECK: Trachea midline, full range of motion, supple. LUNGS: Breath sounds equal, clear to auscultation bilaterally, no wheezes, no crackles, no accessory muscle use. HEART: Regular rate and rhythm, S1, S2 without murmur, rub or gallop. ABDOMEN: Soft, nontender, nondistended, normoactive bowel sounds, no guarding, no rebound, no hepatosplenomegaly, no masses. EXTREMITIES: 2+ pulses, warm, well-perfused, Pt speaking in full sentences. L 4/5 insulator technician strength, 5/5 insulator technician on right. Hand and fingers well perfused.ROM intact in L index finger, limited flexion and pain. NEUROLOGICAL: Cranial nerves II through XII grossly intact. Normal speech, gait not observed, Anterior neck dressing PSYCH: Normal mood, normal affect. SKIN: Warm, dry, normal turgor, no rashes or lesions noted CBCD WBC 7.2 K/mm3 (4.0-10.0) 12/27/18 07:00 RBC 4.49 M/mm3 (3.60-5.2) 12/27/18 07:00 Hgb 13.3 GM/dL (10.7-15.3) 12/27/18 07:00 Hct 39.8 % (32.4-45.2) 12/27/18 07:00 MCV 88.7 fl (80-96) 12/27/18 07:00 MCHC 33.5 g/dl (32.0-36.0) 12/27/18 07:00 RDW 13.6 % (11.6-15.6) 12/27/18 07:00 Plt Count 224 K/MM3 (134-434) D 12/27/18 07:00 MPV 9.8 fl (7.5-11.1) 12/27/18 07:00 CMP Sodium 141 mmol/L (136-145) 12/27/18 07:00 Potassium 3.8 mmol/L (3.5-5.1) 12/27/18 07:00 Chloride 104 mmol/L (98-107) 12/27/18 07:00 Carbon Dioxide 27 mmol/L (21-32) 12/27/18 07:00 Anion Gap 10 MMOL/L (8-16) 12/27/18 07:00 BUN 12.5 mg/dL (7-18) 12/27/18 07:00 Creatinine 0.6 mg/dL (0.55-1.3) 12/27/18 07:00 Random Glucose 149 mg/dL (74-106) H 12/27/18 07:00 Calcium 8.9 mg/dL (8.5-10.1) 12/27/18 07:00 Total Bilirubin 0.5 mg/dL (0.2-1) 12/18/18 05:40 AST 19 U/L (15-37) 12/18/18 05:40 ALT 26 U/L (13-61) 12/18/18 05:40 Alkaline Phosphatase 72 U/L (45-117) 12/18/18 05:40 Total Protein 6.7 g/dl (6.4-8.2) 12/18/18 05:40 Albumin 3.6 g/dl (3.4-5.0) 12/18/18 05:40 Current Medications Generic Name Dose Route Start Last Admin Trade Name Freq PRN Reason Stop Dose Admin Acetaminophen 650 mg 12/24/18 11:36 12/27/18 15:13 Tylenol - PO 650 mg Q4H PRN Administration PAIN OR FEVER Benzocaine/Menthol 1 each 12/23/18 13:42 Cepacol Lozenge - MM PRN PRN SORE THROAT Bisacodyl 10 mg 12/24/18 14:04 10/10/19 14:20 Dulcolax Suppository - [place] 10 mg DAILY PRN Administration CONSTIPATION Calcium Carbonate/Cholecalciferol 1 tab 12/22/18 22:00 12/27/18 21:21 Os-Guillermo 500+D - PO 1 tab BID SAMI Administration Chlorhexidine Gluconate 1 applic 12/27/18 22:00 Hibiclens For Decolonization - TP HS SAMI Cyclobenzaprine HCl 10 mg 12/22/18 16:56 12/27/18 15:13 Flexeril - PO 10 mg Q8H PRN Administration MUSCLE SPASMS Docusate Sodium 100 mg 12/22/18 22:00 12/28/18 06:27 Colace - PO 100 mg TID SAMI Administration Duloxetine HCl 30 mg 12/23/18 10:00 12/27/18 11:09 Cymbalta - PO 30 mg DAILY SAMI Administration Folic Acid 1 mg 12/23/18 10:00 12/27/18 11:09 Folic Acid - PO 1 mg DAILY SAMI Administration Cefazolin Sodium 1 gm/ 50 mls @ 100 mls/hr 12/22/18 23:00 12/28/18 06:27 Dextrose IVPB 100 mls/hr Q8H SAMI Administration Lidocaine 1 patch 12/23/18 10:00 12/27/18 11:08 Lidoderm Patch - TP 1 patch DAILY SAMI Administration Miscellaneous 1 each 12/22/18 22:00 12/27/18 21:21 Lidoderm Patch Removal MC 1 each DAILY@2200 SAMI Administration Pantoprazole Sodium 40 mg 12/23/18 10:00 12/27/18 11:09 Protonix Iv IVPUSH 40 mg DAILY SAMI Administration Pregabalin 100 mg 12/23/18 22:00 12/27/18 21:20 Lyrica - PO 100 mg BID SAMI Administration Home Medications Medication Instructions Recorded Ascorbate Calcium [Vitamin C] 500 mg PO DAILY 12/18/18 Duloxetine HCl [Cymbalta -] 30 mg PO DAILY 12/18/18 Ergocalciferol (Vitamin D2) 50,000 unit PO WEEKLY 12/18/18 [Vitamin D2] Vitamin B Complex [B Complex] 1 tablet PO DAILY 12/18/18 ASSESSMENT AND PLAN: 68 y/o lady with h/o depression who came in with back pain after a mechanical fall. 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 # L4-5 Lumbar disc herniation: likely acute on chronic ,with compression on the sac, will start tapering the decadron 3x per day then 2x per day then one time per day , oxycodone, lyrica continue , surgery by on Friday. # Urinary retention : could be due to narcotics and immobilization # Depression: cont Cymbalta. DVT PX: Scds; heparin sq, will hold the sq heparin before surgery on Friday. rehab once stable going to OR today.
[2018-12-28] MEDS ORDERED: GENTAMICIN SO4 80 MG/2 ML VIAL ONE (10:49)
[2018-12-28] MEDS ORDERED: LIDOCAINE HCL 1% EPINEPHRINE 1:200,000 30 ML VIAL (PF) ONE (10:49)
[2018-12-28] MEDS ORDERED: MORPHINE 5 MG/10 ML AMP - FOR COMPOUNDING USE ONLY ONE (10:55)
[2018-12-28] MEDS ORDERED: PROPOFOL 20 ML ONE ×3 (11:17→14:20)
[2018-12-28] MEDS ORDERED: ROCURONIUM BROMIDE 50 MG/5 ML SYRINGE ONE (11:17)
[2018-12-28] MEDS ORDERED: fentaNYL CITRATE 250 MCG/5 ML VIAL ONE (11:17)
[2018-12-28] MEDS ORDERED: VANCOMYCIN 1,000 MG VIAL (RESTRICTED TO ID ONLY) ONE (11:24)
[2018-12-28] MEDS ORDERED: ceFAZolin SODIUM 1 GM VIAL IVPB ONE (11:34)
[2018-12-28] MEDS ORDERED: VANCOMYCIN 1 GM in NS (PRE-DOCKED) 1,000 MG/250 ML IVPB ONE (11:35)
[2018-12-28] MEDS ORDERED: LIDOCAINE 1%/EPI 1:100000 (20 ML MULTI DOSE VIAL) IJ ONE ×2 (11:56→12:39)
[2018-12-28] MEDS ORDERED: THROMBIN (BOVINE) 5,000 UNIT VIAL TP ONE (12:15)
[2018-12-28] MEDS ORDERED: LIDO 2%/EPI 1:200000 PRESRVFRE (20 ML SDVIAL) INF ONE (12:39)
[2018-12-28] MEDS ORDERED: BACITRACIN 50,000 UNITS VIAL TP ONE (12:45)
[2018-12-28] MEDS ORDERED: BUPIVACAINE LIPOSOME/PF (EXPAREL) 266 MG/20 ML VIAL NR ONE ×2 (12:47→14:05)
[2018-12-28] MEDS ORDERED: BUPIVACAINE HCL/PF 0.5% (5 MG/ML) 30 ML VIAL IJ ONE ×2 (12:48→14:05)
[2018-12-28] MEDS ORDERED: ePHEDrine SULFATE 50 MG/1 ML AMPULE ONE (13:06)
[2018-12-28] MEDS ORDERED: HYDROGEN PEROXIDE 473 ML PO ONE (13:25)
[2018-12-28] MEDS ORDERED: DEXAMETHASONE SOD PHOSPHATE 4 MG/1 ML VIAL ONE (13:40)
[2018-12-28] MEDS ORDERED: NEOSTIGMINE METHYLSULFATE 0.5 MG/ML - 10 ML MDV ONE ×2 (13:41→14:11)
[2018-12-28] MEDS ORDERED: GENTAMICIN SO4 80 MG/2 ML VIAL IVPB ONE (13:43)
[2018-12-28] MEDS ORDERED: GLYCOPYRROLATE 0.2 MG/1 ML VIAL ONE ×2 (14:10→14:17)
--- NOTE | 2018-12-28 14:10 | PN ---
Physical Exam: SUBJECTIVE: Patient seen and examined. pt NPO for procedure this AM OBJECTIVE: Vital Signs Period Temp Pulse Resp BP Sys/Ram Pulse Ox Last 24 Hr 97.6 F-98.4 F 63-87 18-20 128-152/65-93 GENERAL: The patient is awake, alert, and fully oriented, in mild distress. HEAD: Normal with no signs of trauma. EYES: PERRL, extraocular movements intact, sclera anicteric, conjunctiva clear. No ptosis. ENT: oropharynx clear without exudates, moist mucous membranes. NECK: Trachea midline, with surgical dressing and hard collar LUNGS: Breath sounds equal, clear to auscultation bilaterally, no wheezes, no crackles, no accessory muscle use. HEART: Regular rate and rhythm, S1, S2 without murmur, rub or gallop. ABDOMEN: Soft, mild tender, nondistended, normoactive bowel sounds, no guarding , no rebound, no hepatosplenomegaly, no masses. EXTREMITIES: 2+ pulses, warm, well-perfused, no edema. NEUROLOGICAL: Cranial nerves II through XII grossly intact. Normal speech, gait not observed. L 5/5 transplant registered nurse strength, 5/5 transplant registered nurse on right. Hand and fingers well perfused. L index finger less edematous. ROM intact in L index finger. Laboratory Results - last 24 hr 12/28/18 06:50 Blood Type A POSITIVE Antibody Screen Negative Active Medications Generic Name Dose Route Start Last Admin Trade Name Freq PRN Reason Stop Dose Admin Acetaminophen 650 mg 12/24/18 11:36 12/27/18 15:13 Tylenol - PO 650 mg Q4H PRN Administration PAIN OR FEVER Benzocaine/Menthol 1 each 12/23/18 13:42 Cepacol Lozenge - MM PRN PRN SORE THROAT Bisacodyl 10 mg 12/24/18 14:04 12/24/18 14:20 Dulcolax Suppository - [place] 10 mg DAILY PRN Administration CONSTIPATION Calcium Carbonate/Cholecalciferol 1 tab 12/22/18 22:00 12/27/18 21:21 Os-Guillermo 500+D - PO 1 tab BID [facility] Administration Chlorhexidine Gluconate 1 applic 12/27/18 22:00 Hibiclens For Decolonization - TP HS [facility] Cyclobenzaprine HCl 10 mg 12/22/18 16:56 12/27/18 15:13 Flexeril - PO 10 mg Q8H PRN Administration MUSCLE SPASMS Docusate Sodium 100 mg 12/22/18 22:00 12/28/18 06:27 Colace - PO 100 mg TID [facility] Administration Duloxetine HCl 30 mg 12/23/18 10:00 12/27/18 11:09 Cymbalta - PO 30 mg DAILY [facility] Administration Folic Acid 1 mg 12/23/18 10:00 12/27/18 11:09 Folic Acid - PO 1 mg DAILY [facility] Administration Cefazolin Sodium 1 gm/ 50 mls @ 100 mls/hr 12/22/18 23:00 12/28/18 06:27 Dextrose IVPB 100 mls/hr Q8H [facility] Administration Lidocaine 1 patch 12/23/18 10:00 12/27/18 11:08 Lidoderm Patch - TP 1 patch DAILY [facility] Administration Miscellaneous 1 each 12/22/18 22:00 12/27/18 21:21 Lidoderm Patch Removal MC 1 each DAILY@2200 [facility] Administration Pantoprazole Sodium 40 mg 12/23/18 10:00 12/27/18 11:09 Protonix Iv IVPUSH 40 mg DAILY [facility] Administration Pregabalin 100 mg 12/23/18 22:00 12/27/18 21:20 Lyrica - PO 100 mg BID [facility] Administration ASSESSMENT/PLAN: 68 y/o lady with h/o depression who came in with back pain after a mechanical fall. She was found to have Right L1, L2 transverse process Fx Acute cervical disk herniation with cord compression POD #6 heighten pain sensation in 2&3rd b/l fingers improved. OOB as tolerated and up to chair for meals PT/OT C-collar 23 hrs/day steroid taper ended friday12/27/18 pain regimen on lido patch, oxy, and tylenol L4-5 Lumbar disc herniation Went to OR this morning Per Neurosurg, laminectomy in L4-L5 MRI large disc herniation with compression on the sac. acute on chronic cont pain meds GI PPX Constipation pt has BMs cont bowel regimen Urinary retention resolved since surgery pt using bathroom with faiza urine culture no growth Depression cont Cymbalta. DVT PPX Scds Visit type - Emergency Visit Emergency Visit: Yes ED Registration Date: 12/18/18 Care time: The patient presented to the Emergency Department on the above date and was hospitalized for further evaluation of their emergent condition. - New Patient This patient is new to me today: No - Critical Care Critical Care patient: No - Discharge Referral Referred to [facility] Med P.C.: No ATTENDING PHYSICIAN STATEMENT I saw and evaluated the patient. I reviewed the resident's note and discussed the case with the resident. I agree with the resident's findings and plan as documented. SUBJECTIVE: OBJECTIVE: ASSESSMENT AND PLAN:
[2018-12-28] MEDS ORDERED: diphenhydrAMINE HCL 25 MG CAPSULE (FP) PO PRN (14:55)
[2018-12-28] MEDS ORDERED: ONDANSETRON 4 MG/2 ML VIAL IVPUSH PRN ×3 (14:55→15:01)
[2018-12-28] MEDS ORDERED: PROMETHAZINE HCL 25 MG/1 ML VIAL IVPUSH PRN (15:00)
[2018-12-28] MEDS ORDERED: IBUPROFEN 600 MG TABLET (FP) PO PRN (15:01)
[2018-12-28] MEDS ORDERED: ACETAMINOPHEN 325 MG TABLET (FP) PO PRN ×2 (15:01→15:48)
--- NOTE | 2018-12-28 15:06 | OP ---
Operative Note - Note: Operative Date: 12/28/18 Pre-Operative Diagnosis: lumbar spondylosis, L3 fracture, lumbar instability Operation: L3-L5 laminectomies, decompression and fusion with pedicle screws. Post-Operative Diagnosis: Same as Pre-op Surgeon: Misael Patrick Matchbook Assembler: Rachel Lacey Anesthesiologist/BANKRUPTCY JUDGE: George Muller Anesthesia: Spinal (duramorph), Local, MAC Estimated Blood Loss (mls): 400 Drains & Tubes with Location: NAVYA right paravertebral Drains, Volume Out (mls): 400 (thompson) Fluid Volume Replaced (mls): 1,800 Operative Report Dictated: Yes
[2018-12-28] MEDS ORDERED: BENZOCAINE/MENTH/CETYLPYRD CL 1 EACH LOZENGE MM PRN ×2 (15:48→16:28)
[2018-12-28] MEDS ORDERED: BISACODYL 10 MG SUPP.RECT PR PRN (15:48)
[2018-12-28] MEDS: DULoxetine HCL 30 MG CAPSULE.DR PO SCH (16:27)
[2018-12-28] MEDS: LIDOCAINE 5% TOPICAL PATCH TP SCH (16:27)
[2018-12-28] MEDS: FOLIC ACID 1 MG TABLET (FP) PO SCH (16:27)
[2018-12-28] MEDS: CALCIUM 500MG/VIT-D 200 UNITS COMBO TABLET (FP) PO SCH ×2 (16:28→21:23)
[2018-12-28] MEDS: PANTOPRAZOLE SODIUM 40 MG VIAL IVPUSH SCH (16:28)
[2018-12-28] MEDS: PREGABALIN 100 MG CAPSULE PO SCH ×2 (16:28→21:23)
[2018-12-28] MEDS: LACTATED RINGERS SOLUTION 1,000 ML/1,000 ML INFUS.BAG IV SCH (20:20)
[2018-12-28] MEDS: HEPARIN NA (PORCINE) 5,000 UNITS/ML 1ML VIAL SQ SCH (21:23)
[2018-12-28] MEDS ORDERED: LIDOCAINE PATCH REMOVAL MC SCH (22:00)
[2018-12-29] MEDS ORDERED: ceFAZolin SODIUM 1 GM VIAL ONE ×3 (01:59→18:18)
[2018-12-29] MEDS ORDERED: DEXTROSE 5%-WATER - 50 ML IVPB ONE ×3 (02:00→18:19)
[2018-12-29] MEDS: CEFAZOLIN 1 GM in DEXTROSE 5%-WATER - 50 ML IVPB SCH ×3 (02:07→18:26)
[2018-12-29] MEDS: LACTATED RINGERS SOLUTION 1,000 ML/1,000 ML INFUS.BAG IV SCH ×3 (05:00→16:33)
[2018-12-29] MEDS: HEPARIN NA (PORCINE) 5,000 UNITS/ML 1ML VIAL SQ SCH ×3 (06:12→21:59)
[2018-12-29] MEDS: DOCUSATE SODIUM 100 MG CAPSULE (FP) PO SCH ×3 (06:12→21:59)
[2018-12-29 07:20] LABS: HEMATOCRIT 28.5 % (32.4-45.2); HEMOGLOBIN 9.6 GM/dL (10.7-15.3); MCH 30.3 pg (25.7-33.7); MCHC 33.8 g/dl (32.0-36.0); MEAN CELL VOLUME 89.8 fl (80-96); MEAN PLT VOLUME 9.7 fl (7.5-11.1); PLATELET COUNT 167 K/MM3 (134-434); RBC 3.18 M/mm3 (3.60-5.2); RDW 13.4 % (11.6-15.6); WHITE BLOOD COUNT 10.1 K/mm3 (4.0-10.0)
[2018-12-29 07:43] LABS: BLOOD UREA NITROGEN 12.7 mg/dL (7-18); CREATININE 0.7 mg/dL (0.55-1.3)
--- NOTE | 2018-12-29 07:58 | PN ---
Progress Note (short form) - Note Progress Note: 68yo F s/p C6 corpectomy POD 7 and L3-L5 lami/fusion POD 1, pt seen and examined in Tele bed. Pt complaining of some lower back pain. Pt denies fever, chills, n/v, weakness in extremities. Last Vital Signs Temp Pulse Resp BP Pulse Ox 99.3 F 72 14 105/69 98 12/29/18 06:00 12/29/18 07:56 12/29/18 07:56 12/29/18 07:56 12/29/18 07:45 CBC, BMP 12/29/18 05:40 12/29/18 05:40 PE; Gen: A&O x3 Resp: breathing comfortably Back: lumber dressing in place clean. Drain present with serosanguinous drainage. Ext: no weakness or numbness, no edema Problem List - Problems (1) Lumbar spondylosis Assessment/Plan: Plan -pt was given duramorph so needed in monitored bed, plan to transfer to regular bed this afternoon. -oob with PT -pain management per anesthesia -dvt ppx Code(s): M47.816 - SPONDYLOSIS W/O MYELOPATHY OR RADICULOPATHY, LUMBAR REGION
[2018-12-29] MEDS ORDERED: HYDROmorphone *PCA* 10MG/50ML DISP.SYRIN PCA SCH ×3 (08:00→15:50)
[2018-12-29] MEDS ORDERED: PT OWN MED DRAWER 7, Y5N ONE (08:29)
[2018-12-29] MEDS: CALCIUM 500MG/VIT-D 200 UNITS COMBO TABLET (FP) PO SCH ×2 (09:25→21:59)
[2018-12-29] MEDS: PREGABALIN 100 MG CAPSULE PO SCH ×2 (09:25→21:59)
--- NOTE | 2018-12-29 09:41 | PN ---
Progress Note (short form) - Note Progress Note: POD 1 s/p L3-5 laminectomy posterior fusion. Patient c/o some pain this am. Patient had received intrathecal duramorph and did well overnight. PAPER STEAMER started this am. Denies n/v, able to move all extremities. Continue PAPER STEAMER.
--- NOTE | 2018-12-29 09:44 | SURG ---
Surgery Hydraulic Engineer Note Hydraulic Engineer: Josh Gregg PA-C Date of Service: 12/29/18 Diagnosis: Cervical Spondylotic Myelopathy Procedure: 1. Interbody Cage (Corpectomy) 2. C5 Caudal Hemicorpectomy w/ resection of osteophytes and Posterior Longitudinal Ligament 3. C6 Corpectomy w/ resection of osteophytes and Posterior Longitudinal Ligament 4. C7 Rostral Hemicorpectomy w/ resection of osteophytes and Posterior Longitudinal Ligament 5. Anterior Instrumentation C5-C7 (technically challenging) 6. Fluroscopy 7. Microdissection 8. C5/6 Arthrodesis 9. C6/7 Arthrodesis 10. Local autograft 11. Deformity correction (hoahaoism of lordosis) I was present for the entirety of the operative procedure. For further detail, please refer to operative report. Visit type - Case Type Case Type: ED Admission - Emergency Emergency Visit: Yes ED Registration Date: 12/18/18 Care time: The patient presented to the Emergency Department on the above date and was hospitalized for further evaluation of their emergent condition. - New patient This patient is new to me today: Yes Date on this admission: 12/29/18
[2018-12-29] MEDS ORDERED: DULoxetine HCL 30 MG CAPSULE.DR PO SCH (10:00)
[2018-12-29] MEDS ORDERED: FOLIC ACID 1 MG TABLET (FP) PO SCH (10:00)
[2018-12-29] MEDS ORDERED: PANTOPRAZOLE SODIUM 40 MG VIAL IVPUSH SCH (10:00)
--- NOTE | 2018-12-29 10:59 | PN ---
Physical Exam: SUBJECTIVE: Patient seen and examined. pt c/o pain 12/24. Anesthesia saw pt and changed PHOSPHORUS PROCESSING SUPERVISOR OBJECTIVE: Vital Signs Period Temp Pulse Resp BP Sys/Ram Pulse Ox Last 24 Hr 98 F-100.3 F 67-87 12-22 93-145/63-80 95-100 GENERAL: The patient is awake, alert, and fully oriented, in mod distress. HEAD: Normal with no signs of trauma. EYES: PERRL, extraocular movements intact, sclera anicteric, conjunctiva clear. No ptosis. ENT: oropharynx clear without exudates, moist mucous membranes. NECK: Trachea midline, with surgical dressing and hard collar LUNGS: Breath sounds equal, clear to auscultation bilaterally, no wheezes, no crackles, no accessory muscle use. HEART: Regular rate and rhythm, S1, S2 without murmur, rub or gallop. ABDOMEN: Soft, mild tender, nondistended, normoactive bowel sounds, no guarding , no rebound, no hepatosplenomegaly, no masses. EXTREMITIES: 2+ pulses, warm, well-perfused, no edema. NEUROLOGICAL: Cranial nerves II through XII grossly intact. Normal speech, gait not observed. L 5/5 visual education director strength, 5/5 visual education director on right. Hand and fingers well perfused. LE strength 5/5 and sensation also intact Laboratory Results - last 24 hr 12/29/18 12/29/18 05:40 05:40 WBC 10.1 H RBC 3.18 L Hgb 9.6 L Hct 28.5 L D MCV 89.8 MCH 30.3 MCHC 33.8 RDW 13.4 Plt Count 167 D MPV 9.7 Sodium 138 Potassium 4.0 Chloride 100 Carbon Dioxide 33 H Anion Gap 5 L BUN 12.7 Creatinine 0.7 Est GFR (CKD-EPI)AfAm 103.18 Est GFR (CKD-EPI)NonAf 89.03 Random Glucose 88 Calcium 8.0 L Active Medications Generic Name Dose Route Start Last Admin Trade Name Freq PRN Reason Stop Dose Admin Acetaminophen 650 mg 12/28/18 15:01 12/29/18 09:26 Tylenol - PO 650 mg Q4H PRN Administration PAIN LEVEL 1-5 Acetaminophen 650 mg 12/28/18 15:48 Tylenol - PO Q4H PRN FEVER Benzocaine/Menthol 1 each 12/28/18 16:28 Cepacol Lozenge - MM Q4H PRN SORE THROAT Bisacodyl 10 mg 12/28/18 15:48 Dulcolax Suppository - [place] DAILY PRN CONSTIPATION Calcium Carbonate/Cholecalciferol 1 tab 12/28/18 22:00 12/29/18 09:25 Os-Guillermo 500+D - PO 1 tab BID [facility] Administration Chlorhexidine Gluconate 1 applic 12/29/18 22:00 Hibiclens For Decolonization - TP HS [facility] Diphenhydramine HCl 25 mg 12/28/18 14:55 Benadryl - PO Q6H PRN FOR ITCHING Diphenhydramine HCl 25 mg 12/28/18 15:01 Benadryl Injection - IVPUSH Q4H PRN Pruritis Docusate Sodium 100 mg 12/28/18 22:00 12/29/18 06:12 Colace - PO 100 mg TID [facility] Administration Duloxetine HCl 30 mg 12/29/18 10:00 12/29/18 09:24 Cymbalta - PO 30 mg DAILY [facility] Administration Folic Acid 1 mg 12/29/18 10:00 12/29/18 09:24 Folic Acid - PO 1 mg DAILY [facility] Administration Heparin Sodium (Porcine) 5,000 unit 12/28/18 22:00 12/29/18 06:12 Heparin - SQ 5,000 unit Q8H [facility] Administration Hydromorphone HCl 10 mg 12/29/18 10:02 Hydromorphone 10 Mg/50 Ml-Ns PHOSPHORUS PROCESSING SUPERVISOR 12/30/18 07:59 PHOSPHORUS PROCESSING SUPERVISOR [facility] Protocol Cefazolin Sodium 1 gm/ 50 mls @ 100 mls/hr 12/28/18 19:00 12/29/18 10:22 Dextrose IVPB 100 mls/hr Q8H [facility] Administration Lactated Ringer's 1,000 ml in 1,000 mls @ 125 mls/hr 12/28/18 15:00 12/29/18 05:00 Lactated Ringers Solution IV 125 mls/hr ASDIR [facility] Administration Ibuprofen 600 mg 12/28/18 15:01 Motrin - PO Q4H PRN PAIN LEVEL 1-5 Miscellaneous 1 each 12/28/18 22:00 Lidoderm Patch Removal MC DAILY@2200 [facility] Ondansetron HCl 4 mg 12/28/18 15:00 Zofran Injection IVPUSH Q6H PRN NAUSEA AND/OR VOMITING Ondansetron HCl 4 mg 12/28/18 15:01 Zofran Injection IVPUSH Q4H PRN NAUSEA Pantoprazole Sodium 40 mg 12/29/18 10:00 12/29/18 09:25 Protonix Iv IVPUSH 40 mg DAILY [facility] Administration Pregabalin 100 mg 12/28/18 22:00 12/29/18 09:25 Lyrica - PO 100 mg BID [facility] Administration ASSESSMENT/PLAN: 68 y/o lady with h/o depression who came in with back pain after a mechanical fall. She was found to have Right L1, L2 transverse process Fx and Cervical cord compression on imaging Acute cervical disk herniation with cord compression POD #7 heighten pain sensation in 2&3rd b/l fingers improved. OOB as tolerated and up to chair for meals PT/OT C-collar 23 hrs/day pain regimen on lido patch, oxy, and tylenol L4-5 Lumbar disc herniation POD1 s/p L3-L5 lami/fusion Per surgical PA pt needed in monitored bed since she received duramorph plan to transfer to regular bed this afternoon. oob with PT pain management per anesthesia diet advanced as tolerated thompson will be D/C when able to ambulate Constipation pt has BMs cont bowel regimen Urinary retention resolved since surgery Depression cont Cymbalta. DVT PPX Scds and Hep subQ Visit type - Emergency Visit Emergency Visit: Yes ED Registration Date: 12/18/18 Care time: The patient presented to the Emergency Department on the above date and was hospitalized for further evaluation of their emergent condition. - New Patient This patient is new to me today: No - Critical Care Critical Care patient: Yes Total Critical Care Time (in minutes): 35 Critical Care Statement: The care of this patient involved high complexity decision making to prevent further life threatening deterioration of the patient 's condition and/or to evaluate & treat vital organ system(s) failure or risk of failure. - Discharge Referral Referred to [facility] Med P.C.: No ATTENDING PHYSICIAN STATEMENT I saw and evaluated the patient. I reviewed the resident's note and discussed the case with the resident. I agree with the resident's findings and plan as documented. SUBJECTIVE: OBJECTIVE: ASSESSMENT AND PLAN:
[2018-12-29] MEDS ORDERED: BISACODYL 10 MG SUPP.RECT PR PRN (15:50)
[2018-12-29] MEDS ORDERED: BENZOCAINE/MENTH/CETYLPYRD CL 1 EACH LOZENGE MM PRN (15:50)
[2018-12-29] MEDS ORDERED: IBUPROFEN 600 MG TABLET (FP) PO PRN (15:50)
[2018-12-29] MEDS ORDERED: ACETAMINOPHEN 325 MG TABLET (FP) PO PRN (15:50)
--- NOTE | 2018-12-29 20:22 | PN ---
Teaching Attending Note Name of Resident: Kanika Crespo ATTENDING PHYSICIAN STATEMENT I saw and evaluated the patient. I reviewed the resident's note and discussed the case with the resident. I agree with the resident's findings and plan as documented. SUBJECTIVE: Patient is in ICU s/p Laminectomy OBJECTIVE: Vital Signs Temperature 97.8 F 12/29/18 16:39 Pulse Rate 92 H 12/29/18 18:28 Respiratory Rate 10 12/29/18 18:28 Blood Pressure 92/73 12/29/18 18:28 O2 Sat by Pulse Oximetry (%) 99 12/29/18 09:15 GENERAL: The patient is awake, alert, and fully oriented, in no acute distress. HEAD: Normal with no signs of trauma. EYES: PERRL, extraocular movements intact, sclera anicteric, conjunctiva clear. ENT: Ears normal, oropharynx clear without exudates, moist mucous membranes. NECK: Trachea midline, full range of motion, supple. LUNGS: Breath sounds equal, clear to auscultation bilaterally, no wheezes, no crackles, no accessory muscle use. HEART: Regular rate and rhythm, S1, S2 without murmur, rub or gallop. ABDOMEN: Soft, nontender, nondistended, normoactive bowel sounds, no guarding, no rebound, no hepatosplenomegaly, no masses. EXTREMITIES: 2+ pulses, warm, well-perfused. L 4/5 highway inspector strength, 5/5 highway inspector on right. ROM intact in L index finger, limited flexion and pain. NEUROLOGICAL: Cranial nerves II through XII grossly intact. gait not observed, Anterior neck dressing SKIN: Warm, dry, normal turgor, no rashes or lesions noted CBCD WBC 10.1 K/mm3 (4.0-10.0) H 12/29/18 05:40 RBC 3.18 M/mm3 (3.60-5.2) L 12/29/18 05:40 Hgb 9.6 GM/dL (10.7-15.3) L 12/29/18 05:40 Hct 28.5 % (32.4-45.2) L D 12/29/18 05:40 MCV 89.8 fl (80-96) 12/29/18 05:40 MCHC 33.8 g/dl (32.0-36.0) 12/29/18 05:40 RDW 13.4 % (11.6-15.6) 12/29/18 05:40 Plt Count 167 K/MM3 (134-434) D 12/29/18 05:40 MPV 9.7 fl (7.5-11.1) 12/29/18 05:40 CMP Sodium 138 mmol/L (136-145) 12/29/18 05:40 Potassium 4.0 mmol/L (3.5-5.1) 12/29/18 05:40 Chloride 100 mmol/L (98-107) 12/29/18 05:40 Carbon Dioxide 33 mmol/L (21-32) H 12/29/18 05:40 Anion Gap 5 MMOL/L (8-16) L 12/29/18 05:40 BUN 12.7 mg/dL (7-18) 12/29/18 05:40 Creatinine 0.7 mg/dL (0.55-1.3) 12/29/18 05:40 Random Glucose 88 mg/dL (74-106) 12/29/18 05:40 Calcium 8.0 mg/dL (8.5-10.1) L 12/29/18 05:40 Total Bilirubin 0.5 mg/dL (0.2-1) 12/18/18 05:40 AST 19 U/L (15-37) 12/18/18 05:40 ALT 26 U/L (13-61) 12/18/18 05:40 Alkaline Phosphatase 72 U/L (45-117) 12/18/18 05:40 Total Protein 6.7 g/dl (6.4-8.2) 12/18/18 05:40 Albumin 3.6 g/dl (3.4-5.0) 12/18/18 05:40 Current Medications Generic Name Dose Route Start Last Admin Trade Name Freq PRN Reason Stop Dose Admin Acetaminophen 650 mg 12/29/18 15:50 12/29/18 16:40 Tylenol - PO 650 mg Q4H PRN Administration FEVER Benzocaine/Menthol 1 each 12/29/18 15:50 Cepacol Lozenge - MM Q4H PRN SORE THROAT Bisacodyl 10 mg 12/29/18 15:50 Dulcolax Suppository - [place] DAILY PRN CONSTIPATION Calcium Carbonate/Cholecalciferol 1 tab 12/29/18 22:00 Os-Guillermo 500+D - PO BID [facility] Chlorhexidine Gluconate 1 applic 12/29/18 22:00 Hibiclens For Decolonization - TP HS [facility] Docusate Sodium 100 mg 12/29/18 22:00 Colace - PO TID [facility] Duloxetine HCl 30 mg 12/30/18 10:00 Cymbalta - PO DAILY [facility] Folic Acid 1 mg 12/30/18 10:00 Folic Acid - PO DAILY [facility] Heparin Sodium (Porcine) 5,000 unit 12/29/18 22:00 Heparin - SQ Q8H [facility] Hydromorphone HCl 10 mg 12/29/18 15:50 12/29/18 16:33 Hydromorphone 10 Mg/50 Ml-Ns STITCHER SPECIAL MACHINE 12/30/18 07:59 Not Given STITCHER SPECIAL MACHINE [facility] Protocol Cefazolin Sodium 1 gm/ 50 mls @ 100 mls/hr 12/29/18 19:00 12/29/18 18:26 Dextrose IVPB 100 mls/hr Q8H [facility] Administration Lactated Ringer's 1,000 ml in 1,000 mls @ 125 mls/hr 12/29/18 15:50 12/29/18 16:33 Lactated Ringers Solution IV Not Given ASDIR [facility] Ibuprofen 600 mg 12/29/18 15:50 Motrin - PO Q4H PRN PAIN LEVEL 1-5 Pantoprazole Sodium 40 mg 12/30/18 10:00 Protonix Iv IVPUSH DAILY [facility] Pregabalin 100 mg 12/29/18 22:00 Lyrica - PO BID [facility] Home Medications Medication Instructions Recorded Ascorbate Calcium [Vitamin C] 500 mg PO DAILY 12/18/18 Duloxetine HCl [Cymbalta -] 30 mg PO DAILY 12/18/18 Ergocalciferol (Vitamin D2) 50,000 unit PO WEEKLY 12/18/18 [Vitamin D2] Vitamin B Complex [B Complex] 1 tablet PO DAILY 12/18/18 ASSESSMENT AND PLAN: 68 y/o lady with h/o depression who came in with back pain after a mechanical fall. She was found to have Right L1, L2 transverse process Fx #POD #1 s/p L3-L5 laminectomies, decompression and fusion with pedicle screws by Dr. Russell # POD 8 s/p C6 corpectomy due to Spondylosis at C56 and C67 with acute disc protrusions , continue wearing neck collar. # Urinary retention : could be due to narcotics and immobilization # Depression: cont Cymbalta. DVT PX: Scds; heparin sq. rehab once stable
[2018-12-29] MEDS ORDERED: CHLORHEXIDINE GLUCONATE 4% CLEANSER FOR DECOLONIZATION TP SCH (22:00)
[2018-12-29] MEDS: CHLORHEXIDINE GLUCONATE 4% CLEANSER FOR DECOLONIZATION TP SCH (22:00)
[2018-12-30] MEDS ORDERED: ceFAZolin SODIUM 1 GM VIAL ONE ×4 (04:21→21:37)
[2018-12-30] MEDS ORDERED: DEXTROSE 5%-WATER - 50 ML IVPB ONE ×3 (04:21→21:37)
[2018-12-30] MEDS: CEFAZOLIN 1 GM in DEXTROSE 5%-WATER - 50 ML IVPB SCH ×3 (04:27→21:41)
[2018-12-30] MEDS: LACTATED RINGERS SOLUTION 1,000 ML/1,000 ML INFUS.BAG IV SCH ×2 (05:00→16:03)
[2018-12-30] MEDS: HEPARIN NA (PORCINE) 5,000 UNITS/ML 1ML VIAL SQ SCH ×3 (06:14→21:41)
[2018-12-30] MEDS: DOCUSATE SODIUM 100 MG CAPSULE (FP) PO SCH (06:14)
[2018-12-30 06:59] LABS: BASO % 0.2 % (0-2.0); EOS % 1.7 % (0-4.5); HEMATOCRIT 25.7 % (32.4-45.2); HEMOGLOBIN 8.8 GM/dL (10.7-15.3); MCH 30.8 pg (25.7-33.7); MCHC 34.1 g/dl (32.0-36.0); MEAN CELL VOLUME 90.2 fl (80-96); MEAN PLT VOLUME 9.5 fl (7.5-11.1); MONO % 7.9 % (3.8-10.2); NEUT % 81.2 % (42.8-82.8); PLATELET COUNT 142 K/MM3 (134-434); RBC 2.85 M/mm3 (3.60-5.2); RDW 13.7 % (11.6-15.6); WHITE BLOOD COUNT 10.4 K/mm3 (4.0-10.0)
[2018-12-30 07:12] LABS: BLOOD UREA NITROGEN 11.8 mg/dL (7-18); CALCIUM 7.9 mg/dL (8.5-10.1); CREATININE 0.6 mg/dL (0.55-1.3); POTASSIUM 3.9 mmol/L (3.5-5.1)
--- NOTE | 2018-12-30 08:11 | PN ---
Progress Note (short form) - Note Progress Note: 68yo F s/p C6 corpectomy POD 8 and L3-L5 lami/fusion POD 2, pt seen and examined in Tele bed. Pt complaining of some lower back pain. Pt denies fever, chills, n/v, weakness in extremities. Last Vital Signs Temp Pulse Resp BP Pulse Ox 98.4 F 82 16 103/74 100 12/30/18 06:00 12/30/18 06:00 12/30/18 06:00 12/30/18 06:00 12/30/18 06:00 CBC, BMP 12/30/18 05:32 12/30/18 05:32 PE; Gen: A&O x3 Resp: breathing comfortably Neck: anterior dressing in place clean no drainage, C-collar in place Back: lumber dressing in place clean. Drain present with serosanguinous drainage. Ext: no weakness or numbness, no edema Problem List - Problems (1) Lumbar spondylosis Assessment/Plan: Plan -pt can be transfer to regular bed -oob with PT -TLSO brace when out of bed -pain management per anesthesia -dvt ppx Code(s): M47.816 - SPONDYLOSIS W/O MYELOPATHY OR RADICULOPATHY, LUMBAR REGION
--- NOTE | 2018-12-30 08:53 | PN ---
Progress Note (short form) - Note Progress Note: Post op day#2.S/P L3-5 decompression with fusion under GA uneventful.P84,BP 118/ 68 and Spo2 99 on O2 3L.Patient stable and c/o pain score of 7-8/10 on Dilaudid CONTINGENTS SUPERVISOR.Will add Ofirmev and Neurontin and will f/u.
[2018-12-30] MEDS ORDERED: ACETAMINOPHEN 1000 MG/100 ML VIAL (NON FORMULARY) IVPB PRN (08:54)
[2018-12-30] MEDS ORDERED: DOCUSATE SODIUM 100 MG CAPSULE (FP) PO SCH ×2 (09:36→16:12)
[2018-12-30] MEDS: CALCIUM 500MG/VIT-D 200 UNITS COMBO TABLET (FP) PO SCH ×2 (09:37→21:42)
[2018-12-30] MEDS: FOLIC ACID 1 MG TABLET (FP) PO SCH (09:37)
[2018-12-30] MEDS: DULoxetine HCL 30 MG CAPSULE.DR PO SCH (09:38)
[2018-12-30] MEDS: GABAPENTIN 300 MG CAPSULE (FP) PO SCH ×2 (09:38→21:41)
[2018-12-30] MEDS: PANTOPRAZOLE SODIUM 40 MG VIAL IVPUSH SCH (09:38)
[2018-12-30] MEDS: PREGABALIN 100 MG CAPSULE PO SCH ×2 (09:38→21:42)
[2018-12-30] MEDS: BISACODYL 10 MG SUPP.RECT PR SCH (10:01)
[2018-12-30] MEDS: POLYETHYLENE GLYCOL 3350 119 GM BTL PO SCH ×2 (10:01→21:55)
--- NOTE | 2018-12-30 13:42 | PN ---
Physical Exam: SUBJECTIVE: Patient seen and examined. Pt c/o pain but 7/10 but improved from yesterday. Pt had urine retention o/n thompson is assiting drained over 900 CC s/p. OBJECTIVE: Vital Signs Period Temp Pulse Resp BP Sys/Ram Pulse Ox Last 24 Hr 97.8 F-98.4 F 78-110 10- 86-130/69-82 99-100 GENERAL: The patient is awake, alert, and fully oriented, in mod distress. HEAD: Normal with no signs of trauma. EYES: PERRL, extraocular movements intact, sclera anicteric, conjunctiva clear. No ptosis. ENT: oropharynx clear without exudates, moist mucous membranes. NECK: Trachea midline, with surgical dressing and hard collar LUNGS: Breath sounds equal, clear to auscultation bilaterally, no wheezes, no crackles, no accessory muscle use. HEART: Regular rate and rhythm, S1, S2 without murmur, rub or gallop. ABDOMEN: Soft, suprapubic, nondistended, normoactive bowel sounds, no guarding, no rebound, no hepatosplenomegaly, no masses. EXTREMITIES: 2+ pulses, warm, well-perfused, no edema. NEUROLOGICAL: Cranial nerves II through XII grossly intact. Normal speech, gait not observed. L 5/5 fish straightener strength, 5/5 fish straightener on right. Hand and fingers well perfused. LE strength 5/5 and sensation also intact Laboratory Results - last 24 hr 12/30/18 12/30/18 05:32 05:32 WBC 10.4 H RBC 2.85 L Hgb 8.8 L Hct 25.7 L MCV 90.2 MCH 30.8 MCHC 34.1 RDW 13.7 Plt Count 142 MPV 9.5 Absolute Neuts (auto) 8.5 H Neutrophils % 81.2 Lymphocytes % 9.0 Monocytes % 7.9 D Eosinophils % 1.7 D Basophils % 0.2 Nucleated RBC % 0 Sodium 139 Potassium 3.9 Chloride 100 Carbon Dioxide 33 H Anion Gap 5 L BUN 11.8 Creatinine 0.6 Est GFR (CKD-EPI)AfAm 108.55 Est GFR (CKD-EPI)NonAf 93.66 Random Glucose 101 Calcium 7.9 L Active Medications Generic Name Dose Route Start Last Admin Trade Name Freq PRN Reason Stop Dose Admin Acetaminophen 650 mg 12/29/18 15:50 12/29/18 16:40 Tylenol - PO 650 mg Q4H PRN Administration FEVER Acetaminophen 1,000 mg 12/30/18 08:54 Ofirmev Injection - IVPB Q6H PRN PAIN LEVEL 7 - 10 Benzocaine/Menthol 1 each 12/29/18 15:50 Cepacol Lozenge - MM Q4H PRN SORE THROAT Bisacodyl 10 mg 12/30/18 10:00 12/30/18 10:01 Dulcolax Suppository - NM 10 mg DAILY SAMI Administration Calcium Carbonate/Cholecalciferol 1 tab 12/29/18 22:00 12/30/18 09:37 Os-Guillermo 500+D - PO 1 tab BID SAMI Administration Chlorhexidine Gluconate 1 applic 12/29/18 22:00 12/29/18 22:00 Hibiclens For Decolonization - TP 1 applic HS SAMI Administration Docusate Sodium 300 mg 12/30/18 09:36 Colace - PO TID SAMI Duloxetine HCl 30 mg 12/30/18 10:00 12/30/18 09:38 Cymbalta - PO 30 mg DAILY SAMI Administration Folic Acid 1 mg 12/30/18 10:00 12/30/18 09:37 Folic Acid - PO 1 mg DAILY SAMI Administration Gabapentin 300 mg 12/30/18 10:00 12/30/18 09:38 Neurontin - PO 300 mg BID SAMI Administration Heparin Sodium (Porcine) 5,000 unit 12/29/18 22:00 12/30/18 06:14 Heparin - SQ 5,000 unit Q8H SAMI Administration Cefazolin Sodium 1 gm/ 50 mls @ 100 mls/hr 12/29/18 19:00 12/30/18 04:27 Dextrose IVPB 100 mls/hr Q8H SAMI Administration Lactated Ringer's 1,000 ml in 1,000 mls @ 125 mls/hr 12/29/18 15:50 12/30/18 05:00 Lactated Ringers Solution IV 125 mls/hr ASDIR SAMI Administration Ibuprofen 600 mg 12/29/18 15:50 Motrin - PO Q4H PRN PAIN LEVEL 1-5 Pantoprazole Sodium 40 mg 12/30/18 10:00 12/30/18 09:38 Protonix Iv IVPUSH 40 mg DAILY SAMI Administration Polyethylene Glycol 17 gm 12/30/18 10:00 12/30/18 10:01 Miralax (For Daily Use) - PO 17 gm BID SAMI Administration Pregabalin 100 mg 12/29/18 22:00 12/30/18 09:38 Lyrica - PO 100 mg BID SAMI Administration Senna 2 tab 12/30/18 22:00 Senna - PO HS SAMI ASSESSMENT/PLAN: 68 y/o lady with h/o depression who came in with back pain after a mechanical fall. She was found to have Right L1, L2 transverse process Fx and Cervical cord compression on imaging Acute cervical disk herniation with cord compression POD #8 heighten pain sensation in 2&3rd b/l fingers resolved. OOB as tolerated PT/OT- C-collar 23 hrs/day pain control current with YARD ASSISTANT, ofirmev and neurontin L4-5 Lumbar disc herniation POD2 s/p L3-L5 lami/fusion Per surgical PA pt needed in monitored bed since she received duramorph pending transfer to regular bed oob with PT- pt only ambulated to 5 ft s/p surgery pain management per anesthesia diet advanced as tolerated thompson will be D/C when able to ambulate ofirmev and neurontin added to YARD ASSISTANT due to continued pain Per surgery, oob with PT TLSO brace when out of bed Constipation No BM since lumbar surgery bowel regimen chsnged to miralax, colace 200, and senna Urinary retention resolved initially after cervical surgery but since recent surgery pt had retention requiring straight cath so thompson back in Depression cont Cymbalta. DVT PPX Scds and Hep subQ pt can be transfer to regular bed -oob with PT -TLSO brace when out of bed Visit type - Emergency Visit Emergency Visit: Yes ED Registration Date: 12/18/18 Care time: The patient presented to the Emergency Department on the above date and was hospitalized for further evaluation of their emergent condition. - New Patient This patient is new to me today: No - Critical Care Critical Care patient: Yes Total Critical Care Time (in minutes): 35 Critical Care Statement: The care of this patient involved high complexity decision making to prevent further life threatening deterioration of the patient 's condition and/or to evaluate & treat vital organ system(s) failure or risk of failure. - Discharge Referral Referred to [facility] No ATTENDING PHYSICIAN STATEMENT I saw and evaluated the patient. I reviewed the resident's note and discussed the case with the resident. I agree with the resident's findings and plan as documented. SUBJECTIVE: OBJECTIVE: ASSESSMENT AND PLAN:
--- NOTE | 2018-12-30 16:24 | PN ---
Teaching Attending Note Name of Resident: Acosta Fitch ATTENDING PHYSICIAN STATEMENT I saw and evaluated the patient. I reviewed the resident's note and discussed the case with the resident. I agree with the resident's findings and plan as documented. SUBJECTIVE: has neck and lower back pain. constipation OBJECTIVE: NAD. MMM CV: RRR, no MRG. Lungs: CTAB Abd: soft, NT, ND, NL BS. Thompson in Neuro Strength 5/5 in hip flexion, knee extension and flexion, and ankle dorsiflexion and plantar flexion b/l. strength 5/5 in shoulder shrug, biceps, triceps, and hand furniture removalist. Nl sensation to light touch on both sides. Knee jerk 1+ , biceps 1+ , b/l ASSESSMENT AND PLAN: 68 y/o lady with h/o depression who came in with back pain after a mechanical fall. She was found to have Right L1, L2 transverse process Fx with cervical myelopathy and L4-5 disk herniation 1- cervical meylopathy s/p C6 corpectomy 2- L4-5 disk herniation s/p L3-5 laminectomies 3- urinary retention 4- depression 5- constipation plan : - cont painmanagement - add miralax, and senna. enemas or suppositories as needed - IVF for today, will assess tomorrow - monitor BP - cont thompson. failed voiding trial - PT
[2018-12-30] MEDS ORDERED: oxyCODONE HCL 5 MG TABLET PO PRN (16:42)
[2018-12-30] MEDS: oxyCODONE HCL 5 MG TABLET PO PRN (18:00)
[2018-12-30] MEDS: CHLORHEXIDINE GLUCONATE 4% CLEANSER FOR DECOLONIZATION TP SCH (21:42)
[2018-12-30] MEDS ORDERED: SENNOSIDES 8.6MG TABLET (FP) PO SCH (22:00)
[2018-12-31] MEDS: CEFAZOLIN 1 GM in DEXTROSE 5%-WATER - 50 ML IVPB SCH ×2 (03:58→04:02)
[2018-12-31] MEDS ORDERED: DEXTROSE 5%-WATER - 50 ML IVPB ONE (04:01)
[2018-12-31] MEDS ORDERED: ceFAZolin SODIUM 1 GM VIAL ONE (04:01)
[2018-12-31] MEDS: HEPARIN NA (PORCINE) 5,000 UNITS/ML 1ML VIAL SQ SCH ×2 (06:53→14:58)
--- NOTE | 2018-12-31 08:05 | PN ---
Progress Note (short form) - Note Progress Note: S/p C6 corpectomy on 12/22 and L3-L5 lami/fusion on 12/28 Pt seen and examined. Reports she is doing "okay". Pain is controlled. Was oob with PT yesterday, pt noted to have some buckling in knees with ambulation with PT. Thompson reinserted overnight due to BS >600ml and pt only able to void 50ml in bed jaramillo. Tolerating PO, no BM (cannot recall last BM) however on an increased stool regimen since yesterday. Denies motoe/sensory deficits, cp/sob, n/v. Vital Signs Temp 97.5 F L 12/31/18 05:42 Pulse 73 12/31/18 05:42 Resp 18 12/31/18 05:42 BP 94/53 L 12/31/18 05:42 Pulse Ox 100 12/30/18 21:18 Intake & Output 12/30/18 12/30/18 12/31/18 11:59 23:59 11:59 Intake Total 2210 865 Output Total 60 2650 Balance 2150 -1785 Intake: IV 1500 375 LACTATED RINGERS SOLUTION 1500 1,000 ml In 1,000 ml @ 125 mls/hr IV ASDIR SAMI Rx#:[id number] LACTATED RINGERS SOLUTION 375 1,000 ml In 1,000 ml @ 125 mls/hr IV ASDIR SAMI Rx#:[id number] IVPB 50 50 Oral 660 440 Output: Drainage 60 Posterior Back 60 Urine 2650 Void 2650 Other: Voiding Method Indwelling Catheter Indwelling Catheter # Unmeasured Voids Void 2 Bowel Movement No CBC, BMP 12/30/18 05:32 12/30/18 05:32 Gen: awake, alert, nad Resp: Unlabored on RA Neck: collar in place, dressing c/d/i with no surrounding erythema or ecchymosis /edema. Speech clear, breathing wnl Back: Dressing c/d/i no surrounding erythema or ecchymosis. Neuro: golf superintendent strength strong and equal b/l ue's, b/l biceps/triceps 5/5, silt b/ l ue's. B/L le's 5/5 dorsi/plantarflexion, silt b/l les. A/P: 68 y/o latvian speaking F admitted on 12/17 after presenting s/p fall at home, pt found to have spondylosis at C56 and C67 with acute disc protrusions, now S/p C6 corpectomy on 12/22 and L3-L5 lami/fusion on 12/28. afebrile, vss, labs relatively stable Neuro exam intact -Continue pain regimen as ordered (Oxy 5/10mg q4hrs prn, Ofirmev 1g q6hrs prn, gabapentin 300mg bid) -No NSAIDS -Bowel regimen as ordered -Incentive spirometry encouraged -OOB with PT -Diet as tolerated -dvt prophylaxis with heparin 5000units tid, b.l scds and early ambulation -Leave thompson in place for now, will discuss plan with attending message sent to Dr perez regarding above
[2018-12-31 08:38] LABS: BASO % 0.3 % (0-2.0); EOS % 1.2 % (0-4.5); HEMATOCRIT 24.6 % (32.4-45.2); HEMOGLOBIN 8.5 GM/dL (10.7-15.3); LYMPH % 8.5 % (8-40); MCH 30.7 pg (25.7-33.7); MCHC 34.3 g/dl (32.0-36.0); MEAN CELL VOLUME 89.5 fl (80-96); MEAN PLT VOLUME 9.4 fl (7.5-11.1); MONO % 6.9 % (3.8-10.2); NEUT % 83.1 % (42.8-82.8); PLATELET COUNT 146 K/MM3 (134-434); RBC 2.75 M/mm3 (3.60-5.2); RDW 13.5 % (11.6-15.6); WHITE BLOOD COUNT 9.3 K/mm3 (4.0-10.0)
--- NOTE | 2018-12-31 09:21 | PN ---
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
[2018-12-31] MEDS: DULoxetine HCL 30 MG CAPSULE.DR PO SCH (10:44)
[2018-12-31] MEDS: PANTOPRAZOLE SODIUM 40 MG VIAL IVPUSH SCH (10:44)
[2018-12-31] MEDS: GABAPENTIN 300 MG CAPSULE (FP) PO SCH (10:44)
[2018-12-31] MEDS: CALCIUM 500MG/VIT-D 200 UNITS COMBO TABLET (FP) PO SCH (10:45)
[2018-12-31] MEDS: BISACODYL 10 MG SUPP.RECT PR SCH (10:45)
[2018-12-31] MEDS: FOLIC ACID 1 MG TABLET (FP) PO SCH (10:45)
[2018-12-31] MEDS: POLYETHYLENE GLYCOL 3350 119 GM BTL PO SCH (10:46)
[2018-12-31] MEDS: oxyCODONE HCL 5 MG TABLET PO PRN (14:57)
[2018-12-31 15:06] VITALS: BP 124/70; PULSE 83; TEMP 98.1
--- NOTE | 2018-12-31 15:11 | PN ---
Teaching Attending Note Name of Resident: Acosta Fitch ATTENDING PHYSICIAN STATEMENT I saw and evaluated the patient. I reviewed the resident's note and discussed the case with the resident. I agree with the resident's findings and plan as documented. 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 back pain is much better today . has tingling in legs charles R . OBJECTIVE: NAD. MMM CV: RRR, no MRG. Lungs: CTAB Abd: soft, NT, ND, NL BS. Thompson in Neuro Strength 5/5 in hip flexion, knee extension and flexion, and ankle dorsiflexion and plantar flexion b/l. strength 5/5 in shoulder shrug, biceps, triceps, and hand carboy filler. Nl sensation to light touch on both sides. Knee jerk 1+ , biceps 1+ , b/l ASSESSMENT AND PLAN: 68 y/o lady with h/o depression who came in with back pain after a mechanical fall. She was found to have Right L1, L2 transverse process Fx with cervical myelopathy and L4-5 disk herniation 1- Cervical meylopathy s/p C6 corpectomy 2- L4-5 disk herniation s/p L3-5 laminectomies 3- urinary retention 4- Depression 5- constipation plan : - NAVYA young removed frm lumbar area - dc thompson, could void - cont pain management with neurontin, lyrica, and oxy after dc - bowel regimen - keep wounds dry , and if soiled then can change with dry clean gauze. - keep collar on 23/24 hr . - TLSO brace when ambulating dc to rehab. case d/w her and with dr. Russell
--- NOTE | 2018-12-31 16:08 | DS ---
Physical Exam: SUBJECTIVE: Patient seen and examined. No new complaints. Pt. endorses decreased pain today. Pt. endorses tingling in legs but not worse than yesterday. OBJECTIVE: Vital Signs Period Temp Pulse Resp BP Sys/Ram Pulse Ox Last 24 Hr 97.5 F-99 F 73-88 16-20 91-124/53-70 100 PHYSICAL EXAM GENERAL: The patient is awake, alert, and fully oriented, in no acute distress. HEAD: Normal with no signs of trauma. EYES: PERRL, extraocular movements intact, sclera anicteric, conjunctiva clear. ENT: Ears normal, nares patent, oropharynx clear without exudates, moist mucous membranes. NECK: Trachea midline, full range of motion, supple. LUNGS: Breath sounds equal, clear to auscultation bilaterally, no wheezes, no crackles, no accessory muscle use. HEART: Regular rate and rhythm, S1, S2 without murmur, rub or gallop. ABDOMEN: Soft, nontender, nondistended, normoactive bowel sounds, no guarding, no rebound, Thompson in place EXTREMITIES: 2+ dorsal pedal pulses, warm, well-perfused, no edema, 5/5 muscle strength throughout all muscle groups NEUROLOGICAL: Cranial nerves II through XII grossly intact. Normal speech, gait not observed. PSYCH: Normal mood, normal affect. SKIN: Warm, dry, normal turgor, no rashes or lesions noted. LABS Laboratory Results - last 24 hr 12/31/18 07:30 WBC 9.3 RBC 2.75 L Hgb 8.5 L Hct 24.6 L MCV 89.5 MCH 30.7 MCHC 34.3 RDW 13.5 Plt Count 146 MPV 9.4 Absolute Neuts (auto) 7.7 Neutrophils % 83.1 H Lymphocytes % 8.5 Monocytes % 6.9 Eosinophils % 1.2 Basophils % 0.3 Nucleated RBC % 0 HOSPITAL COURSE: Date of Admission:12/18/18 Date of Discharge: 12/31/18 Pt. is a 68 y.o. F presenting for lower back pain after a mechanical fall. During hospital course Pt. described numbness of her right arm and decision was made to prioritize cervical correction as Pt. did not have any lower extremity, urinary or bowel neurological deficits. Pelvic CT was negative, Thoracic MRI was negative for acute bone pathology but did show a large liver lesion in the right hepatic lobe suspicious for hemangioma; Pt. was found to have a L1 and L2 transverse process fracture on CT scan and MRI with disc bulge and mass effect on left L3 nerve root large herniation in L4-L5 with obliteration of L5 nerve roots. Moderate to severe right neural foramen narrowing was found on Cervical MRI of C5-C7 and moderate to severe left neural foramen stenosis of C6-C7 with central spinal canal stenosis. Pelvic CT Scan was negative for acute pathology. Pt. first had ACDF of C5-C7 without complication and then 6 days later had Lumbar discectomy and fusion of L3-L5 with post-op complication of urinary retention. Pt. ultimately was able to void and thompson was discontinued prior to discharge. Consults to Critical Care, Orthopedic and Neurosurgery (Dr. Patrick ) were appreciated during this hospital stay. Physical therapy, appreciated, evaluated patient and she was found to benefit from rehabilitation at a SNF. Medication adjustments, follow up and dressing care were provided as detailed below. Hospital course discussed and agreed upon with Pt. and medical staff. Discharge Summary Problems reviewed: Yes Reason For Visit: FRACTURE OF LUMBAR VERTEBRA Current Active Problems Lumbar spondylosis (Acute) Lumbar vertebral fracture (Acute) S/P cervical spinal fusion (Acute) Condition: Improved - Instructions Diet, Activity, Other Instructions: You came into the ED because of back pain after a fall. We took some pictures and scans of your back and neck which showed concerns at the time for acute fracture in your back, compression of spinal cord in your neck and lower back. you had surgery on both parts Medications: Please resume all of your home medications. Please take the pain medications as prescribed Follow up: Please follow up with Dr Russell neurosurgery within one week Please follow up with your PCP within one week Post Operative Instructions Physical Activity Resume your normal everyday activity as tolerated. No heavy lifting or exercise until seen by your surgeon. You may walk unlimited amounts and climb stairs. You may resume driving the car when you feel safe and comfortable behind the wheel and you are no longer wearing your brace. Do not operate a vehicle while taking narcotic medication. Brace Wear TLSO Brace whenever out of bed. May remove to sleep and shower. Also, wear surgical collar 23 hr/day. Remove to shower only. Wound Care Keep your incision clean, dry and covered at all times. Apply an occlusive dressing (Saran wrap or Tegaderm) when showering to avoid getting your incision wet. If soiled or wet, then change into a dry clean dressing. Do not submerge incision or apply ointments or creams. The harish will be removed in the office in 10-14 days post-op. Diet There are no dietary restrictions. Eat healthy, high-fiber foods. Drink 6-8 glasses of liquid each day. This will assist in keeping your bowels regular. Pain Management You may take Tylenol or acetaminophen. Any pain prescription medication ordered should be taken as prescribed for moderate to severe pain. Avoid any ibuprofen (Motrin, Advil, Aleve, Toradol, etc) for 3 months unless otherwise discussed with your surgeon. Call Dr Russell for any of the following: Severe pain not relieved by medication Fever of 101 or higher Excessive bleeding or drainage on dressing Inability to urinate Any chest pain or shortness of breath, seek Emergency Care. Call the office to confirm a post-operative appointment for 2-3 weeks post-op Misael Patrick MD [facility] [address] [place] [address] [place] [address] Referrals: Misael Patrick MD, [facility] [Staff Physician] - 1 Week ON STAFF,NOT [Non Staff, Medical] - 1 Week Disposition: ASSISTED FACILITY - Home Medications Comprehensive Discharge Medication List: Ambulatory Orders Ascorbate Calcium [Vitamin C] 500 mg PO DAILY 12/18/18 Duloxetine HCl [Cymbalta -] 30 mg PO DAILY 12/18/18 Ergocalciferol (Vitamin D2) [Vitamin D2] 50,000 unit PO WEEKLY 12/18/18 Vitamin B Complex [B Complex] 1 tablet PO DAILY 12/18/18 Docusate Sodium [Colace -] 200 mg PO TID #21 capsule 12/31/18 Gabapentin [Neurontin -] 300 mg PO BID #14 capsule 12/31/18 Pregabalin [Lyrica -] 100 mg PO BID #14 capsule MDD 200 12/31/18 Sennosides [Senna -] 2 tab PO HS #7 tablet 12/31/18 oxyCODONE HCL [Roxicodone -] 5 mg PO Q8H #21 tablet MDD 15 12/31/18 - Discharge Referral Referred to [facility] No ATTENDING PHYSICIAN STATEMENT I saw and evaluated the patient. I reviewed the resident's note and discussed the case with the resident. I agree with the resident's findings and plan as documented. SUBJECTIVE: OBJECTIVE: ASSESSMENT AND PLAN:
[2018-12-31] MEDS: LACTATED RINGERS SOLUTION 1,000 ML/1,000 ML INFUS.BAG IV SCH (17:13)
== END 2018-12-31 18:45 | DRG 454 ==
LOC: JER 23:01 → JERBED 12-18 05:06 → J7W 12-18 08:52 → JSAMEDAYSX 12-22 17:59 → J8W 12-22 18:41 → JSAMEDAYSX 12-28 15:16 → J2W 12-28 20:22 → J6S 12-30 23:45
PROVIDERS: ADMIT Internal Medicine; ATTEND Internal Medicine
PROC: 0RG20A0 Fusion of 2 or more Cervical Vertebral Joints with Interbody Fusion Device, Anterior Approach, Anterior Column, Open Approach (ICD-10-PCS; 2018-12-22)
PROC: 00NW0ZZ Release Cervical Spinal Cord, Open Approach (ICD-10-PCS; 2018-12-22)
PROC: 01N10ZZ Release Cervical Nerve, Open Approach (ICD-10-PCS; 2018-12-22)
PROC: B01BZZZ Fluoroscopy of Spinal Cord (ICD-10-PCS; 2018-12-22)
PROC: 0SG1071 Fusion of 2 or more Lumbar Vertebral Joints with Autologous Tissue Substitute, Posterior Approach, Posterior Column, Open Approach (ICD-10-PCS; 2018-12-28)
PROC: 0SB20ZZ Excision of Lumbar Vertebral Disc, Open Approach (ICD-10-PCS; 2018-12-28)
PROC: 00NY0ZZ Release Lumbar Spinal Cord, Open Approach (ICD-10-PCS; 2018-12-28)
PROC: 0JX70ZZ Transfer Back Subcutaneous Tissue and Fascia, Open Approach (ICD-10-PCS; 2018-12-28)
PROC: 0RB30ZZ Excision of Cervical Vertebral Disc, Open Approach (ICD-10-PCS; 2018-12-28)
PROC: 0SG10AJ Fusion of 2 or more Lumbar Vertebral Joints with Interbody Fusion Device, Posterior Approach, Anterior Column, Open Approach (ICD-10-PCS; principal; 2018-12-28 08:00)
DX: M47.22 Other spondylosis with radiculopathy, cervical region (principal); S32.018A Other fracture of first lumbar vertebra, initial encounter for closed fracture; G95.29 Other cord compression; M50.023 Cervical disc disorder at C6-C7 level with myelopathy; S32.028A Other fracture of second lumbar vertebra, initial encounter for closed fracture; M48.061 Spinal stenosis, lumbar region without neurogenic claudication; M47.892 Other spondylosis, cervical region; M47.816 Spondylosis without myelopathy or radiculopathy, lumbar region; M51.26 Other intervertebral disc displacement, lumbar region; M50.222 Other cervical disc displacement at C5-C6 level; W07.XXXA Fall from chair, initial encounter; Y93.89 Activity, other specified; Y92.098 Other place in other non-institutional residence as the place of occurrence of the external cause; M25.551 Pain in right hip; R33.9 Retention of urine, unspecified; F32.9 Major depressive disorder, single episode, unspecified; K59.09 Other constipation; M40.40 Postural lordosis, site unspecified
CPT/HCPCS: 36415; 71045-TC-FY; 72100-TC-FY; 72125-TC; 72131-TC; 72141-TC; 72146-TC; 72148-TC; 72192-TC; 73523-TC-FY; 76000-TC-FY; 80048; 80053; 81003; 83735; 84100; 85025; 85027; 85610; 85730; 86850; 86900; 86901; 87086; 93005; 93010; 94010; 94760; 97116-GP; 97162-GP; 99285-25; J0131; J1644; J7030